=== PATIENT | male | born 1960 | race Caucasian/White ===

== ENCOUNTER → 2016-02-22 | Outpatient (CLI) | payer MEDICARE, MEDICAID ==
[~2016-02-22] MED LIST: /HCTZ25TA PO; AMBIEN PO; AMIT25TA PO; AMLO10TA2 PO; ATOR1TAB19 PO; COUM2.5T11 PO; DEPA500T2 PO; ESZO1TAB3 PO; FLOM5CAP PO; HYDR12.55 PO; HYDR25TAB PO; INVE6TAB2 PO; LAMO100T PO; LIPI10TA PO; LISI10TA4 PO; MELO15TA3 PO; METF500T PO; MILKSUS PO; MIRA3350 PO; NICO21DI5 TD; OLAN5TAB PO; OXYC-299 PO; OXYC5TAB2 PO; PERC5TAB6 PO; PRIN10TA PO; SENO8.6T2 PO; SERO150T PO; SERO200T PO; SERT-138 PO; SPIRIVA INH; TAMS0.4C PO; TIOT18INH INH; TRAZO50TA PO; TYLE325T5 PO; XANA1TAB2 PO; ZYPR5TAB2 PO; [UNRECOGNIZED DRUG - CODE] SL; alprazolam OR
--- NOTE | 2016-02-22 15:05 | REP ---
Clinical: Spondylosis. Technique: AP, lateral, bilateral oblique, flexion/extension and coned-down views. Findings: Alignment and lordosis is maintained. The vertebral bodies including transverse process and spinous processes are intact and without acute fracture / compression injury or subluxation. No evidence for spondylolysis or spondylolisthesis. Moderate multilevel degenerative disc disease includes anterior spurring/osteophytes, endplate sclerosis and disc space narrowing as well as hypertrophic facet changes at L5-S1. Impression: Moderate multilevel degenerative changes Signed by Alonso Harvey MD 02/22/2016 02:57 P
--- NOTE | 2016-02-22 15:10 | REP ---
CT pelvis without contrast 02/22/2016 Indication: fracture of sacrum, sequela of prior fracture; comparison made with prior abdominal series 12/09/2005 Technique: 3 mm contiguous spiral axial sections performed through the pelvis without contrast. The bony pelvis is without acute fracture or pelvic diastases. The hips are fracture or dislocation. Mild anterior angulation of the distal coccyx which can be compatible with anatomic variant or old healed fracture. Visualized portions of the abdominal aorta with atherosclerotic changes and no aneurysm. There are a few scattered sigmoid diverticula. Visualized portions of small bowel , terminal ileum, and appendix within normal limits. The bladder is unremarkable. Prostate is not enlarged. There is no free air or ascites Impression: Pelvis without acute fracture dislocation. Anterior angulation of the pelvis can be normal variant or sequela of previous trauma/old healed fracture. Signed by Aydee Villar MD 02/22/2016 03:02 P
--- NOTE | 2016-02-22 16:00 | REP ---
CERVICAL SPINE, SEVEN VIEWS: HISTORY: Spondylosis. The cervical sine is visualized from C1 to C6 in the lateral radiographs. There is no acute fracture. The C3-4 and C4-5 intervertebral discs are decreased in height consistent with disc degeneration. Osteophytes are present on C2 through 4. There is narrowing of the right C6 neural foramen secondary to uncinate process hypertrophy. The left neural foramina are not well seen. There are 2 mm of anterior subluxation of C3 on 4 and C4 on 5 with flexion. This is not seen in neutral or extension radiographs. IMPRESSION: Degenerative change as described above. Signed by Neftali Stevens MD 02/22/2016 04:49 P
== END ==
LOC: M RAD 14:12
PROVIDERS: ATTEND Neurological Surgery
DX: S32.19XS Other fracture of sacrum, sequela (principal)

== ENCOUNTER → 2016-03-03 | Outpatient (CLI) | payer MEDICARE, MEDICAID ==
--- NOTE | 2016-03-03 23:52 | ECWPNPC ---
PATIENT NAME: TROY ZARAGOZA : 1960 GENDER: MALE VISIT DATE: 03/03/2016 DISCHARGE DATE: 03/03/16 1145 VISIT LOCKED DATE TIME: PHYSICIAN: BEN LOPEZ RESOURCE: BEN LOPEZ REASON FOR APPOINTMENT 1. FOLLOW UP-POST CAUDAL HISTORY OF PRESENT ILLNESS HISTORY OF PRESENT ILLNESS: HERE FOR POST PROCEDURE F/U.HAD LESI 01-26-16.REPORTING VAGUE IMPROVEMENT IN LBP BUT STATES HE IS OVERALL BETTER SINCE HAVING PROCEDURES HERE.HAVING LEFT LBP THAT RADIATES INTO LEFT ANAL AND TESTICLE AREA.RATING PAIN VAS 4/10.LEFT GROIN,AND TESTICLE PAIN HAS NEVER RESPONDED TO OUR PROCEDURES HERE.PATIENT WILL BE HAVING [place] FOOT SURGERY [place] WITH DR. BERMUDEZ. PAIN THE PATIENT DESCRIBES THE PAIN... FALL RISK SCREENING: SCREENING :NO FALLS IN THE PAST YEAR CURRENT MEDICATIONS TAKING METFORMIN HCL 500 MG TABLET 1 TABLET WITH MEALS ORALLY TWICE A DAY, NOTES: UNSURE TAKING ATORVASTATIN CALCIUM 10 MG TABLET 1 TABLET ORALLY ONCE A DAY, NOTES: UNSURE TAKING FLOMAX 0.4 MG CAPSULE 2 CAPSULE 30 MINUTES AFTER THE SAME MEAL EACH DAY ORALLY ONCE A DAY, NOTES: UNSURE TAKING LAMOTRIGINE 100 MG TABLET 1 TAB ORALLY TWICE A DAY, NOTES: UNSURE TAKING LISINOPRIL 20 MG TABLET 1 TABLET ORALLY ONCE A DAY, NOTES: UNSURE TAKING TIZANIDINE HCL 4 MG TABLET 1 TABLET NEEDED ORALLY EVERY 8 HRS, NOTES: UNSURE TAKING CYMBALTA 30 MG CAPSULE DELAYED RELEASE PARTICLES 1 CAPSULE ORALLY ONCE A DAY, NOTES: UNSURE TAKING GLUCOSAMINE CHONDROITIN COMPLX - TABLET 1 TAB ORALLY BID, NOTES: UNSURE NOT-TAKING SEROQUEL 25 MG TABLET 1 TABLET ORALLY DAILY, NOTES: UNSURE NOT-TAKING VALIUM 10 MG TABLET 1 ORALLY 1 TAB 1HR PRE PROC. MDD1, NOTES: UNSURE NOT-TAKING OXYCODONE HCL 5 MG TABLET 2 ORALLY 2 TAB 1HR PRE PROC MDD2, NOTES: UNSURE NOT-TAKING GABAPENTIN 300 MG CAPSULE 1 CAPSULE ORALLY THREE TIMES A DAY, NOTES: UNSURE NOT-TAKING METHYLPREDNISOLONE 4 MG KIT ORALLY , NOTES: 11/25 7AM NOT-TAKING OXYCODONE-ACETAMINOPHEN 5-325 MG TABLET 1-2 TABLETS NEEDED ORALLY DIRECTED MDD 8TABLETS NOT-TAKING CLONIDINE HCL 0.1 MG TABLET DIRECTED ORALLY Q8H IF NEEDED FOR WITHDRAWAL SYMPTOMS MAX 3 PER DAY, NOTES: MADE HIM SICK/ DID NOT WORK NOT-TAKING AMLODIPINE 10 MG TABLET ORAL NOT-TAKING LISINOPRIL 10 10 MG TABLET DIRECTED ORAL NOT-TAKING AMLODIPINE 10 MG TABLET ORAL NOT-TAKING HYDROCHLOROTHIAZIDE 25 25 MG TABLET ORAL NOT-TAKING ALPRAZOLAM 1 MG TABLET 1 TABLET ORALLY TWICE A DAY NOT-TAKING ESZOPICLONE 3 MG TABLET 1 TABLET IMMEDIATELY BEFORE BEDTIME ORALLY ONCE A DAY NOT-TAKING CIPRO 500 MG TABLET 1 TABLET ORALLY TWICE A DAY NOT-TAKING FLEXERIL 10 MG 30 10 MG TABLETS ONE TABLET ORALLY EVERY 8 HOURS PRN PAIN MEDICATION LIST REVIEWED AND RECONCILED WITH THE PATIENT PAST MEDICAL HISTORY BIPOLAR HYPERTENSION DIABETES MALLITUS DEPRESSION BPH ALLERGIES PENICILLIN (FOR ALLERGIES USE ONLY): HIVES: ALLERGY HALDOL: MUSCLE SPASMS, HALLUCINATIONS: ALLERGY AMBIEN: HALLUCINATIONS: SIDE EFFECTS SOCIAL HISTORY GENERAL: TOBACCO USE ARE YOU A:CURRENT SMOKER HOW MANY CIGARETTES A DAY DO YOU SMOKE?21-30 HOW SOON AFTER YOU WAKE UP DO YOU SMOKE YOUR FIRST CIGARETTE?WITHIN 5 MIN HOW OFTEN DO YOU SMOKE CIGARETTES?EVERY DAY PATIENT COUNSELED ON THE DANGERS OF TOBACCO USE AND URGED TO QUIT: COUNCELED ON THE IMPORTANCE OF QUITTING. PT STATES HE IS NOT READY AT THIS TIME. ARE YOU INTERESTED IN QUITTING?NOT READY TO QUIT LEARNING BARRIERS / SPECIAL NEEDS ORIENTED TO PLAN OF CARE: PATIENT, PAIN MANAGEMENT PATIENT, ORIENTED TO PLAN OF CARE: PATIENT, PAIN MANAGEMENT PATIENT. NEW PATIENT PAIN DIARY TODAY'S VISITNOTES FROM 0-10, WHAT LEVEL IS YOUR PAIN TODAY?0 PAIN CLINIC PFS, CLERGY, PUBLIC HEALTH REFERRALS PFS REFERRAL NEEDED?NO CLERGY REFERRAL NEEDED?NO PUBLIC HEALTH REFERRAL NEEDED?NO WAS THE PROVIDER NOTIFIED OF ANY PERTINENT INFO?NO PFS REFERRAL NEEDED?NO CLERGY REFERRAL NEEDED?NO PUBLIC HEALTH REFERRAL NEEDED?NO WAS THE PROVIDER NOTIFIED OF ANY PERTINENT INFO?NO REVIEW OF SYSTEMS CONSTITUTIONAL: ANY CHANGE IN YOUR MEDICAL CONDITION? NO . CHILLS NO . FEVER NO . INFECTION: DO YOU HAVE NEW INFECTIONS? NO . DO YOU HAVE HISTORY OF MRSA? NO . MUSCULOSKELETAL: ANY NEW PATTERNS OF PAIN OR NUMBNESS? NO . GASTROENTEROLOGY: ANY NEW CHANGE IN BOWEL CONTROL? NO . GENITOURINARY: ANY NEW CHANGE IN BLADDER CONTROL? NO . IS THERE A CHANCE YOU COULD BE ? NO . HEMATOLOGY/LYMPH: DO YOU TAKE ANY BLOOD THINNERS? (FOR EXAMPLE- COUMADIN, PLAVIX, AGGRENOX, PLATEL, PRADAXA, OR XARELTO) NO . WHEN WAS YOUR LAST DOSE? DATE: TIME: . NEUROLOGY: HAVE YOU FALLEN IN THE PAST 6 MONTHS? NO . ANY NEW EXTREMITY NUMBNESS OR WEAKNESS? NO . CARDIOLOGY: DO YOU HAVE A PACEMAKER OR DEFIBRILLATOR? NO . RESPIRATORY: HAVE YOU BEEN SICK IN THE PAST WEEK? YES, BRONCHITIS LAST WEEK. TREATED WITH ANTIBIOTIC(NOT SURE WHAT) . FEVER NO . FLU LIKE SYMPTOMS? NO . COUGH YES, NON-PRODUCTIVE . INTEGUMENTARY: DO YOU HAVE ANY RASHES OR OPEN SORES? NO . ALLERGIC/IMMUNO: ARE YOU ALLERGIC TO SHELLFISH OR IV DYE? NO . ANY NEW ALLERGIES? NO . PSYCHIATRIC: DO YOU HAVE THOUGHTS OF HURTING YOURSELF OR SOMEONE ELSE? NO . ARE YOU ABUSED, NEGLECTED, OR IN AN UNSAFE ENVIRONMENT? NO . ENDOCRINOLOGY: ARE YOU DIABETIC? YES . OTHER: DO YOU NEED ANY PRESCRIPTIONS? NO . IF YES, PLEASE LIST: ____ . ANY NEW PROBLEMS WITH YOUR MEDICATIONS? NO . WHEN DID YOU LAST EAT? ____ . WHEN DID YOU LAST DRINK? ____ . WHAT DID YOU LAST DRINK? ____ . NAME OF PERSON DRIVING YOU HOME? ____ . DO YOU HAVE ANY OTHER QUESTIONS OR CONCERNS NO . REVIEWED BY: PROVIDER: BEN COTTON . VITAL SIGNS WT 223 LBS, HT 70 IN, BMI 31.99 INDEX, BP 151/97 MM HG, HR 85 /MIN, RR 18 /MIN, TEMP 97.9 F, OXYGEN SAT % 97%, NA INITIALS SC 11:07. EXAMINATION LUMBAR SPINE/LOWER BACK: LOWER BACK:THERE IS TENDERNESS AT LOWER BACK AND THE PARA SPINAL MUSCLE GROUP. STRAIGHT LEG RAISING TEST:POSITIVE AT 45 DEGREES ON, THE LEFT.NEGATIVE ON THE RIGHT.. MOTOR SYSTEM:5/5 BLE. SENSORY EXAM:NORMAL. REFLEXES:2/4 AND SYMMETRIC BLE. DIAGNOSTIC DATA-MRI L/S SPINE-09/23/1556-[id number] EXT-2016 REVIEWED. ASSESSMENTS PROTRUSION OF LUMBAR INTERVERTEBRAL DISC - M51.26 (PRIMARY) LUMBAR RADICULAR PAIN - M54.16 PROCEDURE CODES FA211 ESTABILISHED PATIENT [facility] CHARGE L8931 PAIN ASSESS POS TOOL F/U PLAN DOC G8427 DOC MEDS VERIFIED W/PT OR RE FOLLOW UP 2 MONTHS ELECTRONICALLY SIGNED BY YURY FALL ON 03/03/2016 AT 12:03 PM EST DISCLAIMER : THIS IS A VISIT SUMMARY EXTRACTED FROM THE [email or web address] CHART. IT IS NOT A COPY OF THE [email or web address] PROGRESS NOTE. TRAVON
== END ==
LOC: M PAIN 10:40
PROVIDERS: ATTEND Nurse Practitioner Family
DX: Z09 Encounter for follow-up examination after completed treatment for conditions other than malignant neoplasm (principal); M51.26 Other intervertebral disc displacement, lumbar region; M54.16 Radiculopathy, lumbar region; I10 Essential (primary) hypertension; E11.69 Type 2 diabetes mellitus with other specified complication; F31.9 Bipolar disorder, unspecified; F17.200 Nicotine dependence, unspecified, uncomplicated; Z88.0 Allergy status to penicillin; Z88.8 Allergy status to other drugs, medicaments and biological substances; Z79.84 Long term (current) use of oral hypoglycemic drugs; Z79.899 Other long term (current) drug therapy

== ENCOUNTER → 2016-03-04 | Day surgery (SDC) | payer MEDICARE ==
[~2016-03-04] VITALS: Ht 177.8 cm; Wt 100.7 kg
[~2016-03-04] MED LIST changes: +BACITRACIN PWD 50,000 UNITS VIAL As Ordered ONE; +BUPIVACAINE HCL 0.5% 30 ML VIAL As Ordered ONE; +KETAMINE HCL 200 MG/20 ML VIAL As Ordered ONE; +LIDOCAINE 2% INJ 100 MG/5 ML SDV (FOR ANES.) As Ordered ONE; +LIDOCAINE 2% MDV 20 ML VIAL As Ordered ONE; +LR 1,000 ML IV SCH; +MIDAZOLAM INJ 2 MG/2 ML VIAL (J2250) As Ordered ONE; +NEOSPORIN GU IRRIG 20 ML VIAL As Ordered ONE; +ONDANSETRON 4MG/2ML VIAL (J2405) As Ordered ONE; +ONDANSETRON 4MG/2ML VIAL (J2405) IV PRN; +PROPOFOL 200 MG/20 ML VIAL As Ordered ONE; +VANCOMYCIN HCL 1,000 MG, VIAL MATE ADAPTER 1 EACH in D5W 250 ML IV ONE; +dexameTHASONE 4 MG/ML 1ML VIAL (J1100) As Ordered ONE; +fentaNYL 100 MCG/2 ML INJECTION (J3010) As Ordered ONE
[2016-03-04] MEDS: PERCOCET 5MG/325MG TAB PO PRN ×2 (10:35→11:20)
[2016-03-04 11:30] VITALS: BP 154/81
--- NOTE | 2016-03-04 11:31 | REP ---
Portable bilateral foot radiographs: Six views. History: Postoperative views. Findings: Three views of each foot demonstrate that osteotomies have been performed resecting the distal end of the proximal phalanx of the fifth toe on both sides. X-rays are taken through overlying dressing. No other abnormality. Signed by Pineda Griggs MD 03/04/2016 02:39 P
--- NOTE | 2016-03-04 13:02 | RO ---
DATE OF PROCEDURE: 03/04/2016 PREOPERATIVE DIAGNOSIS: Hammertoe deformity 5th toe bilateral. POSTOPERATIVE DIAGNOSIS: Hammertoe deformity 5th toe bilateral. PROCEDURE: 1. Distal interphalangeal joint arthroplasty 5th toe right foot. 2. Distal interphalangeal joint arthroplasty 5th toe left foot. SURGEON: Alireza Maciel DPM ENVIRONMENTAL FIELD TECHNICIAN: None. ANESTHESIA: Local, monitored anesthesia care (MAC). IRRIGATION: Dilute bacitracin, neomycin and polymyxin B solution. HEMOSTASIS: Ankle pneumatic tourniquet at 200 mmHg, 9 minutes on the right foot and 9 minutes on the left foot. IMPLANTS USED: None. DESCRIPTION OF PROCEDURE: On 03/04/2016, this 55-year-old white male was taken from his hospital room to the operating room and placed on the operating room table in a supine position. Following the induction of IV sedation and local and regional anesthesia, the right and left lower extremity was prepped and draped in the usual aseptic manner. Sterile draping was completed. The ankle pneumatic tourniquet was rapidly inflated on the right extremity and the following procedure was performed. DISTAL INTERPHALANGEAL JOINT ARTHROPLASTY 5TH TOE RIGHT FOOT: Attention was directed to the patient's right foot where there was noted to be a hammertoe deformity. At this time, a 3 cm incision was placed over the proximal interphalangeal joint. The incision was deepened in subcutaneous tissues and all coursing venous tributaries were identified, underscored, clamped, cut, ligated and electrocoagulated as necessary. Transverse tenotomy and capsulotomy was performed at the level of the proximal interphalangeal joint. The medial and lateral collateral ligaments were sharply dissected free from the head of the proximal phalanx. Utilizing a power saw, an osteotomy was performed through the anatomical neck of the proximal phalanx from dorsal to plantar, medial to lateral, through and through and extirpated from the wound in toto. The wound was flushed with copious amounts of dilute bacitracin, neomycin and polymyxin B solution. Utilizing a 4.0 branded loop nylon suture, a 4-stranded core repair was performed in a M-shaped fashion coapting the extensor digitorum tendon to the 5th toe. The skin was coapted and maintained with #4-0 Prolene in a simple interrupted and horizontal mattress type fashion. Attention was directed towards closure bandaging, where 2 mg of dexamethasone sodium phosphate was instilled proximal in the surgical site. Attention was directed towards bandaging where a sterile compressive bandage was applied consisting of Adaptic, 4 x 4's, 4 x 4 splints, Juan Luis and Coban. Attention was then directed to the patient's left foot, where the ankle pneumatic tourniquet was rapidly inflated and the following procedure was performed. PROXIMAL INTERPHALANGEAL JOINT ARTHROPLASTY 5TH TOE LEFT FOOT: Attention was directed to the patient's 5th toe of the left foot where the procedure performed on the 5th toe of the right foot was then performed on the 5th toe of the left foot, though variation that of anatomical location. Patient having apparently tolerated the surgical procedure well was taken from the operating room (OR) to the recovery room with vital signs stable and the patient afebrile for further monitoring by the anesthesia department. All surgical specimens removed during the operative procedure were sent to pathology for gross and microscopic examination. Postoperative instructions will be given upon discharge.
== END | disposition home or self-care (01) ==
LOC: M SDC 07:20
PROVIDERS: ATTEND Podiatrist
DX: M20.42 Other hammer toe(s) (acquired), left foot (principal); M20.41 Other hammer toe(s) (acquired), right foot; F17.290 Nicotine dependence, other tobacco product, uncomplicated; I10 Essential (primary) hypertension; E11.40 Type 2 diabetes mellitus with diabetic neuropathy, unspecified; R29.898 Other symptoms and signs involving the musculoskeletal system; M51.36 Other intervertebral disc degeneration, lumbar region; M15.0 Primary generalized (osteo)arthritis; G89.29 Other chronic pain; F31.9 Bipolar disorder, unspecified; J44.9 Chronic obstructive pulmonary disease, unspecified; N40.0 Benign prostatic hyperplasia without lower urinary tract symptoms; Z88.0 Allergy status to penicillin; Z88.8 Allergy status to other drugs, medicaments and biological substances; Z79.899 Other long term (current) drug therapy; Z96.652 Presence of left artificial knee joint
CPT/HCPCS: 28285; 73630; 88300; J1100; J2250; J2405; J3010; J3370

== ENCOUNTER → 2016-05-02 | Outpatient (CLI) | payer MEDICARE, MEDICAID ==
[~2016-05-02] MED LIST changes: -BACITRACIN PWD 50,000 UNITS VIAL As Ordered ONE; -BUPIVACAINE HCL 0.5% 30 ML VIAL As Ordered ONE; -KETAMINE HCL 200 MG/20 ML VIAL As Ordered ONE; -LIDOCAINE 2% INJ 100 MG/5 ML SDV (FOR ANES.) As Ordered ONE; -LIDOCAINE 2% MDV 20 ML VIAL As Ordered ONE; -LR 1,000 ML IV SCH; -MIDAZOLAM INJ 2 MG/2 ML VIAL (J2250) As Ordered ONE; -NEOSPORIN GU IRRIG 20 ML VIAL As Ordered ONE; -ONDANSETRON 4MG/2ML VIAL (J2405) As Ordered ONE; -ONDANSETRON 4MG/2ML VIAL (J2405) IV PRN; -PROPOFOL 200 MG/20 ML VIAL As Ordered ONE; -VANCOMYCIN HCL 1,000 MG, VIAL MATE ADAPTER 1 EACH in D5W 250 ML IV ONE; -dexameTHASONE 4 MG/ML 1ML VIAL (J1100) As Ordered ONE; -fentaNYL 100 MCG/2 ML INJECTION (J3010) As Ordered ONE
--- NOTE | 2016-05-03 02:33 | ECWPNPC ---
PATIENT NAME: TROY ZARAGOZA : 1960 GENDER: MALE VISIT DATE: 05/02/2016 DISCHARGE DATE: 05/02/16 1151 VISIT LOCKED DATE TIME: PHYSICIAN: BEN LOPEZ RESOURCE: BEN LOPEZ REASON FOR APPOINTMENT 1. FOLLOWUP-BACK HISTORY OF PRESENT ILLNESS HISTORY OF PRESENT ILLNESS: HERE FOR CHRONIC LOW BACK PAIN .RATING PAIN VAS 4/10.REVIEWED MRI L/S SPINE SHOWING MULTILEVEL FACET ARTHROPATHY.DISCUSSED TREATMENT OPTIONS.PAIN IS LOCATED ACROSS LOW BACK L>R.PAIN IS AGGREVATED BY PROLONGED SITTING .RELIEVED BY TYLENOL OR IBUPROFEN PRN AND REPOSITIONING.LAST ATTENDED PT ONE YEAR AGO.THIS WAS SOMEWHAT HELPFUL. PAIN THE PATIENT DESCRIBES THE PAIN... FALL RISK SCREENING: SCREENING :NO FALLS IN THE PAST YEAR CURRENT MEDICATIONS TAKING METFORMIN HCL 500 MG TABLET 1 TABLET WITH MEALS ORALLY TWICE A DAY, NOTES: UNSURE TAKING ATORVASTATIN CALCIUM 10 MG TABLET 1 TABLET ORALLY ONCE A DAY, NOTES: UNSURE TAKING FLOMAX 0.4 MG CAPSULE 2 CAPSULE 30 MINUTES AFTER THE SAME MEAL EACH DAY ORALLY ONCE A DAY, NOTES: UNSURE TAKING LAMOTRIGINE 100 MG TABLET 1 TAB ORALLY TWICE A DAY, NOTES: UNSURE TAKING LISINOPRIL 20 MG TABLET 1 TABLET ORALLY ONCE A DAY, NOTES: UNSURE TAKING TIZANIDINE HCL 4 MG TABLET 1 TABLET NEEDED ORALLY EVERY 8 HRS, NOTES: UNSURE TAKING CYMBALTA 30 MG CAPSULE DELAYED RELEASE PARTICLES 1 CAPSULE ORALLY ONCE A DAY, NOTES: UNSURE TAKING GLUCOSAMINE CHONDROITIN COMPLX - TABLET 1 TAB ORALLY BID, NOTES: UNSURE NOT-TAKING SEROQUEL 25 MG TABLET 1 TABLET ORALLY DAILY, NOTES: UNSURE NOT-TAKING VALIUM 10 MG TABLET 1 ORALLY 1 TAB 1HR PRE PROC. MDD1, NOTES: UNSURE NOT-TAKING OXYCODONE HCL 5 MG TABLET 2 ORALLY 2 TAB 1HR PRE PROC MDD2, NOTES: UNSURE NOT-TAKING GABAPENTIN 300 MG CAPSULE 1 CAPSULE ORALLY THREE TIMES A DAY, NOTES: UNSURE NOT-TAKING METHYLPREDNISOLONE 4 MG KIT ORALLY , NOTES: 11/25 7AM NOT-TAKING OXYCODONE-ACETAMINOPHEN 5-325 MG TABLET 1-2 TABLETS NEEDED ORALLY DIRECTED MDD 8TABLETS NOT-TAKING CLONIDINE HCL 0.1 MG TABLET DIRECTED ORALLY Q8H IF NEEDED FOR WITHDRAWAL SYMPTOMS MAX 3 PER DAY, NOTES: MADE HIM SICK/ DID NOT WORK NOT-TAKING AMLODIPINE 10 MG TABLET ORAL NOT-TAKING LISINOPRIL 10 10 MG TABLET DIRECTED ORAL NOT-TAKING AMLODIPINE 10 MG TABLET ORAL NOT-TAKING HYDROCHLOROTHIAZIDE 25 25 MG TABLET ORAL NOT-TAKING ALPRAZOLAM 1 MG TABLET 1 TABLET ORALLY TWICE A DAY NOT-TAKING ESZOPICLONE 3 MG TABLET 1 TABLET IMMEDIATELY BEFORE BEDTIME ORALLY ONCE A DAY NOT-TAKING CIPRO 500 MG TABLET 1 TABLET ORALLY TWICE A DAY NOT-TAKING FLEXERIL 10 MG 30 10 MG TABLETS ONE TABLET ORALLY EVERY 8 HOURS PRN PAIN MEDICATION LIST REVIEWED AND RECONCILED WITH THE PATIENT PAST MEDICAL HISTORY BIPOLAR HYPERTENSION DIABETES MALLITUS DEPRESSION BPH ALLERGIES PENICILLIN (FOR ALLERGIES USE ONLY): HIVES: ALLERGY HALDOL: MUSCLE SPASMS, HALLUCINATIONS: ALLERGY AMBIEN: HALLUCINATIONS: SIDE EFFECTS SOCIAL HISTORY GENERAL: TOBACCO USE ARE YOU A:NONSMOKER LEARNING BARRIERS / SPECIAL NEEDS ORIENTED TO PLAN OF CARE: PATIENT, PAIN MANAGEMENT PATIENT, ORIENTED TO PLAN OF CARE: PATIENT, PAIN MANAGEMENT PATIENT. NEW PATIENT PAIN DIARY TODAY'S VISITNOTES FROM 0-10, WHAT LEVEL IS YOUR PAIN TODAY?0 PAIN CLINIC PFS, CLERGY, PUBLIC HEALTH REFERRALS PFS REFERRAL NEEDED?NO CLERGY REFERRAL NEEDED?NO PUBLIC HEALTH REFERRAL NEEDED?NO WAS THE PROVIDER NOTIFIED OF ANY PERTINENT INFO?NO PFS REFERRAL NEEDED?NO CLERGY REFERRAL NEEDED?NO PUBLIC HEALTH REFERRAL NEEDED?NO WAS THE PROVIDER NOTIFIED OF ANY PERTINENT INFO?NO REVIEW OF SYSTEMS CONSTITUTIONAL: ANY CHANGE IN YOUR MEDICAL CONDITION? YES PT HAD SURGERY BOTH FEET [facility] LATE FEBRUARY WITH DR. BERMUDEZ. . CHILLS NO . FEVER NO . INFECTION: DO YOU HAVE NEW INFECTIONS? NO . DO YOU HAVE HISTORY OF MRSA? NO . MUSCULOSKELETAL: ANY NEW PATTERNS OF PAIN OR NUMBNESS? YES PT REPORTS BACK PAIN FEELS MORE &QUOT;SHALLOW&QUOT; THAN IT USED TO . GASTROENTEROLOGY: ANY NEW CHANGE IN BOWEL CONTROL? NO . GENITOURINARY: ANY NEW CHANGE IN BLADDER CONTROL? NO . IS THERE A CHANCE YOU COULD BE ? NO . HEMATOLOGY/LYMPH: DO YOU TAKE ANY BLOOD THINNERS? (FOR EXAMPLE- COUMADIN, PLAVIX, AGGRENOX, PLATEL, PRADAXA, OR XARELTO) NO . WHEN WAS YOUR LAST DOSE? DATE: TIME: . NEUROLOGY: HAVE YOU FALLEN IN THE PAST 6 MONTHS? NO . ANY NEW EXTREMITY NUMBNESS OR WEAKNESS? NO . CARDIOLOGY: DO YOU HAVE A PACEMAKER OR DEFIBRILLATOR? NO . RESPIRATORY: HAVE YOU BEEN SICK IN THE PAST WEEK? NO . FEVER NO . FLU LIKE SYMPTOMS? NO . COUGH NO . INTEGUMENTARY: DO YOU HAVE ANY RASHES OR OPEN SORES? NO . ALLERGIC/IMMUNO: ARE YOU ALLERGIC TO SHELLFISH OR IV DYE? NO . ANY NEW ALLERGIES? NO . PSYCHIATRIC: DO YOU HAVE THOUGHTS OF HURTING YOURSELF OR SOMEONE ELSE? NO . ARE YOU ABUSED, NEGLECTED, OR IN AN UNSAFE ENVIRONMENT? NO . ENDOCRINOLOGY: ARE YOU DIABETIC? YES . OTHER: DO YOU NEED ANY PRESCRIPTIONS? NO . IF YES, PLEASE LIST: ____ . ANY NEW PROBLEMS WITH YOUR MEDICATIONS? NO . WHEN DID YOU LAST EAT? ____ . WHEN DID YOU LAST DRINK? ____ . WHAT DID YOU LAST DRINK? ____ . NAME OF PERSON DRIVING YOU HOME? ____ . DO YOU HAVE ANY OTHER QUESTIONS OR CONCERNS NO . REVIEWED BY: PROVIDER: BEN COTTON . VITAL SIGNS WT 232.8 LBS, HT 70 IN, BMI 33.40 INDEX, BP 149/91 MM HG, HR 76 /MIN, RR 18 /MIN, TEMP 97.6 F, OXYGEN SAT % 95%, SAFE IN ENV? (Y/N) YES, NA INITIALS SC 11:03, REVIEWED BY: ALEJANDRA. EXAMINATION LUMBAR SPINE/LOWER BACK: LOWER BACK:THERE IS TENDERNESS AT LOWER BACK AND THE PARA SPINAL MUSCLE GROUP. STRAIGHT LEG RAISING TEST:POSITIVE AT 45 DEGREES ON, THE LEFT.NEGATIVE ON THE RIGHT.. MOTOR SYSTEM:5/5 BLE. SENSORY EXAM:NORMAL. REFLEXES:2/4 AND SYMMETRIC BLE. DIAGNOSTIC DATA-MRI L/S SPINE-09/23/1552-[id number] EXT-2016 REVIEWED. ASSESSMENTS PROTRUSION OF LUMBAR INTERVERTEBRAL DISC - M51.26 (PRIMARY) LUMBAR RADICULAR PAIN - M54.16 TREATMENT PROTRUSION OF LUMBAR INTERVERTEBRAL DISC LUMBAR FACET THERAPEUTICBEN LOPEZ 05/02/2016 11:34:13 AM > BILAT. LUMBAR FACET THERAPEUTIC L3/4-L4/5 NOTES: # 226 TOBACCO USE SCREENING/INTERVENTION: PATIENT CURRENTLY USED TOBACCO. WAS OFFERED SMOKING CESSATION FOR GUIDANCE IN QUITTING THROUGH THE [facility] QUITS PROGRAM AND THE [facility] CESSATION PROGRAM. , #128 - SCREENING BMI AND F/U PLAN IN : BMI ABOVE NORMAL TODAY. DISCUSSED WITH PATIENT NUTRITIONAL FOOD CHOICES TO ASSIST WITH WEIGHT LOSS. RECCOMMENDED REDUCING SALT, SUGAR, SODA INTAKE. RECOMMEND INCREASE ACTIVITY TO INCLUDE WALKING ON A REGULAR BASIS. PROFESSIONAL NUTRITIONAL NUTRITIONAL GUIDANCE WAS OFFERED AND WAS DECLINED. , PATIENT WAS ADVISED TO START A WALKING PROGRAM TO STRENGTHEN LUMBAR PARASPINAL MUSCLES AND IMPROVE MOBILITY. THEY WERE ADVISED THAT THIS WILL IMPROVE WEIGHT LOSS AND ALSO DEPRESSION/FIBROMYALGIA SYMPTOMS. ADVISED TO WALK 10 MINUTES EVERY OTHER DAY ON A FLAT SURFACE. EMPHASIZED THE IMPORTANCE OF DOING THIS CONSISTANTLY AND NOT SPORATICALLY TO AVOID INJURY. STRONG ADVISED NOT TO DO MORE THAN 10 MINUTES EVERY OTHER DSY FOR THE FIRST 4 WEEKS.,FACET JOINT INJECTION: YOUR EXPERIENCE MATERIAL WAS PRINTED. PROCEDURE CODES FA211 ESTABILISHED PATIENT [facility]AC[facility] CHARGE G8783 BP SCR PRFRM RCMDD DEFIND SCR INTVL G8730 PAIN ASSESS POS TOOL F/U PLAN DOC 3016F PT SCRND UNHLTHY OH USE 1124F ACP DISCUSS-NO [id number] DOCD 0518F FALL PLAN OF CARE DOCD G8427 DOC MEDS VERIFIED W/PT OR RE G8417 BMI >=30 CALCUATE W/FOLLOWUP 3288F FALL RISK ASSESSMENT DOCD 4004F PT TOBACCO SCREEN RCVD TLK DISPOSITION & COMMUNICATION FOLLOW UP 2WK POST (REASON: L33/4-L4/5 LUMBAR THERAPEUTIC FACET) ELECTRONICALLY SIGNED BY YURY FALL ON 05/02/2016 AT 04:33 PM EDT DISCLAIMER : THIS IS A VISIT SUMMARY EXTRACTED FROM THE [employer] CHART. IT IS NOT A COPY OF THE [employer] PROGRESS NOTE. MTDD
== END ==
LOC: M PAIN 10:40
PROVIDERS: ATTEND Nurse Practitioner Family
DX: M51.26 Other intervertebral disc displacement, lumbar region (principal); M54.16 Radiculopathy, lumbar region; G89.29 Other chronic pain; Z79.899 Other long term (current) drug therapy; Z79.84 Long term (current) use of oral hypoglycemic drugs; I10 Essential (primary) hypertension; M79.7 Fibromyalgia; E11.9 Type 2 diabetes mellitus without complications; F32.9 Major depressive disorder, single episode, unspecified; N40.0 Benign prostatic hyperplasia without lower urinary tract symptoms; Z72.0 Tobacco use; E66.9 Obesity, unspecified; Z88.8 Allergy status to other drugs, medicaments and biological substances; Z88.0 Allergy status to penicillin

== ENCOUNTER → 2016-05-20 | Outpatient (CLI) | payer MEDICARE, MEDICAID ==
[~2016-05-20] MED LIST changes: +BUPIVACAINE HCL 0.25% 30 ML VIAL As Ordered ONE; +ISOVUE-M 300 61% 15ML VIAL (Q9967) As Ordered ONE; +LIDOCAINE 1% SDV INJ 30 ML VIAL As Ordered ONE; +TRIAMCINOLONE ACETONIDE SUSP 40 MG/ML VIAL (J3301) As Ordered ONE; +diazePAM 5 MG TAB As Ordered ONE
--- NOTE | 2016-05-20 14:30 | REP ---
C-ARM VIEWS LUMBAR SPINE: CLINICAL HISTORY: Pain. Two C-arm views lumbar spine are performed during injection by Dr. Poe. Bono are seen along the lower lumbar spine and contrast is injected. Fluoroscopy time is 18 seconds. Signed by Augusto Villareal MD 05/20/2016 05:40 P
--- NOTE | 2016-06-01 00:09 | ECWPNPC ---
PATIENT NAME: TROY ZARAGOZA : 1960 GENDER: MALE VISIT DATE: 05/20/2016 DISCHARGE DATE: 05/20/16 1423 VISIT LOCKED DATE TIME: PHYSICIAN: KATRIN BERRY RESOURCE: KATRIN BERRY REASON FOR APPOINTMENT 1. LUMBAR FACET THERAPEUTIC HISTORY OF PRESENT ILLNESS HISTORY OF PRESENT ILLNESS: PAIN THE PATIENT DESCRIBES THE PAIN... FALL RISK SCREENING: SCREENING :NO FALLS IN THE PAST YEAR CURRENT MEDICATIONS TAKING METFORMIN HCL 500 MG TABLET 1 TABLET WITH MEALS ORALLY TWICE A DAY, NOTES: [id number] TAKING ATORVASTATIN CALCIUM 10 MG TABLET 1 TABLET ORALLY ONCE A DAY, NOTES: UNSURE TAKING FLOMAX 0.4 MG CAPSULE 2 CAPSULE 30 MINUTES AFTER THE SAME MEAL EACH DAY ORALLY ONCE A DAY, NOTES: UNSURE TAKING LAMOTRIGINE 100 MG TABLET 1 TAB ORALLY TWICE A DAY, NOTES: UNSURE TAKING LISINOPRIL 20 MG TABLET 1 TABLET ORALLY ONCE A DAY, NOTES: UNSURE TAKING TIZANIDINE HCL 4 MG TABLET 1 TABLET NEEDED ORALLY EVERY 8 HRS, NOTES: UNSURE TAKING CYMBALTA 30 MG CAPSULE DELAYED RELEASE PARTICLES 1 CAPSULE ORALLY ONCE A DAY, NOTES: UNSURE TAKING GLUCOSAMINE CHONDROITIN COMPLX - TABLET 1 TAB ORALLY BID, NOTES: UNSURE NOT-TAKING SEROQUEL 25 MG TABLET 1 TABLET ORALLY DAILY, NOTES: UNSURE NOT-TAKING VALIUM 10 MG TABLET 1 ORALLY 1 TAB 1HR PRE PROC. MDD1, NOTES: UNSURE NOT-TAKING OXYCODONE HCL 5 MG TABLET 2 ORALLY 2 TAB 1HR PRE PROC MDD2, NOTES: UNSURE NOT-TAKING GABAPENTIN 300 MG CAPSULE 1 CAPSULE ORALLY THREE TIMES A DAY, NOTES: UNSURE NOT-TAKING METHYLPREDNISOLONE 4 MG KIT ORALLY , NOTES: 11/25 7AM NOT-TAKING OXYCODONE-ACETAMINOPHEN 5-325 MG TABLET 1-2 TABLETS NEEDED ORALLY DIRECTED MDD 8TABLETS NOT-TAKING CLONIDINE HCL 0.1 MG TABLET DIRECTED ORALLY Q8H IF NEEDED FOR WITHDRAWAL SYMPTOMS MAX 3 PER DAY, NOTES: MADE HIM SICK/ DID NOT WORK NOT-TAKING AMLODIPINE 10 MG TABLET ORAL NOT-TAKING LISINOPRIL 10 10 MG TABLET DIRECTED ORAL NOT-TAKING AMLODIPINE 10 MG TABLET ORAL NOT-TAKING HYDROCHLOROTHIAZIDE 25 25 MG TABLET ORAL NOT-TAKING ALPRAZOLAM 1 MG TABLET 1 TABLET ORALLY TWICE A DAY NOT-TAKING ESZOPICLONE 3 MG TABLET 1 TABLET IMMEDIATELY BEFORE BEDTIME ORALLY ONCE A DAY NOT-TAKING CIPRO 500 MG TABLET 1 TABLET ORALLY TWICE A DAY NOT-TAKING FLEXERIL 10 MG 30 10 MG TABLETS ONE TABLET ORALLY EVERY 8 HOURS PRN PAIN MEDICATION LIST REVIEWED AND RECONCILED WITH THE PATIENT PAST MEDICAL HISTORY BIPOLAR HYPERTENSION DIABETES MALLITUS DEPRESSION BPH ALLERGIES PENICILLIN (FOR ALLERGIES USE ONLY): HIVES: ALLERGY HALDOL: MUSCLE SPASMS, HALLUCINATIONS: ALLERGY AMBIEN: HALLUCINATIONS: SIDE EFFECTS SOCIAL HISTORY GENERAL: PAIN CLINIC PFS, CLERGY, PUBLIC HEALTH REFERRALS CLERGY REFERRAL NEEDED?NO WAS THE PROVIDER NOTIFIED OF ANY PERTINENT INFO?NO PFS REFERRAL NEEDED?NO PUBLIC HEALTH REFERRAL NEEDED?NO PATIENT: ____. REVIEW OF SYSTEMS CONSTITUTIONAL: ANY CHANGE IN YOUR MEDICAL CONDITION? NO . CHILLS NO . FEVER NO . INFECTION: DO YOU HAVE NEW INFECTIONS? NO . DO YOU HAVE HISTORY OF MRSA? NO . MUSCULOSKELETAL: ANY NEW PATTERNS OF PAIN OR NUMBNESS? YES, BACK AND HIPS SHALLOW PAIN IF LYING DOWN TOO LONG . GASTROENTEROLOGY: ANY NEW CHANGE IN BOWEL CONTROL? NO . GENITOURINARY: ANY NEW CHANGE IN BLADDER CONTROL? NO . IS THERE A CHANCE YOU COULD BE ? NO . HEMATOLOGY/LYMPH: DO YOU TAKE ANY BLOOD THINNERS? (FOR EXAMPLE- COUMADIN, PLAVIX, AGGRENOX, PLATEL, PRADAXA, OR XARELTO) NO . WHEN WAS YOUR LAST DOSE? DATE: TIME: . NEUROLOGY: HAVE YOU FALLEN IN THE PAST 6 MONTHS? NO . ANY NEW EXTREMITY NUMBNESS OR WEAKNESS? NO . CARDIOLOGY: DO YOU HAVE A PACEMAKER OR DEFIBRILLATOR? NO . RESPIRATORY: HAVE YOU BEEN SICK IN THE PAST WEEK? NO . FEVER NO . FLU LIKE SYMPTOMS? NO . COUGH NO . INTEGUMENTARY: DO YOU HAVE ANY RASHES OR OPEN SORES? NO . ALLERGIC/IMMUNO: ARE YOU ALLERGIC TO SHELLFISH OR IV DYE? NO . ANY NEW ALLERGIES? NO . PSYCHIATRIC: DO YOU HAVE THOUGHTS OF HURTING YOURSELF OR SOMEONE ELSE? NO . ARE YOU ABUSED, NEGLECTED, OR IN AN UNSAFE ENVIRONMENT? NO . ENDOCRINOLOGY: ARE YOU DIABETIC? YES . OTHER: DO YOU NEED ANY PRESCRIPTIONS? NO . IF YES, PLEASE LIST: ____ . ANY NEW PROBLEMS WITH YOUR MEDICATIONS? NO . WHEN DID YOU LAST EAT? 05-19-16 PM . WHEN DID YOU LAST DRINK? 05-20-16 0500 . WHAT DID YOU LAST DRINK? COFFEE . NAME OF PERSON DRIVING YOU HOME? MOM . DO YOU HAVE ANY OTHER QUESTIONS OR CONCERNS NO . REVIEWED BY: PROVIDER: . VITAL SIGNS WT 232 LBS, HT 70 IN, BMI 33.28 INDEX, BP 140/80 MM HG, HR 72 /MIN, RR 18 /MIN, TEMP 98.3 F, OXYGEN SAT % 95%, NA INITIALS [id number], REVIEWED BY: CM. ASSESSMENTS SPONDYLOSIS WITHOUT MYELOPATHY OR RADICULOPATHY, LUMBAR REGION - M47.816 (PRIMARY) SPONDYLOSIS WITHOUT MYELOPATHY OR RADICULOPATHY, LUMBOSACRAL REGION - M47.817 PROCEDURES PN LUMBAR FACET BLOCK THERAPEUTIC PRE PROCEDURE DIAGNOSIS LUMBAR SPONDYLOSIS, :, LUMBOSACRAL SPONDYLOSIS POST PROCEDURE DIAGNOSIS LUMBAR SPONDYLOSIS, LUMBOSACRAL SPONDYLOSIS PROCEDURE BILATERAL L4-L5 AND BILATERAL L5-S1 FACET THERAPEUTIC BLOCK SURGEON DR. KATRIN BERRY TRUCK CHAUFFEUR NONE ANESTHESIA LOCAL PRE PROCEDURE NOTE THE PATIENT HAS A HISTORY OF CHRONIC LOW BACK PAIN. I EVALUATE THE PATIENT AND REVIEWED THE CHART. I WENT OVER THE RISKS, ALTERNATIVES, AND BENEFITS ASSOCIATED WITH THIS PROCEDURE. THE PATIENT WOULD LIKE TO PROCEED AND GIVE CONSENT TO PERFORMED THE PROCEDURE. THE PATIENT DENIES UNEXPLAINABLE WEIGHT LOSS, FEVER, CHILLS, OR NEW CHANGES IN URINARY OR BOWEL CONTROL DESCRIPTION OF PROCEDURE THE PATIENT WAS BROUGHT TO THE PROCEDURE ROOM AND PLACED IN THE PRONE POSITION. THE LUMBOSACRAL AREA WAS CLEANED WITH CHLORAPREP SOLUTION AND DRAPED ASEPTICALLY. THE PROCEDURE WAS DONE UNDER STERILE CONDITIONS. I CHECKED LATERALITY AND THE LEVEL WHERE THE PROCEDURE WAS GOING TO BE PERFORMED WITH THE PATIENT AND THE SUPPORTING STAFF AT THE MOMENT OF THE TIME OUT IN THE PROCEDURE ROOM. UNDER FLUOROSCOPIC GUIDANCE, THE TARGET POINT WAS SELECTED AT THE RIGHT AND LEFT L4-L5 AND RIGHT AND LEFT L5-S1 FACET JOINT. TARGET POINT WAS SELECTED AFTER LATERAL ROTATION AND TILT OF THE MAGNIFIER OF THE C-ARM. LIDOCAINE 0.5% WAS USED TO NUMB THE SKIN AND THE SUBCUTANEOUS TISSUE BELOW IT. SPINAL NEEDLES, 22-GAUGE, WERE ADVANCED UNDER FLUOROSCOPIC GUIDANCE AND FOLLOWING PATIENT FEEDBACK UNTIL THE TARGETS WERE TOUCHED. THE POSITION OF THE NEEDLES WAS VERIFIED WITH AP AND LATERAL VIEWS. AFTER PROPER POSITION OF THE NEEDLES WAS ACHIEVED, ISOVUE-M DYE 30% 0.1 ML WAS INJECTED SHOWING ADEQUATE SPREAD OF THE DYE. THEN A SOLUTION OF 1.9 ML OF BUPIVACAINE 0.125% OF KENALOG 10 MG WAS INJECTED AT EACH SITE. THERE WAS NO EVIDENCE OF BLOOD, PARESTHESIA OR CEREBROSPINAL FLUID DURING THE PROCEDURE. THE PATIENT WAS SENT TO THE RECOVERY ROOM. THE PATIENT WAS MOVING THE EXTREMITIES AND DOING WELL. THERE WAS NO COMPLICATION DURING THE PROCEDURE. FLUOROSCOPY TIME WAS 18 SECONDS POST PROCEDURE NOTE THE PATIENT WILL BE SEEN IN A FOLLOW UP IN THE NEXT FEW WEEKS. INSTRUCTIONS WERE GIVEN, QUESTIONS WERE ANSWERED, AND THE PATIENT EXPRESSED UNDERSTANDING AND AGREES WITH THE PLAN. I, MICH SPENCE, DOCUMENTED THE ABOVE INFORMATION ACTING A SCRIBE FOR DR. BERRY. I HAVE REVIEWED THE ABOVE DOCUMENT, WRITTEN BY MICH SPENCE SCRIBE AND I VERIFY THAT IT IS ACCURATE. DIAGNOSTIC IMAGING [facility] FACET BLOCK (PAIN)[id number] PROCEDURE CODES 09987 INJ PARAVERT F JNT L/S 1 LEV 75954 INJ PARAVERT F JNT L/S 2 LEV 6045F RADXPS IN END [id number] PXD DISPOSITION & COMMUNICATION FOLLOW UP 3 WEEKS ELECTRONICALLY SIGNED BY KATRIN BERRY MD ON 05/31/2016 AT 08:34 PM EDT DISCLAIMER : THIS IS A VISIT SUMMARY EXTRACTED FROM THE [employer] CHART. IT IS NOT A COPY OF THE [employer] PROGRESS NOTE. MTDD
== END ==
LOC: M PAIN 11:40
PROVIDERS: ATTEND Anesthesiology
DX: G89.29 Other chronic pain (principal); M47.816 Spondylosis without myelopathy or radiculopathy, lumbar region; M47.817 Spondylosis without myelopathy or radiculopathy, lumbosacral region; M54.5 Low back pain; Z79.84 Long term (current) use of oral hypoglycemic drugs; Z79.899 Other long term (current) drug therapy; Z88.0 Allergy status to penicillin; Z88.8 Allergy status to other drugs, medicaments and biological substances; I10 Essential (primary) hypertension; E11.9 Type 2 diabetes mellitus without complications; F32.9 Major depressive disorder, single episode, unspecified
CPT/HCPCS: 64493; 64494; J3301; Q9967

== ENCOUNTER → 2016-06-10 | Outpatient (CLI) | payer MEDICARE, MEDICAID ==
[~2016-06-10] MED LIST changes: -BUPIVACAINE HCL 0.25% 30 ML VIAL As Ordered ONE; -ISOVUE-M 300 61% 15ML VIAL (Q9967) As Ordered ONE; -LIDOCAINE 1% SDV INJ 30 ML VIAL As Ordered ONE; -TRIAMCINOLONE ACETONIDE SUSP 40 MG/ML VIAL (J3301) As Ordered ONE; -diazePAM 5 MG TAB As Ordered ONE
--- NOTE | 2016-06-21 02:19 | ECWPNPC ---
PATIENT NAME: TROY ZARAGOZA : 1960 GENDER: MALE VISIT DATE: 06/10/2016 DISCHARGE DATE: 06/10/16 1206 VISIT LOCKED DATE TIME: PHYSICIAN: BEN LOPEZ RESOURCE: BEN LOPEZ REASON FOR APPOINTMENT 1. BACK HISTORY OF PRESENT ILLNESS HISTORY OF PRESENT ILLNESS: HERE FOR POST PROCEDURE F/U.HAD BILATERAL L5/S1 THERAPEUTIC FACET BLOCK ON 05-20-16.REPORTS >50% IMPROVEEMENT IN LOW BACK PAIN THAT CONTINUES TODAY.DISCUSSED GANGLION IMPAR BLOCK.DR. BERRY HAD SUGGESTED THIS FOR LOW SACRAL/TESTICULAR PAIN.WE DISCUSSED POTENTIAL RISKS ASSOCIATED WITH THIS BLOCK TO INCLUDE PERFORATION OF RECTUM.PATIENT WAS CONCERNED ABOUT POSSIBILITY OF ERECTILE DYSFUNCTION AND I ASKED DR. BERRY ABOUT THIS CONCERN.DR. BERRY DIDNT FEEL THAT THIS WAS A LIKELY SCENARIO OR COMPLICATION.RATING PELVIC AND SACRAL PAIN 4/10 VAS. FALL RISK SCREENING: SCREENING :NO FALLS IN THE PAST YEAR CURRENT MEDICATIONS TAKING METFORMIN HCL 500 MG TABLET 1 TABLET WITH MEALS ORALLY TWICE A DAY TAKING ATORVASTATIN CALCIUM 10 MG TABLET 1 TABLET ORALLY ONCE A DAY TAKING FLOMAX 0.4 MG CAPSULE 2 CAPSULE 30 MINUTES AFTER THE SAME MEAL EACH DAY ORALLY ONCE A DAY TAKING LAMOTRIGINE 100 MG TABLET 1 TAB ORALLY TWICE A DAY TAKING LISINOPRIL 20 MG TABLET 1 TABLET ORALLY ONCE A DAY TAKING TIZANIDINE HCL 4 MG TABLET 1 TABLET NEEDED ORALLY EVERY 8 HRS TAKING CYMBALTA 30 MG CAPSULE DELAYED RELEASE PARTICLES 1 CAPSULE ORALLY ONCE A DAY TAKING GLUCOSAMINE CHONDROITIN COMPLX - TABLET 1 TAB ORALLY BID NOT-TAKING SEROQUEL 25 MG TABLET 1 TABLET ORALLY DAILY, NOTES: UNSURE NOT-TAKING VALIUM 10 MG TABLET 1 ORALLY 1 TAB 1HR PRE PROC. MDD1, NOTES: UNSURE NOT-TAKING OXYCODONE HCL 5 MG TABLET 2 ORALLY 2 TAB 1HR PRE PROC MDD2, NOTES: UNSURE NOT-TAKING GABAPENTIN 300 MG CAPSULE 1 CAPSULE ORALLY THREE TIMES A DAY, NOTES: UNSURE NOT-TAKING METHYLPREDNISOLONE 4 MG KIT ORALLY , NOTES: 11/25 7AM NOT-TAKING OXYCODONE-ACETAMINOPHEN 5-325 MG TABLET 1-2 TABLETS NEEDED ORALLY DIRECTED MDD 8TABLETS NOT-TAKING CLONIDINE HCL 0.1 MG TABLET DIRECTED ORALLY Q8H IF NEEDED FOR WITHDRAWAL SYMPTOMS MAX 3 PER DAY, NOTES: MADE HIM SICK/ DID NOT WORK NOT-TAKING AMLODIPINE 10 MG TABLET ORAL NOT-TAKING LISINOPRIL 10 10 MG TABLET DIRECTED ORAL NOT-TAKING AMLODIPINE 10 MG TABLET ORAL NOT-TAKING HYDROCHLOROTHIAZIDE 25 25 MG TABLET ORAL NOT-TAKING ALPRAZOLAM 1 MG TABLET 1 TABLET ORALLY TWICE A DAY NOT-TAKING ESZOPICLONE 3 MG TABLET 1 TABLET IMMEDIATELY BEFORE BEDTIME ORALLY ONCE A DAY NOT-TAKING CIPRO 500 MG TABLET 1 TABLET ORALLY TWICE A DAY NOT-TAKING FLEXERIL 10 MG 30 10 MG TABLETS ONE TABLET ORALLY EVERY 8 HOURS PRN PAIN MEDICATION LIST REVIEWED AND RECONCILED WITH THE PATIENT PAST MEDICAL HISTORY BIPOLAR HYPERTENSION DIABETES MALLITUS DEPRESSION BPH ALLERGIES PENICILLIN (FOR ALLERGIES USE ONLY): HIVES: ALLERGY HALDOL: MUSCLE SPASMS, HALLUCINATIONS: ALLERGY AMBIEN: HALLUCINATIONS: SIDE EFFECTS SOCIAL HISTORY GENERAL: TOBACCO USE ARE YOU A:CURRENT SMOKER HOW MANY CIGARETTES A DAY DO YOU SMOKE?31 OR MORE HOW SOON AFTER YOU WAKE UP DO YOU SMOKE YOUR FIRST CIGARETTE?WITHIN 5 MIN HOW OFTEN DO YOU SMOKE CIGARETTES?EVERY DAY PATIENT COUNSELED ON THE DANGERS OF TOBACCO USE AND URGED TO QUIT:06/10/2016 ARE YOU INTERESTED IN QUITTING?NOT READY TO QUIT COUNSELED THE PATIENT ON SMOKING EFFECTS, EDUCATION [id number]/28/2017 PAIN CLINIC PFS, CLERGY, PUBLIC HEALTH REFERRALS CLERGY REFERRAL NEEDED?NO WAS THE PROVIDER NOTIFIED OF ANY PERTINENT INFO?NO PFS REFERRAL NEEDED?NO PUBLIC HEALTH REFERRAL NEEDED?NO PATIENT: ____. REVIEW OF SYSTEMS CONSTITUTIONAL: ANY CHANGE IN YOUR MEDICAL CONDITION? NO . CHILLS NO . FEVER NO . INFECTION: DO YOU HAVE NEW INFECTIONS? NO . DO YOU HAVE HISTORY OF MRSA? NO . MUSCULOSKELETAL: ANY NEW PATTERNS OF PAIN OR NUMBNESS? NO . GASTROENTEROLOGY: ANY NEW CHANGE IN BOWEL CONTROL? NO . GENITOURINARY: ANY NEW CHANGE IN BLADDER CONTROL? NO . IS THERE A CHANCE YOU COULD BE ? NO . HEMATOLOGY/LYMPH: DO YOU TAKE ANY BLOOD THINNERS? (FOR EXAMPLE- COUMADIN, PLAVIX, AGGRENOX, PLATEL, PRADAXA, OR XARELTO) NO . WHEN WAS YOUR LAST DOSE? DATE: TIME: . NEUROLOGY: HAVE YOU FALLEN IN THE PAST 6 MONTHS? NO . ANY NEW EXTREMITY NUMBNESS OR WEAKNESS? NO . CARDIOLOGY: DO YOU HAVE A PACEMAKER OR DEFIBRILLATOR? NO . RESPIRATORY: HAVE YOU BEEN SICK IN THE PAST WEEK? NO . FEVER NO . FLU LIKE SYMPTOMS? NO . COUGH NO . INTEGUMENTARY: DO YOU HAVE ANY RASHES OR OPEN SORES? NO . ALLERGIC/IMMUNO: ARE YOU ALLERGIC TO SHELLFISH OR IV DYE? NO . ANY NEW ALLERGIES? NO . PSYCHIATRIC: DO YOU HAVE THOUGHTS OF HURTING YOURSELF OR SOMEONE ELSE? NO . ARE YOU ABUSED, NEGLECTED, OR IN AN UNSAFE ENVIRONMENT? NO . ENDOCRINOLOGY: ARE YOU DIABETIC? YES . OTHER: DO YOU NEED ANY PRESCRIPTIONS? NO . IF YES, PLEASE LIST: ____ . ANY NEW PROBLEMS WITH YOUR MEDICATIONS? NO . WHEN DID YOU LAST EAT? ____ . WHEN DID YOU LAST DRINK? ____ . WHAT DID YOU LAST DRINK? ____ . NAME OF PERSON DRIVING YOU HOME? ____ . DO YOU HAVE ANY OTHER QUESTIONS OR CONCERNS NO . REVIEWED BY: PROVIDER: BEN COTTON . VITAL SIGNS WT 222.4 LBS, HT 70 IN, BMI 31.91 INDEX, BP 147/85 MM HG, HR 69 /MIN, RR 18 /MIN, TEMP 97.6 F, OXYGEN SAT % 94%, NA INITIALS TL 1117, REVIEWED BY: AD. EXAMINATION LUMBAR SPINE/LOWER BACK: LOWER BACK:THERE IS TENDERNESS AT LOWER BACK AND THE PARA SPINAL MUSCLE GROUP. STRAIGHT LEG RAISING TEST:POSITIVE AT 45 DEGREES ON, THE LEFT.NEGATIVE ON THE RIGHT.. MOTOR SYSTEM:5/5 BLE. SENSORY EXAM:NORMAL. REFLEXES:2/4 AND SYMMETRIC BLE. DIAGNOSTIC DATA-MRI L/S SPINE-09/23/[id number] EXT-2015 REVIEWED. ASSESSMENTS RECTAL PAIN - K62.89 (PRIMARY) SPONDYLOSIS WITHOUT MYELOPATHY OR RADICULOPATHY, LUMBAR REGION - M47.816 (PRIMARY) TREATMENT OTHERS NOTES: I WILL REQUEST A GANGLION IMPAIR BLOCK. PROCEDURE CODES FA211 ESTABILISHED PATIENT [facility] CHARGE G8730 PAIN ASSESS POS TOOL F/U PLAN DOC G8427 DOC MEDS VERIFIED W/PT OR RE DISPOSITION & COMMUNICATION FOLLOW UP 2WK POST PROCEDURE (REASON: I WILL REQUEST A GANGLION IMPAIR BLOCK. ) ELECTRONICALLY SIGNED BY YURY FALL ON 06/20/2016 AT 01:39 PM EDT DISCLAIMER : THIS IS A VISIT SUMMARY EXTRACTED FROM THE [employer] CHART. IT IS NOT A COPY OF THE [employer] PROGRESS NOTE. MTDD
== END ==
LOC: M PAIN 11:00
PROVIDERS: ATTEND Nurse Practitioner Family
DX: K62.89 Other specified diseases of anus and rectum (principal); M47.816 Spondylosis without myelopathy or radiculopathy, lumbar region; Z79.899 Other long term (current) drug therapy; F17.210 Nicotine dependence, cigarettes, uncomplicated; I10 Essential (primary) hypertension; E11.9 Type 2 diabetes mellitus without complications; F32.9 Major depressive disorder, single episode, unspecified; Z88.0 Allergy status to penicillin; Z88.8 Allergy status to other drugs, medicaments and biological substances

== ENCOUNTER → 2016-06-21 | Outpatient (CLI) | payer MEDICARE, MEDICAID ==
[~2016-06-21] MED LIST changes: +BUPIVACAINE HCL 0.25% 30 ML VIAL As Ordered ONE; +ISOVUE-M 300 61% 15ML VIAL (Q9967) As Ordered ONE; +LIDOCAINE 1% SDV INJ 30 ML VIAL As Ordered ONE; +TRIAMCINOLONE ACETONIDE SUSP 40 MG/ML VIAL (J3301) As Ordered ONE; +diazePAM 5 MG TAB As Ordered ONE
--- NOTE | 2016-06-21 16:09 | REP ---
Partial sacrum and coccyx series: 15 views: History: Injection procedure for pain. 25 seconds of fluoroscopy time is reported. Findings: A sequence of 15 fluoroscopically obtained intraprocedural spot radiographs of the sacrum and coccyx document needle position and contrast injection associated with para coccygeal injection procedure. Signed by Pineda Griggs MD 06/21/2016 04:41 P
--- NOTE | 2016-07-05 01:08 | ECWPNPC ---
PATIENT NAME: TROY ZARAGOZA : 1960 GENDER: MALE VISIT DATE: 06/21/2016 DISCHARGE DATE: 06/21/16 1325 VISIT LOCKED DATE TIME: PHYSICIAN: KATRIN BERRY RESOURCE: KATRIN BERRY REASON FOR APPOINTMENT 1. GANGLION IMPAIR BLOCK HISTORY OF PRESENT ILLNESS HISTORY OF PRESENT ILLNESS: PAIN THE PATIENT DESCRIBES THE PAIN... FALL RISK SCREENING: SCREENING :NO FALLS IN THE PAST YEAR CURRENT MEDICATIONS TAKING METFORMIN HCL 500 MG TABLET 1 TABLET WITH MEALS ORALLY TWICE A DAY, NOTES: 06/20/16 1600 TAKING ATORVASTATIN CALCIUM 10 MG TABLET 1 TABLET ORALLY ONCE A DAY, NOTES: UNSURE TAKING FLOMAX 0.4 MG CAPSULE 1 CAPSULE 30 MINUTES AFTER THE SAME MEAL EACH DAY ORALLY TWICE A DAY, NOTES: 06/21/16 0630 TAKING LAMOTRIGINE 100 MG TABLET 1 TAB ORALLY TWICE A DAY, NOTES: 06/21/16629 TAKING LISINOPRIL 20 MG TABLET 1 TABLET ORALLY ONCE A DAY, NOTES: UNSURE TAKING TIZANIDINE HCL 4 MG TABLET 1 TABLET NEEDED ORALLY EVERY 8 HRS, NOTES: UNSURE TAKING CYMBALTA 30 MG CAPSULE DELAYED RELEASE PARTICLES 1 CAPSULE ORALLY ONCE A DAY, NOTES: UNSURE NOT-TAKING GLUCOSAMINE CHONDROITIN COMPLX - TABLET 1 TAB ORALLY BID NOT-TAKING SEROQUEL 25 MG TABLET 1 TABLET ORALLY DAILY, NOTES: UNSURE NOT-TAKING VALIUM 10 MG TABLET 1 ORALLY 1 TAB 1HR PRE PROC. MDD1, NOTES: UNSURE NOT-TAKING OXYCODONE HCL 5 MG TABLET 2 ORALLY 2 TAB 1HR PRE PROC MDD2, NOTES: UNSURE NOT-TAKING GABAPENTIN 300 MG CAPSULE 1 CAPSULE ORALLY THREE TIMES A DAY, NOTES: UNSURE NOT-TAKING METHYLPREDNISOLONE 4 MG KIT ORALLY , NOTES: 11/25 7AM NOT-TAKING OXYCODONE-ACETAMINOPHEN 5-325 MG TABLET 1-2 TABLETS NEEDED ORALLY DIRECTED MDD 8TABLETS NOT-TAKING CLONIDINE HCL 0.1 MG TABLET DIRECTED ORALLY Q8H IF NEEDED FOR WITHDRAWAL SYMPTOMS MAX 3 PER DAY, NOTES: MADE HIM SICK/ DID NOT WORK NOT-TAKING AMLODIPINE 10 MG TABLET ORAL NOT-TAKING LISINOPRIL 10 10 MG TABLET DIRECTED ORAL NOT-TAKING AMLODIPINE 10 MG TABLET ORAL NOT-TAKING HYDROCHLOROTHIAZIDE 25 25 MG TABLET ORAL NOT-TAKING ALPRAZOLAM 1 MG TABLET 1 TABLET ORALLY TWICE A DAY NOT-TAKING ESZOPICLONE 3 MG TABLET 1 TABLET IMMEDIATELY BEFORE BEDTIME ORALLY ONCE A DAY NOT-TAKING CIPRO 500 MG TABLET 1 TABLET ORALLY TWICE A DAY NOT-TAKING FLEXERIL 10 MG 30 10 MG TABLETS ONE TABLET ORALLY EVERY 8 HOURS PRN PAIN MEDICATION LIST REVIEWED AND RECONCILED WITH THE PATIENT PAST MEDICAL HISTORY BIPOLAR HYPERTENSION DIABETES MALLITUS DEPRESSION BPH ALLERGIES PENICILLIN (FOR ALLERGIES USE ONLY): HIVES: ALLERGY HALDOL: MUSCLE SPASMS, HALLUCINATIONS: ALLERGY AMBIEN: HALLUCINATIONS: SIDE EFFECTS SURGICAL HISTORY KNEE REPLACEMENT LITHOTRIPSY 2006 CARTILEGE REMOVED FROM BOTH KNEES C5-C6 "HALF A DISC REMOVED" SOCIAL HISTORY GENERAL: TOBACCO USE ARE YOU A:CURRENT SMOKER HOW MANY CIGARETTES A DAY DO YOU SMOKE?31 OR MORE HOW SOON AFTER YOU WAKE UP DO YOU SMOKE YOUR FIRST CIGARETTE?WITHIN 5 MIN HOW OFTEN DO YOU SMOKE CIGARETTES?EVERY DAY PATIENT COUNSELED ON THE DANGERS OF TOBACCO USE AND URGED TO QUIT:06/10/2016 ARE YOU INTERESTED IN QUITTING?NOT READY TO QUIT COUNSELED THE PATIENT ON SMOKING EFFECTS, EDUCATION [id number]/28/2017 PAIN CLINIC PFS, CLERGY, PUBLIC HEALTH REFERRALS PFS REFERRAL NEEDED? NO , CLERGY REFERRAL NEEDED? NO , PUBLIC HEALTH REFERRAL NEEDED? NO , WAS THE PROVIDER NOTIFIED OF ANY PERTINENT INFO? NO . PATIENT: ____. HOSPITALIZATION/MAJOR DIAGNOSTIC PROCEDURE SURGERY RELATED PSYCH ADMISSION - BIPOLAR REVIEW OF SYSTEMS CONSTITUTIONAL: ANY CHANGE IN YOUR MEDICAL CONDITION? NO . CHILLS NO . FEVER NO . INFECTION: DO YOU HAVE NEW INFECTIONS? NO . DO YOU HAVE HISTORY OF MRSA? NO . MUSCULOSKELETAL: ANY NEW PATTERNS OF PAIN OR NUMBNESS? NO . GASTROENTEROLOGY: ANY NEW CHANGE IN BOWEL CONTROL? NO . GENITOURINARY: ANY NEW CHANGE IN BLADDER CONTROL? NO . IS THERE A CHANCE YOU COULD BE ? NO . HEMATOLOGY/LYMPH: DO YOU TAKE ANY BLOOD THINNERS? (FOR EXAMPLE- COUMADIN, PLAVIX, AGGRENOX, PLATEL, PRADAXA, OR XARELTO) NO . WHEN WAS YOUR LAST DOSE? DATE: TIME: . NEUROLOGY: HAVE YOU FALLEN IN THE PAST 6 MONTHS? NO . ANY NEW EXTREMITY NUMBNESS OR WEAKNESS? NO . CARDIOLOGY: DO YOU HAVE A PACEMAKER OR DEFIBRILLATOR? NO . RESPIRATORY: HAVE YOU BEEN SICK IN THE PAST WEEK? NO . FEVER NO . FLU LIKE SYMPTOMS? NO . COUGH NO . INTEGUMENTARY: DO YOU HAVE ANY RASHES OR OPEN SORES? NO . ALLERGIC/IMMUNO: ARE YOU ALLERGIC TO SHELLFISH OR IV DYE? NO . ANY NEW ALLERGIES? NO . PSYCHIATRIC: DO YOU HAVE THOUGHTS OF HURTING YOURSELF OR SOMEONE ELSE? NO . ARE YOU ABUSED, NEGLECTED, OR IN AN UNSAFE ENVIRONMENT? NO . ENDOCRINOLOGY: ARE YOU DIABETIC? YES . OTHER: DO YOU NEED ANY PRESCRIPTIONS? NO . IF YES, PLEASE LIST: ____ . ANY NEW PROBLEMS WITH YOUR MEDICATIONS? NO . WHEN DID YOU LAST EAT? 1700 . WHEN DID YOU LAST DRINK? 0600 . WHAT DID YOU LAST DRINK? COFFEE . NAME OF PERSON DRIVING YOU HOME? SHILPI ZARAGOZA . DO YOU HAVE ANY OTHER QUESTIONS OR CONCERNS NO . REVIEWED BY: PROVIDER: . VITAL SIGNS WT 222.4 LBS, HT 70 IN, BMI 31.91 INDEX, BP 118/81 MM HG, HR 79 /MIN, RR 18 /MIN, TEMP 97.7 F, OXYGEN SAT % 96%, NA INITIALS TL 1106, REVIEWED BY: LS. ASSESSMENTS PELVIC AND PERINEAL PAIN - R10.2 (PRIMARY) PELVIC NEUROPATHY. PROCEDURES PRE-PROCEDURE DIAGNOSIS: PELVIC PAIN, PELVIC NEUROPATHYPOST-PROCEDURE DIAGNOSIS: PELVIC PAIN, PELVIC NEUROPATHYPROCEDURE: GANGLION IMPAR BLOCK WITH FLUOROSCOPIC GUIDANCESURGEON: ESTEFANÍA SANCHEZTHESIA: LOCALCOMPLICATIONS: NONEPRE-PROCEDURE NOTE: THE PATIENT HAS BEEN SUFFERING OF PELVIC PAIN. WE HAVE USE MEDICATIONS AND OTHER MODALITIES AND THE PAIN HAS PERSISTED. AFTER DISCUSSING ALTERNATIVES WE HAVE AGREED ON DOING A GANGLION IMPAR BLOCK LOOKING FOR LONG LASTING PAIN RELIEF. PROCEDURE NOTE: AFTER CONSENT WAS REVIEWED WITH THE PATIENT WE TOOK THE PATIENT TO THE PROCEDURE ROOM AND PLACED IT IN THE PRONE POSITION. LUMBOSACRAL AREA WAS CLEANED WITH BETHADINE SOLUTION AND DRAPED ASEPTICALLY. PROCEDURE WAS DONE UNDER STERILE CONDITIONS. THE SACRAL AREA WAS IDENTIFIED UNDER FLUOROSCOPY. THEN THE SACROCOCCYGEAL LIGAMENT WAS IDENTIFIED IN AP AND LATERAL VIEWS. THEN USING A 22 G NEEDLE WE ADVANCED THROUGH THE LIGAMENT SLOWLY UNTIL THE ANTERIOR BORDER OF THE LIGAMENT WAS REACHED. THE NEEDLE WAS ADVANCED SLOWLY WITH A LOSS OF RESISTANCE TECHNIQUE AND MULTIPLE LATERAL VIEWS. ISOVIEW DYE 30% 0.25 CC WAS INJECTED SHOWING ADEQUATE SPREAD OF THE DYE. THEN A SOLUTION OF 5 CC OF BUPIVACAINE .125% WITH KENALOG 30 MG WAS INJECTED. THERE WAS NO EVIDENCE OF VISCERAL OR BLADDER PUNCTURE. THERE WAS NO EVIDENCE OF PARESTHESIA OR VASCULAR UPTAKE. THE PATIENT WAS SEND TO THE RECOVERY ROOM. THERE WERE NO COMPLICATIONS. FLUOROSCOPY TIME WAS 25 SECONDS. POST-PROCEDURE NOTE: THE PATIENT WILL BE SEEN IN A FOLLOW UP IN THE NEXT FEW WEEKS. THERE WERE NO COMPLICATIONS. DIAGNOSTIC IMAGING [facility] FLUORO GUIDANCE (PAIN)[id number] PROCEDURE CODES 6045F RADXPS IN END [id number] PXD DISPOSITION & COMMUNICATION FOLLOW UP 3 WEEKS ELECTRONICALLY SIGNED BY KATRIN BERRY MD ON 07/04/2016 AT 06:26 PM EDT DISCLAIMER : THIS IS A VISIT SUMMARY EXTRACTED FROM THE [employer] CHART. IT IS NOT A COPY OF THE [employer] PROGRESS NOTE. TRAVON
== END ==
LOC: M PAIN 11:00
PROVIDERS: ATTEND Anesthesiology
DX: R10.2 Pelvic and perineal pain (principal); F31.9 Bipolar disorder, unspecified; I10 Essential (primary) hypertension; E11.9 Type 2 diabetes mellitus without complications; F17.210 Nicotine dependence, cigarettes, uncomplicated; Z88.0 Allergy status to penicillin; Z88.8 Allergy status to other drugs, medicaments and biological substances; Z79.84 Long term (current) use of oral hypoglycemic drugs; Z79.899 Other long term (current) drug therapy
CPT/HCPCS: 64520; 77003; J3301; Q9967

== ENCOUNTER → 2016-07-07 | Outpatient (CLI) | payer MEDICARE, MEDICAID ==
[~2016-07-07] MED LIST changes: -BUPIVACAINE HCL 0.25% 30 ML VIAL As Ordered ONE; -ISOVUE-M 300 61% 15ML VIAL (Q9967) As Ordered ONE; -LIDOCAINE 1% SDV INJ 30 ML VIAL As Ordered ONE; -TRIAMCINOLONE ACETONIDE SUSP 40 MG/ML VIAL (J3301) As Ordered ONE; -diazePAM 5 MG TAB As Ordered ONE
--- NOTE | 2016-07-30 01:03 | ECWPNPC ---
PATIENT NAME: TROY ZARAGOZA : 1960 GENDER: MALE VISIT DATE: 07/07/2016 DISCHARGE DATE: 07/07/16 1211 VISIT LOCKED DATE TIME: PHYSICIAN: BEN LOPEZ RESOURCE: BEN LOPEZ REASON FOR APPOINTMENT 1. POST PROCEDURE HISTORY OF PRESENT ILLNESS HISTORY OF PRESENT ILLNESS: HERE FOR POST PROCEDURE F/U.HAD GANGLION IMPAR BLOCK ON 06-21-16 AND REPORTING LESS INTENSITY OF GROIN PAIN THAT CONTINUES TODAY.RATING PAIN VAS 3/10.DESCRIBES PAIN INTERMITTENT BURNING AND SHARP.DISCUSSED TREATMENT OPTIONS. FALL RISK SCREENING: SCREENING :NO FALLS IN THE PAST YEAR CURRENT MEDICATIONS TAKING METFORMIN HCL 500 MG TABLET 1 TABLET WITH MEALS ORALLY TWICE A DAY, NOTES: 06/20/16 1600 TAKING ATORVASTATIN CALCIUM 10 MG TABLET 1 TABLET ORALLY ONCE A DAY, NOTES: UNSURE TAKING FLOMAX 0.4 MG CAPSULE 1 CAPSULE 30 MINUTES AFTER THE SAME MEAL EACH DAY ORALLY TWICE A DAY, NOTES: 06/21/16 0630 TAKING LAMOTRIGINE 100 MG TABLET 1 TAB ORALLY TWICE A DAY, NOTES: 06/21/16 0630 TAKING LISINOPRIL 20 MG TABLET 1 TABLET ORALLY ONCE A DAY, NOTES: UNSURE TAKING TIZANIDINE HCL 4 MG TABLET 1 TABLET NEEDED ORALLY EVERY 8 HRS, NOTES: UNSURE TAKING CYMBALTA 30 MG CAPSULE DELAYED RELEASE PARTICLES 1 CAPSULE ORALLY ONCE A DAY, NOTES: UNSURE NOT-TAKING GLUCOSAMINE CHONDROITIN COMPLX - TABLET 1 TAB ORALLY BID NOT-TAKING SEROQUEL 25 MG TABLET 1 TABLET ORALLY DAILY, NOTES: UNSURE NOT-TAKING VALIUM 10 MG TABLET 1 ORALLY 1 TAB 1HR PRE PROC. MDD1, NOTES: UNSURE NOT-TAKING OXYCODONE HCL 5 MG TABLET 2 ORALLY 2 TAB 1HR PRE PROC MDD2, NOTES: UNSURE NOT-TAKING GABAPENTIN 300 MG CAPSULE 1 CAPSULE ORALLY THREE TIMES A DAY, NOTES: UNSURE NOT-TAKING METHYLPREDNISOLONE 4 MG KIT ORALLY , NOTES: 11/25 7AM NOT-TAKING OXYCODONE-ACETAMINOPHEN 5-325 MG TABLET 1-2 TABLETS NEEDED ORALLY DIRECTED MDD 8TABLETS NOT-TAKING CLONIDINE HCL 0.1 MG TABLET DIRECTED ORALLY Q8H IF NEEDED FOR WITHDRAWAL SYMPTOMS MAX 3 PER DAY, NOTES: MADE HIM SICK/ DID NOT WORK NOT-TAKING AMLODIPINE 10 MG TABLET ORAL NOT-TAKING LISINOPRIL 10 10 MG TABLET DIRECTED ORAL NOT-TAKING AMLODIPINE 10 MG TABLET ORAL NOT-TAKING HYDROCHLOROTHIAZIDE 25 25 MG TABLET ORAL NOT-TAKING ALPRAZOLAM 1 MG TABLET 1 TABLET ORALLY TWICE A DAY NOT-TAKING ESZOPICLONE 3 MG TABLET 1 TABLET IMMEDIATELY BEFORE BEDTIME ORALLY ONCE A DAY NOT-TAKING CIPRO 500 MG TABLET 1 TABLET ORALLY TWICE A DAY NOT-TAKING FLEXERIL 10 MG 30 10 MG TABLETS ONE TABLET ORALLY EVERY 8 HOURS PRN PAIN MEDICATION LIST REVIEWED AND RECONCILED WITH THE PATIENT PAST MEDICAL HISTORY BIPOLAR HYPERTENSION DIABETES MALLITUS DEPRESSION BPH ALLERGIES PENICILLIN (FOR ALLERGIES USE ONLY): HIVES: ALLERGY HALDOL: MUSCLE SPASMS, HALLUCINATIONS: ALLERGY AMBIEN: HALLUCINATIONS: SIDE EFFECTS SURGICAL HISTORY KNEE REPLACEMENT LITHOTRIPSY 2006 CARTILEGE REMOVED FROM BOTH KNEES C5-C6 "HALF A DISC REMOVED" HOSPITALIZATION/MAJOR DIAGNOSTIC PROCEDURE SURGERY RELATED PSYCH ADMISSION - BIPOLAR REVIEW OF SYSTEMS CONSTITUTIONAL: ANY CHANGE IN YOUR MEDICAL CONDITION? NO . CHILLS NO . FEVER NO . INFECTION: DO YOU HAVE NEW INFECTIONS? NO . DO YOU HAVE HISTORY OF MRSA? NO . MUSCULOSKELETAL: ANY NEW PATTERNS OF PAIN OR NUMBNESS? NO. PT WEARS SHOES WHICH ARE CUT TO EXPOSE BILAT DIGITS 5 BILAT. PT STATES HE HAS HAMMER TOE, THIS MAKES IT MORE COMFORTABLE. PT STATES HE SEES PALM AND BACK FORGER DR BRAVO FOR THIS. PT STATES HE IS HERE FOR LBP. PT RATES PAIN 3/10 RADIATING TO GROIN. . GASTROENTEROLOGY: ANY NEW CHANGE IN BOWEL CONTROL? NO . GENITOURINARY: ANY NEW CHANGE IN BLADDER CONTROL? NO . IS THERE A CHANCE YOU COULD BE ? NO . HEMATOLOGY/LYMPH: DO YOU TAKE ANY BLOOD THINNERS? (FOR EXAMPLE- COUMADIN, PLAVIX, AGGRENOX, PLATEL, PRADAXA, OR XARELTO) NO . WHEN WAS YOUR LAST DOSE? DATE: TIME: . NEUROLOGY: HAVE YOU FALLEN IN THE PAST 6 MONTHS? NO . ANY NEW EXTREMITY NUMBNESS OR WEAKNESS? NO . CARDIOLOGY: DO YOU HAVE A PACEMAKER OR DEFIBRILLATOR? NO . RESPIRATORY: HAVE YOU BEEN SICK IN THE PAST WEEK? NO . FEVER NO . FLU LIKE SYMPTOMS? NO . COUGH NO . INTEGUMENTARY: DO YOU HAVE ANY RASHES OR OPEN SORES? NO . ALLERGIC/IMMUNO: ARE YOU ALLERGIC TO SHELLFISH OR IV DYE? NO . ANY NEW ALLERGIES? NO . PSYCHIATRIC: DO YOU HAVE THOUGHTS OF HURTING YOURSELF OR SOMEONE ELSE? NO . ARE YOU ABUSED, NEGLECTED, OR IN AN UNSAFE ENVIRONMENT? NO . ENDOCRINOLOGY: ARE YOU DIABETIC? YES. DISCUSSED GOOD FOOT CARE WITH PT, MONITORING NEW CHANGES, MIRROR TO INSPECT PLANTAR OF FEET, GOOD FITTING SHOES. . OTHER: DO YOU NEED ANY PRESCRIPTIONS? NO . IF YES, PLEASE LIST: ____ . ANY NEW PROBLEMS WITH YOUR MEDICATIONS? NO . WHEN DID YOU LAST EAT? ____ . WHEN DID YOU LAST DRINK? ____ . WHAT DID YOU LAST DRINK? ____ . NAME OF PERSON DRIVING YOU HOME? ____ . DO YOU HAVE ANY OTHER QUESTIONS OR CONCERNS NO . REVIEWED BY: PROVIDER: BEN COTTON . VITAL SIGNS WT 222.2 LBS, HT 70 IN, BMI 31.88 INDEX, BP 149/97 MM HG, HR 87 /MIN, RR 18 /MIN, TEMP 98.3 F, OXYGEN SAT % 95%, SAFE IN ENV? (Y/N) Y, NA INITIALS TL 1127, REVIEWED BY: EM. EXAMINATION LUMBAR SPINE/LOWER BACK: LOWER BACK:THERE IS TENDERNESS AT LOWER BACK AND THE PARA SPINAL MUSCLE GROUP. STRAIGHT LEG RAISING TEST:POSITIVE AT 45 DEGREES ON, THE LEFT.NEGATIVE ON THE RIGHT.. MOTOR SYSTEM:5/5 BLE. SENSORY EXAM:NORMAL. REFLEXES:2/4 AND SYMMETRIC BLE. DIAGNOSTIC DATA-MRI L/S SPINE-09/23/[id number] EXT-2016 REVIEWED. ASSESSMENTS RECTAL PAIN - K62.89 (PRIMARY) SPONDYLOSIS WITHOUT MYELOPATHY OR RADICULOPATHY, LUMBAR REGION - M47.816 (PRIMARY) PROCEDURE CODES FA211 ESTABILISHED PATIENT [facility] FACILITY CHARGE G8730 PAIN ASSESS POS TOOL F/U PLAN DOC G8427 DOC MEDS VERIFIED W/PT OR RE DISPOSITION & COMMUNICATION FOLLOW UP 2 MONTHS ELECTRONICALLY SIGNED BY YURY FALL ON 07/29/2016 AT 08:07 PM EDT DISCLAIMER : THIS IS A VISIT SUMMARY EXTRACTED FROM THE [employer] CHART. IT IS NOT A COPY OF THE [employer] PROGRESS NOTE. MTDD
== END ==
LOC: M PAIN 11:00
PROVIDERS: ATTEND Nurse Practitioner Family
DX: K62.89 Other specified diseases of anus and rectum (principal); M47.816 Spondylosis without myelopathy or radiculopathy, lumbar region; Z79.899 Other long term (current) drug therapy; Z88.0 Allergy status to penicillin; Z88.8 Allergy status to other drugs, medicaments and biological substances

== ENCOUNTER → 2018-02-19 | Outpatient (REF) | payer MEDICARE, OTHER ==
[~2018-02-19] MED LIST changes: -COUM2.5T11 PO; +COUM2.5T17 PO; -ESZO1TAB3 PO; +ESZO1TAB6 PO; +FLOM0.4C39 PO; -FLOM5CAP PO; -INVE6TAB2 PO; +INVE6TAB3 PO; +METF500T13 PO; +MILK120011 PO; -MILKSUS PO; -NICO21DI5 TD; +NICO21DI6 TD; +OXYC-141 PO; -OXYC-299 PO; +PERC5TAB12 PO; -PERC5TAB6 PO; -SENO8.6T2 PO; +SENO8.6T5 PO
== END ==
LOC: M LABSMT 14:34
PROVIDERS: ATTEND Urology Pediatric Urology
DX: R10.2 Pelvic and perineal pain (principal); R31.29 Other microscopic hematuria
CPT/HCPCS: 51798; 88108; G0463

== ENCOUNTER → 2018-04-16 | Outpatient (REF) | payer MEDICARE ==
[2018-04-16 18:49] LABS: APPEARANCE, URINE CLEAR (CLEAR); BACTERIA, URINE AUTO NEGATIVE (NEGATIVE); BILIRUBIN, URINE AUTO NEGATIVE (NEGATIVE); BLOOD, URINE BLOOD NEGATIVE (NEGATIVE); COLOR, URINE YELLOW (YELLOW); GLUCOSE, URINE (UA) AUTO 3+ mg/dL (NEGATIVE); KETONE, URINE AUTO NEGATIVE (NEGATIVE); LEUKOCYTE ESTERASE, URINE AUTO NEGATIVE (NEGATIVE); NITRITE, URINE AUTO NEGATIVE (NEGATIVE); PROTEIN, URINE AUTO NEGATIVE (NEGATIVE); RBC, URINE AUTO 0 /HPF (0-3); SPECIFIC GRAVITY URINE AUTO 1.021 (1.002-1.035); SQUAMOUS EPITHELIAL CELL UR AU 0 /HPF (0-6); UROBILINOGEN, URINE AUTO 0.2 mg/dL (0.0-2.0); WBC, URINE AUTO 0 /HPF (0-3)
== END ==
LOC: M SMT 17:36
PROVIDERS: ATTEND Specialist
DX: R31.29 Other microscopic hematuria (principal)
CPT/HCPCS: 52000; 81001; 87086; G0463

== ENCOUNTER → 2018-05-29 | Outpatient (CLI) | payer MEDICARE ==
[~2018-05-29] MED LIST changes: -/HCTZ25TA PO; +HYDR-2541 PO; +HYDR-3644 PO; +TRAZ1TAB6 PO; -TRAZO50TA PO
--- NOTE | 2018-06-13 01:12 | ECWPNPC ---
PATIENT NAME: TROY ZARAGOZA : 1960 GENDER: MALE VISIT DATE: 05/29/2018 DISCHARGE DATE: 05/29/18 1046 VISIT LOCKED DATE TIME: PHYSICIAN: BEN LOPEZ RESOURCE: BEN LOPEZ REASON FOR APPOINTMENT 1. PREV. PT, LUMBAR DDD HISTORY OF PRESENT ILLNESS HISTORY OF PRESENT ILLNESS: 57 Y/O MALE RETURNS TO CLINIC FOR EVALUATION OF CHRONIC GROIN/TESTICLE PAIN.RESPONDED WELL TO GANGLION PARS INJECTION FOR ALMOST 2 YEARS THEN PAIN BEGAN TO SLOWLY RETURN.RATING PAIN VAS 5/10.PAIN IS AGGREVATED BY PROLONGED SITTING.PAIN IS DESCRIBED CONTINUOUS BURNING,SHARP AND STABBING. PAIN THE PATIENT DESCRIBES THE PAIN... FALL RISK SCREENING: SCREENING :NO FALLS REPORTED IN THE LAST YEAR CURRENT MEDICATIONS TAKING METFORMIN HCL 500 MG TABLET 1 TABLET WITH MEALS ORALLY TWICE A DAY, NOTES: 06/20/16 1600 TAKING ATORVASTATIN CALCIUM 10 MG TABLET 1 TABLET ORALLY ONCE A DAY, NOTES: UNSURE TAKING FLOMAX 0.4 MG CAPSULE 1 CAPSULE 30 MINUTES AFTER THE SAME MEAL EACH DAY ORALLY TWICE A DAY, NOTES: 06/21/16 0630 TAKING LAMOTRIGINE 100 MG TABLET 1 TAB ORALLY TWICE A DAY, NOTES: 06/21/16 0630 TAKING LISINOPRIL 20 MG TABLET 1 TABLET ORALLY ONCE A DAY, NOTES: UNSURE TAKING MAGNESIUM OXIDE -MG SUPPLEMENT 400 MG CAPSULE 1 CAPSULE NEEDED ORALLY ONCE A DAY TAKING POTASSIUM CITRATE ER 10 MEQ (1080 MG) TABLET EXTENDED RELEASE 1 TABLET WITH MEALS ORALLY THREE TIMES A DAY TAKING LYRICA 50 MG CAPSULE 1 CAPSULE ORALLY TWICE A DAY TAKING SPIRIVA HANDIHALER 18 MCG CAPSULE 1 CAPSULE INHALATION ONCE A DAY NOT-TAKING TIZANIDINE HCL 4 MG TABLET 1 TABLET NEEDED ORALLY EVERY 8 HRS, NOTES: UNSURE NOT-TAKING CYMBALTA 30 MG CAPSULE DELAYED RELEASE PARTICLES 1 CAPSULE ORALLY ONCE A DAY, NOTES: UNSURE NOT-TAKING ACIDOPHILUS LACTOBACILLUS 1 CAPSULE DIRECTED ORALLY DAILY NOT-TAKING FLOMAX 0.4 MG CAPSULE 2 CAPSULE ORALLY ONCE A DAY NOT-TAKING ACIDOPHILUS LACTOBACILLUS 1 CAPSULE DIRECTED ORALLY DAILY NOT-TAKING MAGNESIUM OXIDE -MG SUPPLEMENT 400 MG CAPSULE 1 CAPSULE NEEDED ORALLY ONCE A DAY NOT-TAKING BACTRIM DS 800-160 MG TABLET 1 TABLET ORALLY TWICE A DAY NOT-TAKING GLUCOSAMINE CHONDROITIN COMPLX - TABLET 1 TAB ORALLY BID NOT-TAKING SEROQUEL 25 MG TABLET 1 TABLET ORALLY DAILY, NOTES: UNSURE NOT-TAKING VALIUM 10 MG TABLET 1 ORALLY 1 TAB 1HR PRE PROC. MDD1, NOTES: UNSURE NOT-TAKING OXYCODONE HCL 5 MG TABLET 2 ORALLY 2 TAB 1HR PRE PROC MDD2, NOTES: UNSURE NOT-TAKING GABAPENTIN 300 MG CAPSULE 1 CAPSULE ORALLY THREE TIMES A DAY, NOTES: UNSURE NOT-TAKING METHYLPREDNISOLONE 4 MG KIT ORALLY , NOTES: 11/25 7AM NOT-TAKING OXYCODONE-ACETAMINOPHEN 5-325 MG TABLET 1-2 TABLETS NEEDED ORALLY DIRECTED MDD 8TABLETS NOT-TAKING CLONIDINE HCL 0.1 MG TABLET DIRECTED ORALLY Q8H IF NEEDED FOR WITHDRAWAL SYMPTOMS MAX 3 PER DAY, NOTES: MADE HIM SICK/ DID NOT WORK NOT-TAKING AMLODIPINE 10 MG TABLET ORAL NOT-TAKING LISINOPRIL 10 10 MG TABLET DIRECTED ORAL NOT-TAKING AMLODIPINE 10 MG TABLET ORAL NOT-TAKING HYDROCHLOROTHIAZIDE 25 25 MG TABLET ORAL NOT-TAKING ALPRAZOLAM 1 MG TABLET 1 TABLET ORALLY TWICE A DAY NOT-TAKING ESZOPICLONE 3 MG TABLET 1 TABLET IMMEDIATELY BEFORE BEDTIME ORALLY ONCE A DAY NOT-TAKING CIPRO 500 MG TABLET 1 TABLET ORALLY TWICE A DAY NOT-TAKING FLEXERIL 10 MG 30 10 MG TABLETS ONE TABLET ORALLY EVERY 8 HOURS PRN PAIN MEDICATION LIST REVIEWED AND RECONCILED WITH THE PATIENT PAST MEDICAL HISTORY BIPOLAR HYPERTENSION DIABETES MALLITUS DEPRESSION BPH ALLERGIES PENICILLIN (FOR ALLERGIES USE ONLY): HIVES - ALLERGY HALDOL: MUSCLE SPASMS, HALLUCINATIONS - ALLERGY AMBIEN: HALLUCINATIONS - SIDE EFFECTS SURGICAL HISTORY KNEE REPLACEMENT LITHOTRIPSY 2006 CARTILEGE REMOVED FROM BOTH KNEES C5-C6 "HALF A DISC REMOVED" CYSTSCOPY 04/2018 FAMILY HISTORY FATHER: ALIVE, DIAGNOSED WITH DIABETES, HYPERTENSION, HEART DISEASE MOTHER: ALIVE SOCIAL HISTORY GENERAL: TOBACCO USE ARE YOU A:CURRENT SMOKER ARE YOU INTERESTED IN QUITTING?NOT READY TO QUIT COUNSELED THE PATIENT ON SMOKING EFFECTS, EDUCATION [id number]/16/2019 HOW MANY CIGARETTES A DAY DO YOU SMOKE?31 OR MORE HOW SOON AFTER YOU WAKE UP DO YOU SMOKE YOUR FIRST CIGARETTE?WITHIN 5 MIN HOW OFTEN DO YOU SMOKE CIGARETTES?EVERY DAY PATIENT COUNSELED ON THE DANGERS OF TOBACCO USE AND URGED TO QUIT:05/29/2018 ALCOHOL SCREENING DID YOU HAVE A DRINK CONTAINING ALCOHOL IN THE PAST YEAR?NO POINTS0 INTERPRETATIONNEGATIVE RECREATIONAL DRUG USE DRUG USE?NO CAFFEINE CAFFEINE USE?YES HOW OFTEN AND HOW MUCH? 3-4 CUPS DAY. COFFEE/SODA SEXUAL HX HAD SEX IN THE LAST 12 MONTHS (VAGINAL, ORAL, OR ANAL)?NO HAVE YOU EVER HAD AN STD?NO CONGREGATION CONGREGATION NO MU-ISM BELIEFS THAT WOULD IMPACT HEALTH CARE. 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 DIET: REGULAR. EXERCISE: NO REGULAR EXERCISE. MARITAL STATUS: SINGLE. PAIN CLINIC PFS, CLERGY, PUBLIC HEALTH REFERRALS HAS THE PATIENT BEEN EDUCATED REGARDING HIS/HER PLAN OF CARE?YES HAS THE PATIENT BEEN EDUCATED REGARDING PAIN, THE RISK FOR PAIN, THE IMPORTANCE OF EFFECTIVE PAIN MANAGEMENT, AND THE PAIN ASSESSMENT PROCESS?YES ADVANCE DIRECTIVE ADVANCE DIRECTIVE DISCUSSED WITH PATIENT:YES PT HAS NO ADVANCED DIRECTIVES, DECLINES INFORMATION OR ASSISTANCE AT THIS TIME REVIEWED WITH PT 05/29/18 1015 LAS. HOSPITALIZATION/MAJOR DIAGNOSTIC PROCEDURE SURGERY RELATED PSYCH ADMISSION - BIPOLAR REVIEW OF SYSTEMS REVIEWED BY: PROVIDER: BEN COTTON . CONSTITUTIONAL: ANY CHANGE IN YOUR MEDICAL CONDITION? NO . CHILLS NO . FEVER NO . INFECTION: DO YOU HAVE NEW INFECTIONS? NO . DO YOU HAVE HISTORY OF MRSA? NO . MUSCULOSKELETAL: ANY NEW PATTERNS OF PAIN OR NUMBNESS? NO . GASTROENTEROLOGY: ANY NEW CHANGE IN BOWEL CONTROL? NO . GENITOURINARY: ANY NEW CHANGE IN BLADDER CONTROL? NO . IS THERE A CHANCE YOU COULD BE ? NO . HEMATOLOGY/LYMPH: DO YOU TAKE ANY BLOOD THINNERS? (FOR EXAMPLE- COUMADIN, PLAVIX, AGGRENOX, PLATEL, PRADAXA, OR XARELTO) NO . WHEN WAS YOUR LAST DOSE? DATE: TIME: . NEUROLOGY: HAVE YOU FALLEN IN THE PAST 12 MONTHS? NO . ANY NEW EXTREMITY NUMBNESS OR WEAKNESS? NO . CARDIOLOGY: DO YOU HAVE A PACEMAKER OR DEFIBRILLATOR? NO . RESPIRATORY: HAVE YOU BEEN SICK IN THE PAST WEEK? NO . FEVER NO . FLU LIKE SYMPTOMS? NO . COUGH NO . INTEGUMENTARY: DO YOU HAVE ANY RASHES OR OPEN SORES? NO . ALLERGIC/IMMUNO: ARE YOU ALLERGIC TO IV DYE? NO . ANY NEW ALLERGIES? NO . PSYCHIATRIC: DO YOU HAVE THOUGHTS OF HURTING YOURSELF OR SOMEONE ELSE? NO . ARE YOU ABUSED, NEGLECTED, OR IN AN UNSAFE ENVIRONMENT? NO . ENDOCRINOLOGY: ARE YOU DIABETIC? YES . OTHER: DO YOU NEED ANY PRESCRIPTIONS? YES . IF YES, PLEASE LIST: ____PT IS REQUESTING SOMETHING FOR PAIN, WOULD PREFER TO AVOID OPIATES. . ANY NEW PROBLEMS WITH YOUR MEDICATIONS? NO . WHEN DID YOU LAST EAT? ____ . WHEN DID YOU LAST DRINK? ____ . WHAT DID YOU LAST DRINK? ____ . NAME OF PERSON DRIVING YOU HOME? ____ . DO YOU HAVE ANY OTHER QUESTIONS OR CONCERNS NO . VITAL SIGNS WT 254 LBS, HT 70 IN, BMI 36.44 INDEX, BP 163/92 MM HG, HR 87 /MIN, RR 20 /MIN, TEMP 96.0 F, OXYGEN SAT % 96%, SAFE IN ENV? (Y/N) YES, NA INITIALS AW 1010, REVIEWED BY: ALEJANDRA. EXAMINATION LUMBAR SPINE/LOWER BACK: LOWER BACK:THERE IS TENDERNESS AT LOWER BACK AND THE PARA SPINAL MUSCLE GROUP. STRAIGHT LEG RAISING TEST:POSITIVE AT 45 DEGREES ON, THE LEFT.NEGATIVE ON THE RIGHT.. MOTOR SYSTEM:5/5 BLE. SENSORY EXAM:NORMAL. REFLEXES:2/4 AND SYMMETRIC BLE. DIAGNOSTIC DATA-MRI L/S SPINE-09/23/1500-[id number] EXT-2016 REVIEWED. GENITOURINARY - MALE: ABDOMEN: TENDERNESS OVER LOWER PELVIS/GROIN.PATIENT DENIES MASS OR SWELLING IN TESTICLES. ASSESSMENTS RECTAL PAIN - K62.89 (PRIMARY) SPONDYLOSIS WITHOUT MYELOPATHY OR RADICULOPATHY, LUMBAR REGION - M47.816 (PRIMARY) TREATMENT RECTAL PAIN NOTES: GANGLION IMPAR BLOCK. PROCEDURE CODES FA211 ESTABILISHED PATIENT [facility] CHARGE DISPOSITION & COMMUNICATION FOLLOW UP POST (REASON: GANGLION IMPAR BLOCK) ELECTRONICALLY SIGNED BY YURY BROOKE ON 06/12/2018 AT 08:40 AM EDT DISCLAIMER : THIS IS A VISIT SUMMARY EXTRACTED FROM THE [employer] CHART. IT IS NOT A COPY OF THE [employer] PROGRESS NOTE. MTDD
== END ==
LOC: M PAIN 09:45
PROVIDERS: ATTEND Nurse Practitioner Family
DX: K62.89 Other specified diseases of anus and rectum (principal); G89.29 Other chronic pain; M47.816 Spondylosis without myelopathy or radiculopathy, lumbar region; E11.9 Type 2 diabetes mellitus without complications; I10 Essential (primary) hypertension; F31.9 Bipolar disorder, unspecified; F17.210 Nicotine dependence, cigarettes, uncomplicated; Z79.84 Long term (current) use of oral hypoglycemic drugs; Z79.899 Other long term (current) drug therapy; Z88.0 Allergy status to penicillin; Z88.8 Allergy status to other drugs, medicaments and biological substances; Z96.659 Presence of unspecified artificial knee joint

== ENCOUNTER → 2018-06-20 | Outpatient (CLI) | payer MEDICARE ==
[~2018-06-20] MED LIST changes: +BUPIVACAINE HCL 0.25% 30 ML VIAL As Ordered ONE; +ISOVUE-M 300 61% 15ML VIAL (Q9967) As Ordered ONE; +LIDOCAINE 1% SDV INJ 30 ML VIAL As Ordered ONE; +TRIAMCINOLONE ACETONIDE SUSP 40 MG/ML VIAL (J3301) As Ordered ONE; +diazePAM 5 MG TAB As Ordered ONE
--- NOTE | 2018-06-20 15:02 | REP ---
Coccyx: Two views. History: Injection procedure for pain. 14 seconds of fluoroscopy time is reported. Findings: A sequence of two last image hold fluoroscopically obtained spot radiographs of the coccyx document needle position and contrast injection associated with injection procedure. Electronically Signed by Pineda Griggs MD 06/20/2018 03:44 P
--- NOTE | 2018-07-07 23:43 | ECWPNPC ---
PATIENT NAME: TROY ZARAGOZA : 1960 GENDER: MALE VISIT DATE: 06/20/2018 DISCHARGE DATE: 06/20/18 1425 VISIT LOCKED DATE TIME: PHYSICIAN: KATRIN BERRY MD RESOURCE: KATRIN BERRY MD REASON FOR APPOINTMENT 1. GANGLION IMPAR BLOCK HISTORY OF PRESENT ILLNESS HISTORY OF PRESENT ILLNESS: PAIN THE PATIENT DESCRIBES THE PAIN... FALL RISK SCREENING: SCREENING :NO FALLS REPORTED IN THE LAST YEAR CURRENT MEDICATIONS TAKING METFORMIN HCL 500 MG TABLET 1 TABLET WITH MEALS ORALLY TWICE A DAY, NOTES: 06/19/18 TAKING ATORVASTATIN CALCIUM 10 MG TABLET 1 TABLET ORALLY ONCE A DAY, NOTES: 06/19/18 TAKING FLOMAX 0.4 MG CAPSULE 1 CAPSULE 30 MINUTES AFTER THE SAME MEAL EACH DAY ORALLY TWICE A DAY, NOTES: 06/19/18 TAKING LAMOTRIGINE 100 MG TABLET 1 TAB ORALLY TWICE A DAY, NOTES: 06/19/18 TAKING LISINOPRIL 20 MG TABLET 1 TABLET ORALLY ONCE A DAY, NOTES: 06/20/18 TAKING MAGNESIUM OXIDE -MG SUPPLEMENT 400 MG CAPSULE 1 CAPSULE NEEDED ORALLY ONCE A DAY, NOTES: 06/19/18 TAKING POTASSIUM CITRATE ER 10 MEQ (1080 MG) TABLET EXTENDED RELEASE 1 TABLET WITH MEALS ORALLY THREE TIMES A DAY, NOTES: 06/19/18 TAKING LYRICA 50 MG CAPSULE 1 CAPSULE ORALLY TWICE A DAY, NOTES: 06/19/18 TAKING SPIRIVA HANDIHALER 18 MCG CAPSULE 1 CAPSULE INHALATION ONCE A DAY, NOTES: 06/19/18 NOT-TAKING TIZANIDINE HCL 4 MG TABLET 1 TABLET NEEDED ORALLY EVERY 8 HRS, NOTES: UNSURE NOT-TAKING CYMBALTA 30 MG CAPSULE DELAYED RELEASE PARTICLES 1 CAPSULE ORALLY ONCE A DAY, NOTES: UNSURE NOT-TAKING ACIDOPHILUS LACTOBACILLUS 1 CAPSULE DIRECTED ORALLY DAILY NOT-TAKING FLOMAX 0.4 MG CAPSULE 2 CAPSULE ORALLY ONCE A DAY NOT-TAKING ACIDOPHILUS LACTOBACILLUS 1 CAPSULE DIRECTED ORALLY DAILY NOT-TAKING MAGNESIUM OXIDE -MG SUPPLEMENT 400 MG CAPSULE 1 CAPSULE NEEDED ORALLY ONCE A DAY NOT-TAKING BACTRIM DS 800-160 MG TABLET 1 TABLET ORALLY TWICE A DAY NOT-TAKING GLUCOSAMINE CHONDROITIN COMPLX - TABLET 1 TAB ORALLY BID NOT-TAKING SEROQUEL 25 MG TABLET 1 TABLET ORALLY DAILY, NOTES: UNSURE NOT-TAKING VALIUM 10 MG TABLET 1 ORALLY 1 TAB 1HR PRE PROC. MDD1, NOTES: UNSURE NOT-TAKING OXYCODONE HCL 5 MG TABLET 2 ORALLY 2 TAB 1HR PRE PROC MDD2, NOTES: UNSURE NOT-TAKING GABAPENTIN 300 MG CAPSULE 1 CAPSULE ORALLY THREE TIMES A DAY, NOTES: UNSURE NOT-TAKING METHYLPREDNISOLONE 4 MG KIT ORALLY , NOTES: 11/25 7AM NOT-TAKING OXYCODONE-ACETAMINOPHEN 5-325 MG TABLET 1-2 TABLETS NEEDED ORALLY DIRECTED MDD 8TABLETS NOT-TAKING CLONIDINE HCL 0.1 MG TABLET DIRECTED ORALLY Q8H IF NEEDED FOR WITHDRAWAL SYMPTOMS MAX 3 PER DAY, NOTES: MADE HIM SICK/ DID NOT WORK NOT-TAKING AMLODIPINE 10 MG TABLET ORAL NOT-TAKING LISINOPRIL 10 10 MG TABLET DIRECTED ORAL NOT-TAKING AMLODIPINE 10 MG TABLET ORAL NOT-TAKING HYDROCHLOROTHIAZIDE 25 25 MG TABLET ORAL NOT-TAKING ALPRAZOLAM 1 MG TABLET 1 TABLET ORALLY TWICE A DAY NOT-TAKING ESZOPICLONE 3 MG TABLET 1 TABLET IMMEDIATELY BEFORE BEDTIME ORALLY ONCE A DAY NOT-TAKING CIPRO 500 MG TABLET 1 TABLET ORALLY TWICE A DAY NOT-TAKING FLEXERIL 10 MG 30 10 MG TABLETS ONE TABLET ORALLY EVERY 8 HOURS PRN PAIN MEDICATION LIST REVIEWED AND RECONCILED WITH THE PATIENT PAST MEDICAL HISTORY BIPOLAR HYPERTENSION DIABETES MALLITUS DEPRESSION BPH ALLERGIES PENICILLIN (FOR ALLERGIES USE ONLY): HIVES - ALLERGY HALDOL: MUSCLE SPASMS, HALLUCINATIONS - ALLERGY AMBIEN: HALLUCINATIONS - SIDE EFFECTS SURGICAL HISTORY KNEE REPLACEMENT LITHOTRIPSY 2006 CARTILEGE REMOVED FROM BOTH KNEES C5-C6 "HALF A DISC REMOVED" CYSTSCOPY 04/2018 FAMILY HISTORY FATHER: ALIVE, DIAGNOSED WITH HEART DISEASE, DIABETES, HYPERTENSION MOTHER: ALIVE SOCIAL HISTORY GENERAL: TOBACCO USE ARE YOU A:CURRENT SMOKER ARE YOU INTERESTED IN QUITTING?NOT READY TO QUIT COUNSELED THE PATIENT ON SMOKING EFFECTS, EDUCATION [id number]/08/2019 HOW MANY CIGARETTES A DAY DO YOU SMOKE?31 OR MORE HOW SOON AFTER YOU WAKE UP DO YOU SMOKE YOUR FIRST CIGARETTE?WITHIN 5 MIN HOW OFTEN DO YOU SMOKE CIGARETTES?EVERY DAY PATIENT COUNSELED ON THE DANGERS OF TOBACCO USE AND URGED TO QUIT:05/29/2018 DIET: REGULAR. LANGUAGE LANGUAGES SPOKEN:MALAWIAN RECREATIONAL DRUG USE DRUG USE?NO EXERCISE: NO REGULAR EXERCISE. PAIN CLINIC PFS, CLERGY, PUBLIC HEALTH REFERRALS HAS THE PATIENT BEEN EDUCATED REGARDING HIS/HER PLAN OF CARE?YES HAS THE PATIENT BEEN EDUCATED REGARDING PAIN, THE RISK FOR PAIN, THE IMPORTANCE OF EFFECTIVE PAIN MANAGEMENT, AND THE PAIN ASSESSMENT PROCESS?YES CAFFEINE CAFFEINE USE?YES HOW OFTEN AND HOW MUCH? 3-4 CUPS DAY. COFFEE/SODA ADVANCE DIRECTIVE ADVANCE DIRECTIVE DISCUSSED WITH PATIENT:YES PT HAS NO ADVANCED DIRECTIVES, DECLINES INFORMATION OR ASSISTANCE AT THIS TIME HINDUISM HINDUISM NO LUTHERAN BELIEFS THAT WOULD IMPACT HEALTH CARE. MARITAL STATUS: SINGLE. 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 SEXUAL HX HAD SEX IN THE LAST 12 MONTHS (VAGINAL, ORAL, OR ANAL)?NO HAVE YOU EVER HAD AN STD?NO REVIEWED WITH PT 05/29/18 1015 LAS. HOSPITALIZATION/MAJOR DIAGNOSTIC PROCEDURE SURGERY RELATED PSYCH ADMISSION - BIPOLAR REVIEW OF SYSTEMS REVIEWED BY: PROVIDER: . CONSTITUTIONAL: ANY CHANGE IN YOUR MEDICAL CONDITION? NO . CHILLS NO . FEVER NO . INFECTION: DO YOU HAVE NEW INFECTIONS? NO . DO YOU HAVE HISTORY OF MRSA? NO . MUSCULOSKELETAL: ANY NEW PATTERNS OF PAIN OR NUMBNESS? NO . GASTROENTEROLOGY: ANY NEW CHANGE IN BOWEL CONTROL? NO . GENITOURINARY: ANY NEW CHANGE IN BLADDER CONTROL? NO . IS THERE A CHANCE YOU COULD BE ? NO . HEMATOLOGY/LYMPH: DO YOU TAKE ANY BLOOD THINNERS? (FOR EXAMPLE- COUMADIN, PLAVIX, AGGRENOX, PLATEL, PRADAXA, OR XARELTO) NO . WHEN WAS YOUR LAST DOSE? DATE: TIME: . NEUROLOGY: HAVE YOU FALLEN IN THE PAST 12 MONTHS? NO . ANY NEW EXTREMITY NUMBNESS OR WEAKNESS? NO . CARDIOLOGY: DO YOU HAVE A PACEMAKER OR DEFIBRILLATOR? NO . RESPIRATORY: HAVE YOU BEEN SICK IN THE PAST WEEK? NO . FEVER NO . FLU LIKE SYMPTOMS? NO . COUGH NO . INTEGUMENTARY: DO YOU HAVE ANY RASHES OR OPEN SORES? NO . ALLERGIC/IMMUNO: ARE YOU ALLERGIC TO IV DYE? NO . ANY NEW ALLERGIES? NO . PSYCHIATRIC: DO YOU HAVE THOUGHTS OF HURTING YOURSELF OR SOMEONE ELSE? NO . ARE YOU ABUSED, NEGLECTED, OR IN AN UNSAFE ENVIRONMENT? NO . ENDOCRINOLOGY: ARE YOU DIABETIC? NO . OTHER: DO YOU NEED ANY PRESCRIPTIONS? NO . IF YES, PLEASE LIST: ____ . ANY NEW PROBLEMS WITH YOUR MEDICATIONS? NO . WHEN DID YOU LAST EAT? 06/19/18 . WHEN DID YOU LAST DRINK? 06/20/18 0500 . WHAT DID YOU LAST DRINK? BLACK COFFEE . NAME OF PERSON DRIVING YOU HOME? SHILPI . DO YOU HAVE ANY OTHER QUESTIONS OR CONCERNS NO . VITAL SIGNS WT 246.6 LBS, HT 70 IN, BMI 35.38 INDEX, BP 142/86 MM HG, HR 84 /MIN, RR 20 /MIN, TEMP 97.9 F, OXYGEN SAT % 96%, NA INITIALS SC 10:32, REVIEWED BY: HIEN. ASSESSMENTS PELVIC PAIN - R10.2 (PRIMARY) PROCEDURES PRE-PROCEDURE DIAGNOSIS: PELVIC PAIN, PELVIC NEURALGIAPOST-PROCEDURE DIAGNOSIS: PELVIC PAIN, PELVIC NEURALGIAPROCEDURE: GANGLION IMPAR BLOCK WITH FLUOROSCOPIC GUIDANCESURGEON: KATRIN BERRY MDANESTHESIA: LOCALCOMPLICATIONS: NONEPRE-PROCEDURE NOTE: THE PATIENT HAS BEEN SUFFERING OF PELVIC PAIN. WE HAVE USE MEDICATIONS AND OTHER MODALITIES AND THE PAIN HAS PERSISTED. AFTER DISCUSSING ALTERNATIVES WE HAVE AGREED ON DOING A GANGLION IMPAR BLOCK LOOKING FOR LONG LASTING PAIN RELIEF. PROCEDURE NOTE: AFTER CONSENT WAS REVIEWED WITH THE PATIENT WE TOOK THE PATIENT TO THE PROCEDURE ROOM AND PLACED IT IN THE PRONE POSITION. LUMBOSACRAL AREA WAS CLEANED WITH BETHADINE SOLUTION AND DRAPED ASEPTICALLY. PROCEDURE WAS DONE UNDER STERILE CONDITIONS. THE SACRAL AREA WAS IDENTIFIED UNDER FLUOROSCOPY. THEN THE SACROCOCCYGEAL LIGAMENT WAS IDENTIFIED IN AP AND LATERAL VIEWS. THEN USING A 22 G NEEDLE WE ADVANCED THROUGH THE LIGAMENT SLOWLY UNTIL THE ANTERIOR BORDER OF THE LIGAMENT WAS REACHED. THE NEEDLE WAS ADVANCED SLOWLY WITH A LOSS OF RESISTANCE TECHNIQUE AND MULTIPLE LATERAL VIEWS. ISOVIEW DYE 30% 0.25 CC WAS INJECTED SHOWING ADEQUATE SPREAD OF THE DYE. THEN A SOLUTION OF 5 CC OF BUPIVACAINE .125% WITH KENALOG 30 MG WAS INJECTED. THERE WAS NO EVIDENCE OF VISCERAL OR BLADDER PUNCTURE. THERE WAS NO EVIDENCE OF PARESTHESIA OR VASCULAR UPTAKE. THE PATIENT WAS SEND TO THE RECOVERY ROOM. THERE WERE NO COMPLICATIONS. FLUOROSCOPY TIME WAS 14 SECONDS.POST-PROCEDURE NOTE: THE PATIENT WILL BE SEEN IN A FOLLOW UP IN THE NEXT FEW WEEKS. THERE WERE NO COMPLICATIONS. I, ANSHUL HDZ, DOCUMENTED THE ABOVE INFORMATION ACTING A SCRIBE FOR DR. BERRY. I HAVE REVIEWED THE ABOVE DOCUMENT, WRITTEN BY ANSHUL MIGUELIBShana AND I VERIFY THAT IT IS ACCURATE. DIAGNOSTIC IMAGING [facility] FLUORO GUIDANCE (PAIN)[id number] PROCEDURE CODES 6045F RADXPS IN END [id number] PXD 73518 NERVOUS SYSTEM SURGERY 69750 NEEDLE LOCALIZATION BY DAYANNA, MODIFIERS: 26 DISPOSITION & COMMUNICATION FOLLOW UP 3 WEEKS ELECTRONICALLY SIGNED BY KATRIN BERRY MD, MD ON 07/07/2018 AT 04:06 PM EDT DISCLAIMER : THIS IS A VISIT SUMMARY EXTRACTED FROM THE [facility] CHART. IT IS NOT A COPY OF THE [facility] PROGRESS NOTE. MTDD
== END ==
LOC: M PAIN 10:15
PROVIDERS: ATTEND Anesthesiology
DX: R10.2 Pelvic and perineal pain (principal); I10 Essential (primary) hypertension; E11.9 Type 2 diabetes mellitus without complications; F17.210 Nicotine dependence, cigarettes, uncomplicated; Z79.84 Long term (current) use of oral hypoglycemic drugs; Z79.899 Other long term (current) drug therapy; Z88.0 Allergy status to penicillin; Z88.8 Allergy status to other drugs, medicaments and biological substances; Z96.659 Presence of unspecified artificial knee joint; Z86.59 Personal history of other mental and behavioral disorders
CPT/HCPCS: 64520; 77003; J3301; Q9967

== ENCOUNTER → 2018-07-12 | Outpatient (CLI) | payer MEDICARE ==
[~2018-07-12] MED LIST changes: -BUPIVACAINE HCL 0.25% 30 ML VIAL As Ordered ONE; -ISOVUE-M 300 61% 15ML VIAL (Q9967) As Ordered ONE; -LIDOCAINE 1% SDV INJ 30 ML VIAL As Ordered ONE; -TRIAMCINOLONE ACETONIDE SUSP 40 MG/ML VIAL (J3301) As Ordered ONE; -diazePAM 5 MG TAB As Ordered ONE
--- NOTE | 2018-07-24 02:44 | ECWPNPC ---
PATIENT NAME: TROY ZARAGOZA : 1960 GENDER: MALE VISIT DATE: 07/12/2018 DISCHARGE DATE: 07/12/18 1204 VISIT LOCKED DATE TIME: PHYSICIAN: BEN LOPEZ RESOURCE: BEN LOPEZ REASON FOR APPOINTMENT 1. POST PROC HISTORY OF PRESENT ILLNESS HISTORY OF PRESENT ILLNESS: HERE FOR POST PROCEDURE F/U.HAD GANGLION IMPAR BLOCK ON06/20/18.TODAY PATIENT IS REPORTING LESS INTENSE GROIN,TESTICULAR AND PENILE PAIN.COMPLAINING OF BILAT.TOE ELECTRICAL PAIN.RATING PAIN VAS 5/10.DISCUSSED MEDICATION AND TREATMENT OPTIONS. PAIN THE PATIENT DESCRIBES THE PAIN... FALL RISK SCREENING: SCREENING :NO FALLS REPORTED IN THE LAST YEAR CURRENT MEDICATIONS TAKING METFORMIN HCL 500 MG TABLET 1 TABLET WITH A MEAL ORALLY BID TAKING ATORVASTATIN CALCIUM 10 MG TABLET 1 TABLET ORALLY ONCE A DAY TAKING FLOMAX 0.4 MG CAPSULE 1 CAPSULE ORALLY ONCE A DAY TAKING LAMOTRIGINE 100 MG TABLET 1 TABLET ORALLY BID TAKING LISINOPRIL 20 MG TABLET 1 TABLET ORALLY ONCE A DAY TAKING MAGNESIUM OXIDE -MG SUPPLEMENT 400 MG CAPSULE 1 CAPSULE NEEDED ORALLY ONCE A DAY TAKING POTASSIUM CITRATE ER 10 MEQ (1080 MG) TABLET EXTENDED RELEASE 1 TABLET WITH MEALS ORALLY THREE TIMES A DAY TAKING LYRICA 50 MG CAPSULE DIRECTED ORALLY BID TAKING SPIRIVA HANDIHALER 18 MCG CAPSULE 1 CAPSULE INHALATION ONCE A DAY MEDICATION LIST REVIEWED AND RECONCILED WITH THE PATIENT PAST MEDICAL HISTORY BIPOLAR HYPERTENSION DIABETES MALLITUS DEPRESSION BPH ALLERGIES PENICILLIN (FOR ALLERGIES USE ONLY): HIVES - ALLERGY HALDOL: MUSCLE SPASMS, HALLUCINATIONS - ALLERGY AMBIEN: HALLUCINATIONS - SIDE EFFECTS SURGICAL HISTORY KNEE REPLACEMENT LITHOTRIPSY 2006 CARTILEGE REMOVED FROM BOTH KNEES C5-C6 "HALF A DISC REMOVED" CYSTSCOPY 04/2018 FAMILY HISTORY FATHER: ALIVE, DIAGNOSED WITH DIABETES, HYPERTENSION, HEART DISEASE MOTHER: ALIVE SOCIAL HISTORY GENERAL: TOBACCO USE ARE YOU A:CURRENT SMOKER ARE YOU INTERESTED IN QUITTING?NOT READY TO QUIT COUNSELED THE PATIENT ON SMOKING EFFECTS, EDUCATION [id number]/30/2019 HOW MANY CIGARETTES A DAY DO YOU SMOKE?31 OR MORE HOW SOON AFTER YOU WAKE UP DO YOU SMOKE YOUR FIRST CIGARETTE?WITHIN 5 MIN HOW OFTEN DO YOU SMOKE CIGARETTES?EVERY DAY PATIENT COUNSELED ON THE DANGERS OF TOBACCO USE AND URGED TO QUIT:05/29/2018 DIET: REGULAR. LANGUAGE LANGUAGES SPOKEN:TOGOLESE RECREATIONAL DRUG USE DRUG USE?NO EXERCISE: NO REGULAR EXERCISE. PAIN CLINIC PFS, CLERGY, PUBLIC HEALTH REFERRALS HAS THE PATIENT BEEN EDUCATED REGARDING HIS/HER PLAN OF CARE?YES HAS THE PATIENT BEEN EDUCATED REGARDING PAIN, THE RISK FOR PAIN, THE IMPORTANCE OF EFFECTIVE PAIN MANAGEMENT, AND THE PAIN ASSESSMENT PROCESS?YES CAFFEINE CAFFEINE USE?YES HOW OFTEN AND HOW MUCH? 3-4 CUPS DAY. COFFEE/SODA ADVANCE DIRECTIVE ADVANCE DIRECTIVE DISCUSSED WITH PATIENT:YES PT HAS NO ADVANCED DIRECTIVES, DECLINES INFORMATION OR ASSISTANCE AT THIS TIME DENOMINATIONAL DENOMINATIONAL NO ORTHODOX BELIEFS THAT WOULD IMPACT HEALTH CARE. MARITAL STATUS: SINGLE. 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 SEXUAL HX HAD SEX IN THE LAST 12 MONTHS (VAGINAL, ORAL, OR ANAL)?NO HAVE YOU EVER HAD AN STD?NO REVIEWED WITH PT 05/29/18 1015 LAS. HOSPITALIZATION/MAJOR DIAGNOSTIC PROCEDURE SURGERY RELATED PSYCH ADMISSION - BIPOLAR REVIEW OF SYSTEMS REVIEWED BY: PROVIDER: BEN COTTON . CONSTITUTIONAL: ANY CHANGE IN YOUR MEDICAL CONDITION? NO . CHILLS NO . FEVER NO . INFECTION: DO YOU HAVE NEW INFECTIONS? NO . DO YOU HAVE HISTORY OF MRSA? NO . MUSCULOSKELETAL: ANY NEW PATTERNS OF PAIN OR NUMBNESS? NO . GASTROENTEROLOGY: ANY NEW CHANGE IN BOWEL CONTROL? NO . GENITOURINARY: ANY NEW CHANGE IN BLADDER CONTROL? NO . IS THERE A CHANCE YOU COULD BE ? NO . HEMATOLOGY/LYMPH: DO YOU TAKE ANY BLOOD THINNERS? (FOR EXAMPLE- COUMADIN, PLAVIX, AGGRENOX, PLATEL, PRADAXA, OR XARELTO) NO . WHEN WAS YOUR LAST DOSE? DATE: TIME: . NEUROLOGY: HAVE YOU FALLEN IN THE PAST 12 MONTHS? NO . ANY NEW EXTREMITY NUMBNESS OR WEAKNESS? NO . CARDIOLOGY: DO YOU HAVE A PACEMAKER OR DEFIBRILLATOR? NO . RESPIRATORY: HAVE YOU BEEN SICK IN THE PAST WEEK? NO . FEVER NO . FLU LIKE SYMPTOMS? NO . COUGH NO . INTEGUMENTARY: DO YOU HAVE ANY RASHES OR OPEN SORES? NO . ALLERGIC/IMMUNO: ARE YOU ALLERGIC TO IV DYE? NO . ANY NEW ALLERGIES? NO . PSYCHIATRIC: DO YOU HAVE THOUGHTS OF HURTING YOURSELF OR SOMEONE ELSE? NO . ARE YOU ABUSED, NEGLECTED, OR IN AN UNSAFE ENVIRONMENT? NO . ENDOCRINOLOGY: ARE YOU DIABETIC? YES . OTHER: DO YOU NEED ANY PRESCRIPTIONS? NO . IF YES, PLEASE LIST: ____ . ANY NEW PROBLEMS WITH YOUR MEDICATIONS? NO . WHEN DID YOU LAST EAT? ____ . WHEN DID YOU LAST DRINK? ____ . WHAT DID YOU LAST DRINK? ____ . NAME OF PERSON DRIVING YOU HOME? ____ . DO YOU HAVE ANY OTHER QUESTIONS OR CONCERNS YES, DISCUSS SURGICAL SOLUTION . VITAL SIGNS WT 245.8 LBS, HT 70 IN, BMI 35.26 INDEX, BP 117/62 MM HG, HR 70 /MIN, RR 18 /MIN, TEMP 97.5 F, OXYGEN SAT % 95%, NA INITIALS AW 1109, REVIEWED BY: EM. EXAMINATION GENERAL EXAMINATION: GENERAL APPEARANCE:AWAKE,ALERT ,PLEAASANT . PSYCHAFFECT NORMAL . LUNGS:LUNG RODRIGUEZ ARE CLEAR TO AUSCULTATION BILATERALLY. GOOD MOVEMENT OF AIR . HEART:S1, S2 IN A REGULAR RATE AND RHYTHM. NO SIGNIFICANT MURMURS, RUBS OR GALLOPS NOTED . ASSESSMENTS RECTAL PAIN - K62.89 (PRIMARY) NEUROPATHY - G62.9 TREATMENT RECTAL PAIN INCREASE LYRICA CAPSULE, 100 MG, DIRECTED, ORALLY, Q8H MDD3, 30 DAY(S), 90, REFILLS 2 NOTES: GANGLION IMPARS BLOCK. PROCEDURE CODES FA211 ESTABILISHED PATIENT [facility] CHARGE DISPOSITION & COMMUNICATION FOLLOW UP POST (REASON: GANGLION IMPARS BLOCK) ELECTRONICALLY SIGNED BY YURY BROOKE ON 07/23/2018 AT 07:59 AM EDT DISCLAIMER : THIS IS A VISIT SUMMARY EXTRACTED FROM THE [employer] CHART. IT IS NOT A COPY OF THE [employer] PROGRESS NOTE. TRAVON
== END ==
LOC: M PAIN 10:30
PROVIDERS: ATTEND Nurse Practitioner Family
DX: K62.89 Other specified diseases of anus and rectum (principal); G62.9 Polyneuropathy, unspecified; Z86.59 Personal history of other mental and behavioral disorders; I10 Essential (primary) hypertension; E11.9 Type 2 diabetes mellitus without complications; F17.210 Nicotine dependence, cigarettes, uncomplicated; Z88.0 Allergy status to penicillin; Z88.8 Allergy status to other drugs, medicaments and biological substances; Z79.84 Long term (current) use of oral hypoglycemic drugs

== ENCOUNTER → 2018-08-29 | Outpatient (CLI) | payer MEDICARE ==
[~2018-08-29] MED LIST changes: +BUPIVACAINE HCL 0.25% 30 ML VIAL As Ordered ONE; +ISOVUE-M 200 41% 20ML VIAL (Q9966) As Ordered ONE; +LIDOCAINE 1% SDV INJ 30 ML VIAL As Ordered ONE; +TRIAMCINOLONE ACETONIDE SUSP 40 MG/ML VIAL (J3301) As Ordered ONE; +diazePAM 5 MG TAB As Ordered ONE
--- NOTE | 2018-08-29 15:03 | REP ---
PARTIAL SACRUM SERIES: Four views. HISTORY: Ganglion block. 15 seconds of fluoroscopy time is reported. FINDINGS: A sequence of four last image hold fluoroscopically obtained spot radiographs of the sacrum and coccyx document needle position and contrast injection associated with injection procedure. Electronically Signed by Pineda Griggs MD 08/29/2018 04:26 P
--- NOTE | 2018-09-01 00:44 | ECWPNPC ---
PATIENT NAME: TROY ZARAGOZA : 1960 GENDER: MALE VISIT DATE: 08/29/2018 DISCHARGE DATE: 08/29/18 1228 VISIT LOCKED DATE TIME: PHYSICIAN: KATRIN BERRY MD RESOURCE: KATRIN BERRY MD REASON FOR APPOINTMENT 1. GANGLION IMPARS BLOCK HISTORY OF PRESENT ILLNESS HISTORY OF PRESENT ILLNESS: PAIN THE PATIENT DESCRIBES THE PAIN... FALL RISK SCREENING: SCREENING :NO FALLS REPORTED IN THE LAST YEAR CURRENT MEDICATIONS TAKING METFORMIN HCL 500 MG TABLET 1 TABLET WITH A MEAL ORALLY BID, NOTES: 08/28/18 AM TAKING ATORVASTATIN CALCIUM 10 MG TABLET 1 TABLET ORALLY ONCE A DAY, NOTES: 08/28/18 AM TAKING FLOMAX 0.4 MG CAPSULE 1 CAPSULE ORALLY ONCE A DAY, NOTES: 08/28/18 AM TAKING LAMOTRIGINE 100 MG TABLET 1 TABLET ORALLY BID, NOTES: 08/28/18 PM TAKING LISINOPRIL 20 MG TABLET 1 TABLET ORALLY ONCE A DAY, NOTES: 08/29/18 0530 TAKING MAGNESIUM OXIDE -MG SUPPLEMENT 400 MG CAPSULE 1 CAPSULE NEEDED ORALLY ONCE A DAY, NOTES: 08/28/18 AM TAKING POTASSIUM CITRATE ER 10 MEQ (1080 MG) TABLET EXTENDED RELEASE 1 TABLET WITH MEALS ORALLY THREE TIMES A DAY, NOTES: 08/28/18 PM TAKING SPIRIVA HANDIHALER 18 MCG CAPSULE 1 CAPSULE INHALATION ONCE A DAY, NOTES: 08/28/18 AM TAKING LYRICA 100 MG CAPSULE DIRECTED ORALLY Q8H MDD3, NOTES: 08/29/18 0530 MEDICATION LIST REVIEWED AND RECONCILED WITH THE PATIENT PAST MEDICAL HISTORY BIPOLAR HYPERTENSION DIABETES MALLITUS DEPRESSION BPH CHRONIC PAIN ALLERGIES PENICILLIN (FOR ALLERGIES USE ONLY): HIVES - ALLERGY HALDOL: MUSCLE SPASMS, HALLUCINATIONS - ALLERGY AMBIEN: HALLUCINATIONS - SIDE EFFECTS SURGICAL HISTORY KNEE REPLACEMENT LITHOTRIPSY 2006 CARTILEGE REMOVED FROM BOTH KNEES C5-C6 "HALF A DISC REMOVED" CYSTSCOPY 04/2018 FAMILY HISTORY FATHER: ALIVE, DIAGNOSED WITH DIABETES, HYPERTENSION, HEART DISEASE MOTHER: ALIVE SOCIAL HISTORY GENERAL: TOBACCO USE ARE YOU A:CURRENT SMOKER ARE YOU INTERESTED IN QUITTING?NOT READY TO QUIT COUNSELED THE PATIENT ON SMOKING EFFECTS, EDUCATION [id number]/17/2019 HOW MANY CIGARETTES A DAY DO YOU SMOKE?31 OR MORE HOW SOON AFTER YOU WAKE UP DO YOU SMOKE YOUR FIRST CIGARETTE?WITHIN 5 MIN HOW OFTEN DO YOU SMOKE CIGARETTES?EVERY DAY PATIENT COUNSELED ON THE DANGERS OF TOBACCO USE AND URGED TO QUIT:08/29/2018 DIET: REGULAR. LANGUAGE LANGUAGES SPOKEN:GIBRALTARIAN RECREATIONAL DRUG USE DRUG USE?NO EXERCISE: NO REGULAR EXERCISE. PAIN CLINIC PFS, CLERGY, PUBLIC HEALTH REFERRALS HAS THE PATIENT BEEN EDUCATED REGARDING HIS/HER PLAN OF CARE?YES HAS THE PATIENT BEEN EDUCATED REGARDING PAIN, THE RISK FOR PAIN, THE IMPORTANCE OF EFFECTIVE PAIN MANAGEMENT, AND THE PAIN ASSESSMENT PROCESS?YES LATEX QUESTIONNAIRE LATEX ALLERGY : HAVE YOU EVER DEVELOPED ANY TYPE OF REACTION AFTER HANDLING LATEX PRODUCTS SUCH RUBBER GLOVES, CONDOMS, DIAPHRAGMS, BALLOONS, SOCKS, OR UNDERWEAR?NO LATEX ALLERGY : HAVE YOU EVER DEVELOPED ANY TYPE OF REACTION DURING OR AFTER DENTAL APPOINTMENT, VAGINAL/RECTAL EXAMINATION, SURGICAL PROCEDURE, OR ANY OTHER EXPOSURE?NO LATEX RISK : HAVE YOU EVER HAD ANY DIFFICULTY BREATHING OR HIVES AFTER EATING OR HANDLING ANY FRUITS, OR VEGETABLES; SUCH KIWI, BANANAS, STONE FRUITS, OR CHESTNUTSNO LATEX RISK : DO YOU HAVE A PREVIOUS PERSONAL HISTORY OF MORE THAN NINE SURGERIES, SPINA BIFIDA, OR REPEATED CATHERIZATIONS? NO LATEX RISK : ARE YOU FREQUENTLY EXPOSED TO LATEX PRODUCTS IN YOUR OCCUPATION?NO DATE ASKED : 08/29/2018 CAFFEINE CAFFEINE USE?YES HOW OFTEN AND HOW MUCH? 3-4 CUPS DAY. COFFEE/SODA ADVANCE DIRECTIVE ADVANCE DIRECTIVE DISCUSSED WITH PATIENT:YES PT HAS NO ADVANCED DIRECTIVES, DECLINES INFORMATION OR ASSISTANCE AT THIS TIME. MORAVIAN MORAVIAN NO ALEVISM BELIEFS THAT WOULD IMPACT HEALTH CARE. MARITAL STATUS: SINGLE. 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 SEXUAL HX HAD SEX IN THE LAST 12 MONTHS (VAGINAL, ORAL, OR ANAL)?NO HAVE YOU EVER HAD AN STD?NO REVIEWED WITH PT 05/29/18 1015 LASREVIEWED WITH PATIENT 08/29/18 1019 JS. HOSPITALIZATION/MAJOR DIAGNOSTIC PROCEDURE SURGERY RELATED PSYCH ADMISSION - BIPOLAR REVIEW OF SYSTEMS REVIEWED BY: PROVIDER: . CONSTITUTIONAL: ANY CHANGE IN YOUR MEDICAL CONDITION? NO . CHILLS NO . FEVER NO . INFECTION: DO YOU HAVE NEW INFECTIONS? NO . DO YOU HAVE HISTORY OF MRSA? NO . MUSCULOSKELETAL: ANY NEW PATTERNS OF PAIN OR NUMBNESS? NO . GASTROENTEROLOGY: ANY NEW CHANGE IN BOWEL CONTROL? NO . GENITOURINARY: ANY NEW CHANGE IN BLADDER CONTROL? NO . IS THERE A CHANCE YOU COULD BE ? NO . HEMATOLOGY/LYMPH: DO YOU TAKE ANY BLOOD THINNERS? (FOR EXAMPLE- COUMADIN, PLAVIX, AGGRENOX, PLATEL, PRADAXA, OR XARELTO) NO . WHEN WAS YOUR LAST DOSE? DATE: TIME: . NEUROLOGY: HAVE YOU FALLEN IN THE PAST 12 MONTHS? NO . ANY NEW EXTREMITY NUMBNESS OR WEAKNESS? NO . CARDIOLOGY: DO YOU HAVE A PACEMAKER OR DEFIBRILLATOR? NO . RESPIRATORY: HAVE YOU BEEN SICK IN THE PAST WEEK? NO . FEVER NO . FLU LIKE SYMPTOMS? NO . COUGH NO . INTEGUMENTARY: DO YOU HAVE ANY RASHES OR OPEN SORES? NO . ALLERGIC/IMMUNO: ARE YOU ALLERGIC TO IV DYE? NO . ANY NEW ALLERGIES? NO . PSYCHIATRIC: DO YOU HAVE THOUGHTS OF HURTING YOURSELF OR SOMEONE ELSE? NO . ARE YOU ABUSED, NEGLECTED, OR IN AN UNSAFE ENVIRONMENT? NO . ENDOCRINOLOGY: ARE YOU DIABETIC? YES, DOESN'T DO FSBS . OTHER: DO YOU NEED ANY PRESCRIPTIONS? NO . IF YES, PLEASE LIST: ____ . ANY NEW PROBLEMS WITH YOUR MEDICATIONS? NO . WHEN DID YOU LAST EAT? ____08/28/18 1900 . WHEN DID YOU LAST DRINK? ____08/29/18 0900 . WHAT DID YOU LAST DRINK? ____WATER . NAME OF PERSON DRIVING YOU HOME? ____SHILPI ZARAGOZA . DO YOU HAVE ANY OTHER QUESTIONS OR CONCERNS NO . VITAL SIGNS WT 245 LBS, HT 70 IN, BMI 35.15 INDEX, BP 136/85 MM HG, HR 82 /MIN, RR 18 /MIN, TEMP 97.1 F, OXYGEN SAT % 95%, SAFE IN ENV? (Y/N) YES, NA INITIALS AW 1004, REVIEWED BY: MYRIAM. ASSESSMENTS NEURALGIA - M79.2 (PRIMARY) PELVIC PAIN - R10.2 PROCEDURES PRE-PROCEDURE DIAGNOSIS: PELVIC PAIN, PELVIC NEURALGIAPOST-PROCEDURE DIAGNOSIS: PELVIC PAIN, PELVIC NEURALGIAPROCEDURE: GANGLION IMPAR BLOCK WITH FLUOROSCOPIC GUIDANCESURGEON: KATRIN BERRY MDANESTHESIA: LOCALCOMPLICATIONS: NONEPRE-PROCEDURE NOTE: THE PATIENT HAS BEEN SUFFERING OF PELVIC PAIN. WE HAVE USE MEDICATIONS AND OTHER MODALITIES AND THE PAIN HAS PERSISTED. AFTER DISCUSSING ALTERNATIVES WE HAVE AGREED ON DOING A GANGLION IMPAR BLOCK LOOKING FOR LONG LASTING PAIN RELIEF. PROCEDURE NOTE: AFTER CONSENT WAS REVIEWED WITH THE PATIENT WE TOOK THE PATIENT TO THE PROCEDURE ROOM AND PLACED IT IN THE PRONE POSITION. LUMBOSACRAL AREA WAS CLEANED WITH BETHADINE SOLUTION AND DRAPED ASEPTICALLY. PROCEDURE WAS DONE UNDER STERILE CONDITIONS. THE SACRAL AREA WAS IDENTIFIED UNDER FLUOROSCOPY. THEN THE SACROCOCCYGEAL LIGAMENT WAS IDENTIFIED IN AP AND LATERAL VIEWS. THEN USING A 22 G NEEDLE WE ADVANCED THROUGH THE LIGAMENT SLOWLY UNTIL THE ANTERIOR BORDER OF THE LIGAMENT WAS REACHED. THE NEEDLE WAS ADVANCED SLOWLY WITH A LOSS OF RESISTANCE TECHNIQUE AND MULTIPLE LATERAL VIEWS. ISOVIEW DYE WAS INJECTED SHOWING ADEQUATE SPREAD OF THE DYE. THEN A SOLUTION OF 5 CC OF BUPIVACAINE .125% WITH KENALOG 30 MG WAS INJECTED. THERE WAS NO EVIDENCE OF VISCERAL OR BLADDER PUNCTURE. THERE WAS NO EVIDENCE OF PARESTHESIA OR VASCULAR UPTAKE. THE PATIENT WAS SEND TO THE RECOVERY ROOM. THERE WERE NO COMPLICATIONS. FLUOROSCOPIC TIME WAS 15 SECONDS.POST-PROCEDURE NOTE: THE PATIENT WILL BE SEEN IN A FOLLOW UP IN THE NEXT FEW WEEKS. THERE WERE NO COMPLICATIONS. I, ANSHUL HDZ, DOCUMENTED THE ABOVE INFORMATION ACTING A SCRIBE FOR DR. BERRY. I HAVE REVIEWED THE ABOVE DOCUMENT, WRITTEN BY ANSHUL MIGUELIBShana AND I VERIFY THAT IT IS ACCURATE. DIAGNOSTIC IMAGING [facility] FLUORO GUIDANCE (PAIN)[id number] PROCEDURE CODES 6045F RADXPS IN END [id number] PXD [id number] NEEDLE LOCALIZATION BY DAYANNA, MODIFIERS: [id number] NERVOUS SYSTEM SURGERY DISPOSITION & COMMUNICATION FOLLOW UP 3 WEEKS ELECTRONICALLY SIGNED BY KATRIN BERRY MD, MD ON 08/31/2018 AT 11:26 AM EDT DISCLAIMER : THIS IS A VISIT SUMMARY EXTRACTED FROM THE [employer] CHART. IT IS NOT A COPY OF THE [employer] PROGRESS NOTE. MTDD
== END ==
LOC: M PAIN 10:00
PROVIDERS: ATTEND Anesthesiology
DX: M79.2 Neuralgia and neuritis, unspecified (principal); R10.2 Pelvic and perineal pain; F31.9 Bipolar disorder, unspecified; I10 Essential (primary) hypertension; E11.9 Type 2 diabetes mellitus without complications; N40.0 Benign prostatic hyperplasia without lower urinary tract symptoms; G89.29 Other chronic pain; F17.210 Nicotine dependence, cigarettes, uncomplicated; Z79.84 Long term (current) use of oral hypoglycemic drugs; Z79.899 Other long term (current) drug therapy; Z88.0 Allergy status to penicillin; Z88.8 Allergy status to other drugs, medicaments and biological substances
CPT/HCPCS: 64520; 77003; J3301; Q9966

== ENCOUNTER → 2018-10-03 | Outpatient (CLI) | payer MEDICARE ==
[~2018-10-03] MED LIST changes: -BUPIVACAINE HCL 0.25% 30 ML VIAL As Ordered ONE; -ISOVUE-M 200 41% 20ML VIAL (Q9966) As Ordered ONE; -LIDOCAINE 1% SDV INJ 30 ML VIAL As Ordered ONE; -TRIAMCINOLONE ACETONIDE SUSP 40 MG/ML VIAL (J3301) As Ordered ONE; -diazePAM 5 MG TAB As Ordered ONE
--- NOTE | 2018-10-09 02:00 | ECWPNPC ---
PATIENT NAME: TROY ZARAGOZA : 1960 GENDER: MALE VISIT DATE: 10/03/2018 DISCHARGE DATE: 10/03/18 1521 VISIT LOCKED DATE TIME: PHYSICIAN: KATRIN BERRY MD RESOURCE: KATRIN BERRY MD REASON FOR APPOINTMENT 1. POST PROC PER DR Spann HISTORY OF PRESENT ILLNESS HISTORY OF PRESENT ILLNESS: PAIN THE PATIENT DESCRIBES THE PAIN... 58 YEAR OLD MALE WITH A HISTORY OF CHRONIC PELVIC AND PERIANAL PAIN. THE PATIENT DESCRIBES THE PAIN ACHING AND TENDER DURING THE DAY WITH A PAIN SCORE OF 2-6/10 DEPENDING ON PHYSICAL ACTIVITY. THE PATIENT HAD A GANGLION IMPARS BLOCK ON 08/29/2018, WHICH HE STATES THERE WAS A FAIR AMOUNT OF IMPROVEMENT, APPROXIMATELY 50% PAIN RELIEF FROM THE PROCEDURE. PATIENT STATED HE IS SCHEDULED TO SEE A NEUROSURGEON IN [place] NEXT MONTH TO GO OVER LUMBAR MRI RESULTS AND POSSIBLE SURGICAL OPTIONS FOR RADIATING BACK PAIN. PATIENT DENIES UNEXPLAINABLE WEIGHT LOSS, FEVER, CHILLS, NEW CHANGES ON HIS URINARY OR BOWEL CONTROL. FALL RISK SCREENING: SCREENING :NO FALLS REPORTED IN THE LAST YEAR CURRENT MEDICATIONS TAKING METFORMIN HCL 500 MG TABLET 1 TABLET WITH A MEAL ORALLY BID TAKING ATORVASTATIN CALCIUM 10 MG TABLET 1 TABLET ORALLY ONCE A DAY TAKING FLOMAX 0.4 MG CAPSULE 1 CAPSULE ORALLY ONCE A DAY TAKING LAMOTRIGINE 100 MG TABLET 1 TABLET ORALLY BID TAKING LISINOPRIL 20 MG TABLET 1 TABLET ORALLY ONCE A DAY TAKING MAGNESIUM OXIDE -MG SUPPLEMENT 400 MG CAPSULE 1 CAPSULE NEEDED ORALLY ONCE A DAY TAKING POTASSIUM CITRATE ER 10 MEQ (1080 MG) TABLET EXTENDED RELEASE 1 TABLET WITH MEALS ORALLY THREE TIMES A DAY TAKING SPIRIVA HANDIHALER 18 MCG CAPSULE 1 CAPSULE INHALATION ONCE A DAY TAKING LYRICA 100 MG CAPSULE DIRECTED ORALLY Q8H MDD3 MEDICATION LIST REVIEWED AND RECONCILED WITH THE PATIENT PAST MEDICAL HISTORY BIPOLAR HYPERTENSION DIABETES MALLITUS DEPRESSION BPH CHRONIC PAIN ALLERGIES PENICILLIN (FOR ALLERGIES USE ONLY): HIVES - ALLERGY HALDOL: MUSCLE SPASMS, HALLUCINATIONS - ALLERGY AMBIEN: HALLUCINATIONS - SIDE EFFECTS SURGICAL HISTORY KNEE REPLACEMENT LITHOTRIPSY 2006 CARTILEGE REMOVED FROM BOTH KNEES C5-C6 "HALF A DISC REMOVED" CYSTSCOPY 04/2018 FAMILY HISTORY FATHER: ALIVE, DIAGNOSED WITH DIABETES, HYPERTENSION, HEART DISEASE MOTHER: ALIVE SOCIAL HISTORY GENERAL: TOBACCO USE ARE YOU A:CURRENT SMOKER ARE YOU INTERESTED IN QUITTING?NOT READY TO QUIT COUNSELED THE PATIENT ON SMOKING EFFECTS, EDUCATION [id number]/17/2019 HOW MANY CIGARETTES A DAY DO YOU SMOKE?31 OR MORE HOW SOON AFTER YOU WAKE UP DO YOU SMOKE YOUR FIRST CIGARETTE?WITHIN 5 MIN HOW OFTEN DO YOU SMOKE CIGARETTES?EVERY DAY PATIENT COUNSELED ON THE DANGERS OF TOBACCO USE AND URGED TO QUIT:10/03/2018 DIET: REGULAR. LANGUAGE LANGUAGES SPOKEN:GREENLANDIC RECREATIONAL DRUG USE DRUG USE?NO EXERCISE: NO REGULAR EXERCISE. PAIN CLINIC PFS, CLERGY, PUBLIC HEALTH REFERRALS WAS THE PROVIDER NOTIFIED OF ANY PERTINENT INFO?YES HAS THE PATIENT BEEN EDUCATED REGARDING HIS/HER PLAN OF CARE?YES HAS THE PATIENT BEEN EDUCATED REGARDING PAIN, THE RISK FOR PAIN, THE IMPORTANCE OF EFFECTIVE PAIN MANAGEMENT, AND THE PAIN ASSESSMENT PROCESS?YES LATEX QUESTIONNAIRE LATEX ALLERGY : HAVE YOU EVER DEVELOPED ANY TYPE OF REACTION AFTER HANDLING LATEX PRODUCTS SUCH RUBBER GLOVES, CONDOMS, DIAPHRAGMS, BALLOONS, SOCKS, OR UNDERWEAR?NO LATEX ALLERGY : HAVE YOU EVER DEVELOPED ANY TYPE OF REACTION DURING OR AFTER DENTAL APPOINTMENT, VAGINAL/RECTAL EXAMINATION, SURGICAL PROCEDURE, OR ANY OTHER EXPOSURE?NO LATEX RISK : HAVE YOU EVER HAD ANY DIFFICULTY BREATHING OR HIVES AFTER EATING OR HANDLING ANY FRUITS, OR VEGETABLES; SUCH KIWI, BANANAS, STONE FRUITS, OR CHESTNUTSNO LATEX RISK : DO YOU HAVE A PREVIOUS PERSONAL HISTORY OF MORE THAN NINE SURGERIES, SPINA BIFIDA, OR REPEATED CATHERIZATIONS? NO LATEX RISK : ARE YOU FREQUENTLY EXPOSED TO LATEX PRODUCTS IN YOUR OCCUPATION?NO DATE ASKED : 10/03/2018 CAFFEINE CAFFEINE USE?YES HOW OFTEN AND HOW MUCH? 3-4 CUPS DAY. COFFEE/SODA ADVANCE DIRECTIVE ADVANCE DIRECTIVE DISCUSSED WITH PATIENT:YES PT HAS NO ADVANCED DIRECTIVES, DECLINES INFORMATION OR ASSISTANCE AT THIS TIME. MU-ISM MU-ISM NO LUTHERAN BELIEFS THAT WOULD IMPACT HEALTH CARE. MARITAL STATUS: SINGLE. 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 SEXUAL HX HAD SEX IN THE LAST 12 MONTHS (VAGINAL, ORAL, OR ANAL)?NO HAVE YOU EVER HAD AN STD?NO REVIEWED WITH PT 05/29/18 1015 LASREVIEWED WITH PATIENT 08/29/18 1019 JS. HOSPITALIZATION/MAJOR DIAGNOSTIC PROCEDURE SURGERY RELATED PSYCH ADMISSION - BIPOLAR REVIEW OF SYSTEMS REVIEWED BY: PROVIDER: KATRIN BERRY MD . CONSTITUTIONAL: ANY CHANGE IN YOUR MEDICAL CONDITION? NO . CHILLS NO . FEVER NO . INFECTION: DO YOU HAVE NEW INFECTIONS? NO . DO YOU HAVE HISTORY OF MRSA? NO . MUSCULOSKELETAL: ANY NEW PATTERNS OF PAIN OR NUMBNESS? NO . GASTROENTEROLOGY: ANY NEW CHANGE IN BOWEL CONTROL? NO, PT STATES THAT HE HAS NO CHANGE . GENITOURINARY: ANY NEW CHANGE IN BLADDER CONTROL? NO . IS THERE A CHANCE YOU COULD BE ? NO . HEMATOLOGY/LYMPH: DO YOU TAKE ANY BLOOD THINNERS? (FOR EXAMPLE- COUMADIN, PLAVIX, AGGRENOX, PLATEL, PRADAXA, OR XARELTO) NO . WHEN WAS YOUR LAST DOSE? DATE: TIME: . NEUROLOGY: HAVE YOU FALLEN IN THE PAST 12 MONTHS? NO . ANY NEW EXTREMITY NUMBNESS OR WEAKNESS? NO . CARDIOLOGY: DO YOU HAVE A PACEMAKER OR DEFIBRILLATOR? NO . RESPIRATORY: HAVE YOU BEEN SICK IN THE PAST WEEK? NO . FEVER NO . FLU LIKE SYMPTOMS? NO . COUGH NO . INTEGUMENTARY: DO YOU HAVE ANY RASHES OR OPEN SORES? NO . ALLERGIC/IMMUNO: ARE YOU ALLERGIC TO IV DYE? NO . ANY NEW ALLERGIES? NO . PSYCHIATRIC: DO YOU HAVE THOUGHTS OF HURTING YOURSELF OR SOMEONE ELSE? NO . ARE YOU ABUSED, NEGLECTED, OR IN AN UNSAFE ENVIRONMENT? NO . ENDOCRINOLOGY: ARE YOU DIABETIC? YES, TAKING ORAL MEDICATIONS . OTHER: DO YOU NEED ANY PRESCRIPTIONS? NO . IF YES, PLEASE LIST: ____ . ANY NEW PROBLEMS WITH YOUR MEDICATIONS? NO . WHEN DID YOU LAST EAT? ____ . WHEN DID YOU LAST DRINK? ____ . WHAT DID YOU LAST DRINK? ____ . NAME OF PERSON DRIVING YOU HOME? ____ . DO YOU HAVE ANY OTHER QUESTIONS OR CONCERNS NO . VITAL SIGNS WT 242.6 LBS, HT 70 IN, BMI 34.81 INDEX, BP 131/84 MM HG, HR 82 /MIN, RR 18 /MIN, TEMP 97.3 F, OXYGEN SAT % 95%, SAFE IN ENV? (Y/N) Y, NA INITIALS AW 1344, REVIEWED BY: RHIANNON. EXAMINATION GENERAL EXAMINATION: PATIENT IS ALERT O X 3 AND COOPERATIVE. ASSESSMENTS PELVIC PAIN - R10.2 (PRIMARY) RECTAL PAIN - K62.89 TREATMENT PELVIC PAIN CLINICAL NOTES: WE DISCUSSED SEVERAL ISSUES WITH MR. ZARAGOZA'S PAIN MANAGEMENT CASE. WE DISCUSSED THE OPTIONS OF DOING ANOTHER GANGLION IMPARS BLOCK OR REPEAT A FACET BLOCK DUE TO GOOD RESULTS IN 2017 FROM A LUMBAR THERAPEUTIC FACET BLOCK. WE WILL REQUEST A COPY OF THE LUMBAR SPINE MRI FROM THE NEUROSURGEON IN [place] ONCE THE IMAGING IS COMPLETED. THE PATIENT WILL FOLLOW UP WITH THE NURSE PRACTITIONER IN 3 WEEKS TO REVIEW MRI RESULTS AND GO OVER FUTURE OPTIONS, WITH CONSIDERATION OF A REPEATED LUMBAR FACET BLOCK. INSTRUCTIONS WERE GIVEN, QUESTIONS WERE ANSWERED, PATIENT REPORTS UNDERSTANDING AND AGREES WITH THE PLAN. I, FRANCISCO SOLANO, DOCUMENTED THE ABOVE INFORMATION ACTING A SCRIBE FOR DR. BERRY. I HAVE REVIEWED THE ABOVE DOCUMENT, WRITTEN BY FRANCISCO ESCOTO AND I VERIFY THAT IT IS ACCURATE.. PROCEDURE CODES FA211 ESTABILISHED PATIENT [facility] CHARGE G8427 CURRENT MEDS W/DOSAGES DOCUMENTED G8730 PAIN ASSESS POS TOOL F/U PLAN DOC DISPOSITION & COMMUNICATION FOLLOW UP 3 WEEKS (REASON: F/U W/ BEN LOPEZ TO GO OVER MRI RESULTS/CONSIDER REPEAT FB) ELECTRONICALLY SIGNED BY KATRIN BERRY MD, MD ON 10/08/2018 AT 12:02 PM EDT DISCLAIMER : THIS IS A VISIT SUMMARY EXTRACTED FROM THE [facility] CHART. IT IS NOT A COPY OF THE [facility] PROGRESS NOTE. TRAVON
== END ==
LOC: M PAIN 13:45
PROVIDERS: ATTEND Anesthesiology
DX: R10.2 Pelvic and perineal pain (principal); K62.89 Other specified diseases of anus and rectum; G89.29 Other chronic pain; Z86.59 Personal history of other mental and behavioral disorders; I10 Essential (primary) hypertension; E11.9 Type 2 diabetes mellitus without complications; F17.210 Nicotine dependence, cigarettes, uncomplicated; Z88.0 Allergy status to penicillin; Z88.8 Allergy status to other drugs, medicaments and biological substances; Z79.84 Long term (current) use of oral hypoglycemic drugs; Z79.899 Other long term (current) drug therapy

== ENCOUNTER 2018-10-18 10:28 | Inpatient (IN) | payer MEDICARE ==
[~2018-10-18] VITALS: Ht 177.8 cm; Wt 104.5 kg
[2018-10-18 10:54] LABS: HEMATOCRIT 46.5 % (42.0-52.0); HEMOGLOBIN 16.3 g/dl (13.5-17.5); MEAN CORPUSCULAR HGB CONC 35.1 g/dl (32.0-36.5); MEAN CORPUSCULAR VOLUME 85.5 fl (80.0-96.0); PLATELET COUNT, AUTOMATED 271 10^3/uL (150-450); RED BLOOD COUNT 5.44 10^6/uL (4.30-6.10); WHITE BLOOD COUNT 12.2 10^3/uL (4.0-10.0)
[2018-10-18] MEDS ORDERED: LISI-538 PO (10:55)
[2018-10-18] MEDS ORDERED: PREG100CA PO (10:55)
[2018-10-18] MEDS ORDERED: METF500T13 PO (10:59)
[2018-10-18] MEDS ORDERED: JANU100T PO (10:59)
[2018-10-18 11:31] LABS: ACETAMINOPHEN LEVEL < 2.0 UG/ML (10.0-30.0); ALBUMIN 3.8 GM/DL (3.2-5.2); ALT/SGPT 46 U/L (12-78); BILIRUBIN,DIRECT 0.1 MG/DL (0.0-0.2); BILIRUBIN,TOTAL 0.3 MG/DL (0.2-1.0); BLOOD UREA NITROGEN 11 MG/DL (7-18); CALCIUM LEVEL 8.7 MG/DL (8.8-10.2); CARBON DIOXIDE LEVEL 23 MEQ/L (21-32); CHLORIDE LEVEL 109 MEQ/L (98-107); CREATININE FOR GFR 0.86 MG/DL (0.70-1.30); ETHYL ALCOHOL (ETHANOL) < 0.003 % (0.000-0.010); GLOMERULAR FILTRATION RATE > 60.0 (>49); GLUCOSE, FASTING 159 MG/DL (70-100); POTASSIUM SERUM 3.9 MEQ/L (3.5-5.1); SALICYLATE LEVEL 4.5 MG/DL (5.0-30.0); SODIUM LEVEL 139 MEQ/L (136-145); THYROID STIMULATING HORMONE 0.904 uIU/ML (0.358-3.740)
[2018-10-18 13:54] LABS: AMPHETAMINES LEVEL URINE NEGATIVE (NEGATIVE); BARBITURATES URINE NEGATIVE (NEGATIVE); BENZODIAZEPINES URINE NEGATIVE (NEGATIVE); CANNABINOIDS URINE POSITIVE (NEGATIVE); COCAINE METABOLITE URINE NEGATIVE (NEGATIVE); METHADONE URINE NEGATIVE (NEGATIVE); OPIATES URINE NEGATIVE (NEGATIVE); PHENCYCLIDINE URINE NEGATIVE (NEGATIVE)
[2018-10-18] MEDS ORDERED: MAALOX 30 ML SUSP *UDC PO PRN (14:30)
[2018-10-18] MEDS ORDERED: MOM 30ML SUSPENSION UDC PO PRN (14:30)
[2018-10-18] MEDS ORDERED: SPIR1CAP INH (15:01)
[2018-10-18 15:20] VITALS: BP 163/94
[2018-10-18] MEDS: ACETAMINOPHEN TAB 650MG DOSE (2X325MG) PO PRN ×2 (17:00→23:50)
[2018-10-19] MEDS: HALOPERIDOL 5 MG TAB PO PRN (01:45)
[2018-10-19] MEDS: LORazepam 1 MG TAB PO PRN (01:45)
[2018-10-19] MEDS: traZODone 50 MG TAB PO PRN (01:56)
[2018-10-19 06:52] VITALS: BP 139/79
[2018-10-19] MEDS: ACETAMINOPHEN TAB 650MG DOSE (2X325MG) PO PRN (08:20)
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
[2018-10-19] MEDS: NICOTINE POLACRILEX 2 MG GUM PO PRN ×3 (12:18→21:14)
--- NOTE | 2018-10-19 13:40 | HPEPDOC ---
[facility] Medical History & Physical Date of Admission Oct 19, 2018 Date of Service: Oct 19, 2018 History and Physical CONSULT FOR: Psychiatry REASON FOR CONSULT: Medical H&P HISTORY OF PRESENT ILLNESS: This is a 58-year-old man brought in by police authorities for confusion. History of documented bipolar disorder manic episodes depression. With my conversation today he is quite scattered with pressured speech flight of ideas he is unable to give focused answers twice a day yes or no when asked specifically patient denies weight loss, hair loss, headache, visual changes, chest pain, shortness of breath, cough, nausea, vomiting, diarrhea, abdominal pain, muscle aches, worsening arthritis, change in mood] PAST MEDICAL HISTORY: 1. Chronic low back pain. 2. Chronic pelvic and perianal pain. 3. Diabetes 4 dyslipidemia 5 hypertension 6 COPD 7 bipolar disorder 8 BPH. HOME MEDICATIONS: Please see below. ALLERGIES: Please see below PAST SURGICAL HISTORY: 1. Knee replacement. 2. Lithotripsy. 3. Cartilage removal in both knees 4 partial discectomy C5-C6 5 cystoscopy. SOCIAL HISTORY: Lives with: Unable to be obtained, Employment: Unable to be obtained, Tobacco use: Active smoker. ETOH: Denies, Illicit drug use: Denies, CODE STATUS: Full code FAMILY HISTORY:Reviewed and noncontributory REVIEW OF SYSTEMS: 10 systems reviewed and negative other than HPI PHYSICAL EXAMINATION: VITAL SIGNS: Please see below GENERAL: Disheveled morbidly obese man up ambulating appears anxious with pressured scattered speech HEENT: Moist mucous membranes no elevation in CVP CARDIOVASCULAR: S1 S2 regular no additional heart sounds appreciated. Not tachycardic RESPIRATORY: Clear to auscultation bilaterally. Good air movement no wheeze ABDOMINAL: Bowel sounds present abdomen soft and nontender, obese EXTREMITIES: No clubbing cyanosis or edema NEUROLOGICAL: Spontaneously moves all 4 extremities cranial 2 through 12 grossly intact no gross focal deficits appreciated PSYCHOLOGICAL: As outlined above LABORATORY DATA: See below. MICROBIOLOGY: Please see below. IMAGING: None ASSESSMENT & PLAN: This is a 58-year-old man presenting with acute psychiatric episode PROBLEMS: 1. Bipolar disorder: Patient appears to be somewhat manic difficult to obtain any history at this time defer management psychiatry. 2. Dyslipidemia: Resume home statin 3. Hypertension: Restart home lisinopril 4. Chronic pain: Restart home Lyrica 5. BPH: Restart home Flomax 6. COPD: Restart Spiriva he appears to be at his baseline respiratory status: On room air ambulating 7. Diabetes: We'll place him on a consistent carb diet will check hemoglobin A1c tomorrow as well as a BMP assess his need for insulin while hospitalized versus resuming metformin and Januvia when able DVT PROPHYLAXIS: Ambulating Thank you for this interesting consult, we will continue to follow along with you. Please Vocera secure text or call with any specific questions. Vital Signs Vital Signs Date Time Temp Pulse Resp B/P (MAP) Pulse Ox O2 Delivery O2 Flow Rate FiO2 10/19/18 06:52 99.2 70 18 139/79 (99) 10/18/18 15:04 99 Home Medications Scheduled Atorvastatin Calcium (Atorvastatin Calcium) 10 Mg Tab, 10 MG PO DAILY for CHOLESTEROL Lisinopril (Lisinopril) 20 Mg Tablet, 20 MG PO DAILY Metformin HCl (Metformin HCl) 500 Mg Tablet, 500 MG PO BID Pregabalin (Lyrica) 100 Mg Capsule, 100 MG PO TID Sitagliptin Phosphate (Januvia) 100 Mg Tablet, 100 MG PO DAILY Tamsulosin HCl (Flomax) 0.4 Mg Cap, 0.8 MG PO DAILY Tiotropium [place] (Spiriva) 18 Mcg Cap.w.dev, 18 MCG INH DAILY Allergies Coded Allergies: Penicillins (Verified Allergy, Intermediate, rash, 10/18/18) divalproex sodium (Verified Allergy, Unknown, 10/18/18) haloperidol (Verified Adverse Reaction, Intermediate, "crazy", 10/18/18) zolpidem (Verified Adverse Reaction, Intermediate, "crazy", 10/18/18) A-FIB/CHADSVASC A-FIB History Current/History of A-Fib/PAF?: No CALIN BENNETT MD Oct 19, 2018 13:40
[2018-10-19] MEDS: ATORVASTATIN 10 MG TAB PO SCH (14:42)
[2018-10-19] MEDS: TAMSULOSIN 0.4 MG CAP PO SCH (14:42)
[2018-10-19] MEDS: LISINOPRIL 20 MG TAB PO SCH (14:43)
[2018-10-19] MEDS: PREGABALIN 100 MG CAP (LYRICA) PO SCH ×2 (15:26→21:13)
[2018-10-19 18:14] VITALS: BP 148/84
[2018-10-20] MEDS: NICOTINE POLACRILEX 2 MG GUM PO PRN ×4 (00:27→21:44)
[2018-10-20] MEDS: HALOPERIDOL 5 MG TAB PO PRN (02:05)
[2018-10-20] MEDS: LORazepam 1 MG TAB PO PRN (02:05)
[2018-10-20 06:06] VITALS: BP 120/82
[2018-10-20 07:52] LABS: HEMATOCRIT 45.1 % (42.0-52.0); HEMOGLOBIN 15.5 g/dl (13.5-17.5); MEAN CORPUSCULAR HEMOGLOBIN 29.4 pg (27.0-33.0); MEAN CORPUSCULAR HGB CONC 34.4 g/dl (32.0-36.5); MEAN CORPUSCULAR VOLUME 85.4 fl (80.0-96.0); PLATELET COUNT, AUTOMATED 236 10^3/uL (150-450); RED BLOOD COUNT 5.28 10^6/uL (4.30-6.10); WHITE BLOOD COUNT 10.1 10^3/uL (4.0-10.0)
[2018-10-20 08:11] LABS: HEMOGLOBIN A1c 9.2 %
[2018-10-20 08:17] LABS: BLOOD UREA NITROGEN 9 MG/DL (7-18); CALCIUM LEVEL 8.6 MG/DL (8.8-10.2); CARBON DIOXIDE LEVEL 26 MEQ/L (21-32); CHLORIDE LEVEL 107 MEQ/L (98-107); CREATININE FOR GFR 0.75 MG/DL (0.70-1.30); GLOMERULAR FILTRATION RATE > 60.0 (>49); GLUCOSE, FASTING 176 MG/DL (70-100); POTASSIUM SERUM 4.1 MEQ/L (3.5-5.1); SODIUM LEVEL 139 MEQ/L (136-145)
[2018-10-20] MEDS: LISINOPRIL 20 MG TAB PO SCH (09:34)
[2018-10-20] MEDS: ATORVASTATIN 10 MG TAB PO SCH (09:34)
[2018-10-20] MEDS: TIOTROPIUM INHALER/CAPSULE (SPIRIVA) INH SCH (09:34)
[2018-10-20] MEDS: TAMSULOSIN 0.4 MG CAP PO SCH (09:35)
[2018-10-20] MEDS: PREGABALIN 100 MG CAP (LYRICA) PO SCH ×3 (09:35→21:43)
--- NOTE | 2018-10-20 12:07 | IPNPDOC ---
Date Seen The patient was seen on 10/20/18. Progress Note SUBJECTIVE: Patient tells me that he needs a pedicure and that he wants to wear different pair of shoes he does not answer questions which is directly asked, he continues to exhibit tangential thought process and pressured speech but certainly not as bad as previous days exam OBJECTIVE PHYSICAL EXAMINATION: VITAL SIGNS: Please see below. 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 Not tachycardic RESPIRATORY: Clear to auscultation bilaterally. Good air movement no wheeze ABDOMINAL: Bowel sounds present abdomen soft and nontender, obese EXTREMITIES: No clubbing cyanosis or edema, he does display his nails with no gross deformities NEUROLOGICAL: Spontaneously moves all 4 extremities cranial 2 through 12 grossly intact no gross focal deficits appreciated PSYCHOLOGICAL: As outlined above LABORATORY DATA: See below. MICROBIOLOGY: Please see below. IMAGING: None ASSESSMENT & PLAN: This is a 58-year-old man presenting with bipolar disorder PROBLEMS: 1. Bipolar disorder: Patient appears to be somewhat manic although improved from previous days exam difficult to obtain any history at this time defer management psychiatry. 2. Dyslipidemia: Continue with home statin 3. Hypertension: Controlled continue with lisinopril 4. Chronic pain: Controlled continue with Lyrica 5. BPH: No symptomatic complaints at this time continue with Flomax 6. COPD: Continue with Spiriva he appears to be at his baseline respiratory status: On room air ambulating 7. Diabetes: Continue with consistent carbohydrate diet resume metformin and Januvia will start sliding scale and fingerstick checks now that his behavior has improved DVT PROPHYLAXIS: Ambulating Thank you for this interesting consult, we will continue to follow along with you. Please Vocera secure text or call with any specific questions. VS, I&O, 24H, Fishbone Vital Signs/I&O Vital Signs Date Time Temp Pulse Resp B/P (MAP) Pulse Ox O2 Delivery O2 Flow Rate FiO2 10/20/18 09:34 150/94 10/20/18 06:06 98.7 70 18 10/18/18 15:04 99 Laboratory Data 24H LABS Laboratory Tests 2 10/20/18 07:32: Nucleated Red Blood Cells % (auto) 0.0, Anion Gap 6L, Glomerular Filtration Rate > 60.0, Estimated Mean Plasma Glucose 217H, Hemoglobin A1c 9.2, Blood Urea Nitrogen 9, Creatinine 0.75, Sodium Level 139, Potassium Level 4.1, Chloride Level 107, Carbon Dioxide Level 26, Calcium Level 8.6L CBC/BMP Laboratory Tests 10/20/18 07:32 Red Blood Count 5.28, Mean Corpuscular Volume 85.4, Mean Corpuscular Hemoglobin 29.4, Mean Corpuscular Hemoglobin Concent 34.4, Red Cell Distribution Width 12.2, Calcium Level 8.6 L CALIN BENNETT MD Oct 20, 2018 12:07
[2018-10-20] MEDS ORDERED: GLUCAGON FOR INJ 1 MG VIAL (J1610) SC PRN (12:15)
[2018-10-20] MEDS ORDERED: GLUCOSE 4 GM CHEW TABLET PO PRN (12:15)
[2018-10-20] MEDS: HumaLOG INSULIN (NovoLOG) PER UNIT SC SCH ×3 (12:40→21:00)
[2018-10-20] MEDS: SITagliptin 50 MG TAB (JANUVIA) PO SCH (13:04)
[2018-10-20 16:26] VITALS: BP 137/64
[2018-10-20] MEDS: metFORMIN (GLUCOPHAGE) 500 MG TAB PO SCH (17:16)
--- NOTE | 2018-10-20 22:05 | MHIPN ---
DATE: 10/20/2018 The patient today states "I am alright as long as...." Basically, the patient started to mumble and I could not understand the end of the sentences. The only other thing I understood is that he was wondering "when they will let me go home." MENTAL STATUS EXAMINATION: I am unable to do a full mental status examination because as I said I could not really understand what the patient was saying. He was basically mumbling. Judgment is poor. DIAGNOSIS: 1. Bipolar disorder type 1, most recent episode manic with psychosis. TREATMENT PLAN: We will continue to further evaluate and monitor the patient for what appears to be delusions, disorganized thoughts, and we will then titrate medications as indicated until the patient is stabilized. TRAVON
[2018-10-21] MEDS: NICOTINE POLACRILEX 2 MG GUM PO PRN ×3 (00:25→20:49)
[2018-10-21] MEDS: LORazepam 1 MG TAB PO PRN ×2 (04:08→20:49)
[2018-10-21 06:47] VITALS: BP 154/90
[2018-10-21] MEDS: HumaLOG INSULIN (NovoLOG) PER UNIT SC SCH ×4 (07:31→20:44)
[2018-10-21] MEDS: metFORMIN (GLUCOPHAGE) 500 MG TAB PO SCH ×2 (07:52→17:11)
[2018-10-21] MEDS: TIOTROPIUM INHALER/CAPSULE (SPIRIVA) INH SCH (08:31)
[2018-10-21] MEDS: TAMSULOSIN 0.4 MG CAP PO SCH (08:33)
[2018-10-21] MEDS: LISINOPRIL 20 MG TAB PO SCH (08:33)
[2018-10-21] MEDS: SITagliptin 50 MG TAB (JANUVIA) PO SCH (08:33)
[2018-10-21] MEDS: ATORVASTATIN 10 MG TAB PO SCH (08:34)
[2018-10-21] MEDS: PREGABALIN 100 MG CAP (LYRICA) PO SCH ×3 (08:34→20:49)
[2018-10-21 16:39] VITALS: BP 139/89
--- NOTE | 2018-10-21 17:34 | MHIPN ---
DATE: 10/21/2018 The patient today tells me that he is doing good. He tells me that he is going to take a shower, that his is coming to visit him. His speech is still mumbled but not as bad as it was before. MENTAL STATUS EXAMINATION: The patient is alert and oriented times three. Eye contact is fair. As I said, speech is more understandable today, it is not pressured and he says that he is feeling good. Affect is more appropriate. There is no formal thought disorder noted. He is not psychotic or suicidal or homicidal. Concentration is fair. Insight and judgment is poor. DIAGNOSIS: 1. Bipolar disorder type 1, most recent episode manic with psychosis. TREATMENT PLAN: We will continue to further evaluate and monitor the patient for what appears to be delusions, disorganized thoughts, and we will then titrate medications as indicated until the patient is stabilized. TREATMENT PLAN: TRAVON
[2018-10-21] MEDS: traZODone 50 MG TAB PO PRN (20:49)
[2018-10-21] MEDS: HALOPERIDOL 5 MG TAB PO PRN (20:49)
[2018-10-22 06:45] VITALS: BP 156/86
[2018-10-22] MEDS: HumaLOG INSULIN (NovoLOG) PER UNIT SC SCH ×4 (07:13→21:00)
[2018-10-22] MEDS: SITagliptin 50 MG TAB (JANUVIA) PO SCH (08:50)
[2018-10-22] MEDS: TIOTROPIUM INHALER/CAPSULE (SPIRIVA) INH SCH (08:50)
[2018-10-22] MEDS: TAMSULOSIN 0.4 MG CAP PO SCH (08:50)
[2018-10-22] MEDS: ATORVASTATIN 10 MG TAB PO SCH (08:51)
[2018-10-22] MEDS: PREGABALIN 100 MG CAP (LYRICA) PO SCH ×3 (08:51→20:37)
[2018-10-22] MEDS: LISINOPRIL 20 MG TAB PO SCH (08:51)
[2018-10-22] MEDS: metFORMIN (GLUCOPHAGE) 500 MG TAB PO SCH ×2 (08:51→17:24)
[2018-10-22] MEDS: NICOTINE POLACRILEX 2 MG GUM PO PRN ×3 (08:53→20:36)
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
[2018-10-22] MEDS ORDERED: PALIPERIDONE 3 MG ER TAB (INVEGA) PO ONE (11:00)
[2018-10-22] MEDS ORDERED: DIVALPROEX 500 MG TAB PO ONE (11:00)
[2018-10-22 15:44] VITALS: BP 155/96
[2018-10-22] MEDS: PALIPERIDONE 3 MG ER TAB (INVEGA) PO SCH (20:36)
[2018-10-22] MEDS: DIVALPROEX 500 MG TAB PO SCH (20:37)
[2018-10-23] MEDS: NICOTINE POLACRILEX 2 MG GUM PO PRN ×3 (02:26→16:13)
[2018-10-23 07:00] VITALS: BP 139/88
[2018-10-23] MEDS: HumaLOG INSULIN (NovoLOG) PER UNIT SC SCH ×4 (07:03→21:00)
[2018-10-23] MEDS: PALIPERIDONE 3 MG ER TAB (INVEGA) PO SCH ×2 (09:19→21:05)
[2018-10-23] MEDS: metFORMIN (GLUCOPHAGE) 500 MG TAB PO SCH ×2 (09:19→17:03)
[2018-10-23] MEDS: ATORVASTATIN 10 MG TAB PO SCH (09:19)
[2018-10-23] MEDS: LISINOPRIL 20 MG TAB PO SCH (09:19)
[2018-10-23] MEDS: TAMSULOSIN 0.4 MG CAP PO SCH (09:19)
[2018-10-23] MEDS: SITagliptin 50 MG TAB (JANUVIA) PO SCH (09:20)
[2018-10-23] MEDS: PREGABALIN 100 MG CAP (LYRICA) PO SCH ×3 (09:20→21:05)
[2018-10-23] MEDS: DIVALPROEX 500 MG TAB PO SCH ×2 (09:20→21:05)
[2018-10-23] MEDS: TIOTROPIUM INHALER/CAPSULE (SPIRIVA) INH SCH (09:20)
--- NOTE | 2018-10-23 10:47 | MHIPNPDOC ---
[facility] Progress Note Progress Note DATE OF SERVICE: 10/23/18 HISTORY: Patient is a 58 -year-old , male, who presented to the ED via [employer] from [facility] for a manic episode. upon arrival the bharti ice reported that he was making no logical sense during the ride to the hospital from [facility]. In the ED the patient was very disorganized, rambling about his father's dementia and its relevance to VHS and Beta tapes and other issues that were difficult to follow. He was oriented to person and place but it was difficult to discern if he was oriented to time due to his mental state at the time. He appeared manic in the ED and he has a known history of bipolar disorder. He was easily verbally agitated, he left his room multiple times, raised his voice and stated tat the [facility] staff were in disguise. He was reported to have very poor insight and judgment and appeared to be unsafe outside the hospital. On admission he was noted to be positive for delusions, denial, labile mood, ayesha, non-compliance, paranoia, psychosis, poor concentration, and erratic sleep. Attempted to speak with pt in his room with sitter present and pt states in rapid speech he was sent from [facility] after his father brought him for appt. States "he joke with licensed massage therapist... got angry in the ambulance and hurt my arm... All I need is my arm fixed which can be down out of here, my clothes, my shoes to go home today... I'm not staying." Pt started stand and I started progressively b/c he was getting more and more agitated after told he would get his shoes back today and would not leaving today. He is unpredictable aggressive and currently on 1:1 sitter with a strong man. Will restart depakote 500mg bid for mood stabilization, invega 3mg bid with plan for invega sustenna in the future with tolerance and benefit from oral use, zyprexa 10mg tid for ayesha/agitation. Pt is a very poor historian so history gathered from previous records. VITAL SIGNS: See below. NEW TEST RESULTS: See below. CURRENT MEDICATIONS: See below. MENTAL STATUS EXAMINATION: General Appearance: unkempt, appears stated age, hospital scrubs/clothing Build: overweight Demeanor: more cooperative, and pleasant Eye Contact: fair Activity: average Behavior: cooperative Speech: reg, spontaneous Mood: less manic, less irritable Thought Process: more linear and logical Thought Content (Delusions): less paranoid, grandiose Thought Content (Other): none reported Thought Content (Aggressive): less aggressive (unpredictable) Perception (Hallucinations): none reported Perception (Other): derealization Cognition (Impairment of): unable to assess Cognition(Intelligence Est.): improving Oriented: Awake, Alert, Ox3 Insight: poor Judgment: Poor Psychosis: Abstract Thinking DIAGNOSES: Bipolar type 1 MRE acute ayesha and psychosis ASSESSMENT:Pt seen today after he had been in [place] [facility] [place] with his peers. He states he's doing well today and has taken his medications this morning (refused last night) that he feels are beneficial and he's tolerating well. He appears much less paranoid, reactive, irritable today with use of his medications. He's not isolating in his room today due to not feeling paranoid. States he spoke to his on the phone who is supportive of him. He is much more pleasant and cooperative today. Greatly improved psychomotor agitation, irritability, grandiose thoughts, paranoia with med use. Denies SI/HI. He did not require ativan or haldol for agitation yesterday. MANAGEMENT PLAN: continue plan depakote 500mg bid invega 3mg bid haldol 10mg q4hr prn anxiety/agitation ativan 2mg q4hr prn anxiety/agitation TIME SPENT: 30 minutes. Vital Signs Vital Signs Date Time Temp Pulse Resp B/P (MAP) Pulse Ox O2 Delivery O2 Flow Rate FiO2 10/23/18 09:19 139/88 10/23/18 07:00 97.1 94 18 10/18/18 15:04 99 Laboratory Data 24H Labs Laboratory Tests 2 10/22/18 12:06: Bedside Glucose (Misc Panel) 133H 10/22/18 16:38: Bedside Glucose (Misc Panel) 159H 10/22/18 20:33: Bedside Glucose (Misc Panel) 138H 10/23/18 06:27: Bedside Glucose (Misc Panel) 171H Current Medications Current Medications Medications (Trade) Dose Ordered Sig/Terrance Route PRN Reason Start Time Stop Time Status Last Admin Dose Admin Acetaminophen (Tylenol Tab) 650 mg Q6HP PRN PO PAIN / FEVER 9/5/19 17:00 10/19/18 08:20 Al Hydrox/Mg Hydrox/Simethicone (Mylanta) 30 ml Q4HP PRN PO HEARTBURN/INDIGESTION 10/18/18 14:30 Atorvastatin Calcium (Lipitor) 10 mg DAILY PO 10/19/18 09:00 10/23/18 09:19 Divalproex Sodium (Depakote) 500 mg BID PO 10/22/18 21:00 10/23/18 09:20 Glucagon (Glucagon) 1 mg ASDIRECTED PRN SC SEE LABEL COMMENTS 10/20/18 12:15 Glucose (Glucose) 16 GM ASDIRECTED PRN PO SEE LABEL COMMENTS 10/20/18 12:15 Haloperidol (Haldol) 10 mg Q4HP PRN PO ANXIETY/AGITATION 10/18/18 14:30 10/21/18 20:49 Home Med (Med Rec Complete!) ASDIRECTED XX 10/18/18 15:15 10/18/18 15:15 DC Insulin Human Lispro (HumaLOG INSULIN) See Protocol Table AC SC 10/20/18 12:00 10/23/18 07:03 Insulin Human Lispro (HumaLOG INSULIN) See Protocol Table QHS SC 10/20/18 21:00 Lisinopril (Prinivil) 20 mg DAILY PO 10/19/18 09:00 10/23/18 09:19 Lorazepam (Ativan) 2 mg Q4HP PRN PO ANXIETY/AGITATION 10/18/18 14:30 10/21/18 20:49 Magnesium Hydroxide (Milk Of Magnesia) 30 ml DAILYPRN PRN PO CONSTIPATION 10/18/18 14:30 Metformin HCl (Glucophage) 500 mg BID@0800,1800 PO 10/20/18 18:00 10/23/18 09:19 Nicotine (Nicorette) 2 mg Q2HP PRN PO SMOKING CESSATION 10/19/18 11:45 10/23/18 06:31 Paliperidone (Invega) 3 mg QAM PO 10/23/18 09:00 10/23/18 09:19 Paliperidone (Invega) 3 mg QHS PO 10/22/18 21:00 10/22/18 20:36 Pregabalin (Lyrica) 100 mg TID PO 10/19/18 16:00 10/23/18 09:20 Sitagliptin Phosphate (Januvia) 100 mg DAILY PO 10/20/18 09:00 10/23/18 09:20 Tamsulosin HCl (Flomax) 0.8 mg DAILY PO 10/19/18 09:00 10/23/18 09:19 Tiotropium [place] (Spiriva Handihaler) 1 inhalation DAILY INH 10/20/18 09:00 10/23/18 09:20 Trazodone HCl (Desyrel) 50 mg QHSP PRN PO INSOMNIA 10/18/18 14:30 10/21/18 20:49 Allergies Coded Allergies: Penicillins (Verified Allergy, Intermediate, rash, 10/18/18) haloperidol (Verified Adverse Reaction, Intermediate, "crazy", 10/18/18) zolpidem (Verified Adverse Reaction, Intermediate, "crazy", 10/18/18) divalproex sodium (Verified Adverse Reaction, Mild, weight gain, 10/22/18) STEPHANIE BAZAN DO Oct 23, 2018 10:46 am
[2018-10-23 18:00] VITALS: BP 137/96
[2018-10-24] MEDS: ACETAMINOPHEN TAB 650MG DOSE (2X325MG) PO PRN (02:42)
[2018-10-24 06:57] VITALS: BP 118/68
[2018-10-24] MEDS: HumaLOG INSULIN (NovoLOG) PER UNIT SC SCH ×4 (06:58→20:12)
[2018-10-24] MEDS: TIOTROPIUM INHALER/CAPSULE (SPIRIVA) INH SCH (09:14)
[2018-10-24] MEDS: ATORVASTATIN 10 MG TAB PO SCH (09:15)
[2018-10-24] MEDS: TAMSULOSIN 0.4 MG CAP PO SCH (09:15)
[2018-10-24] MEDS: LISINOPRIL 20 MG TAB PO SCH (09:15)
[2018-10-24] MEDS: metFORMIN (GLUCOPHAGE) 500 MG TAB PO SCH ×2 (09:15→17:07)
[2018-10-24] MEDS: PALIPERIDONE 3 MG ER TAB (INVEGA) PO SCH ×2 (09:16→20:12)
[2018-10-24] MEDS: SITagliptin 50 MG TAB (JANUVIA) PO SCH (09:16)
[2018-10-24] MEDS: PREGABALIN 100 MG CAP (LYRICA) PO SCH ×3 (09:16→20:12)
[2018-10-24] MEDS: DIVALPROEX 500 MG TAB PO SCH ×2 (09:16→20:12)
--- NOTE | 2018-10-24 12:12 | MHIPNPDOC ---
[facility] Progress Note Progress Note DATE OF SERVICE: 10/24/18 HISTORY: Patient is a 58 -year-old , male, who presented to the ED via [employer] from [facility] for a manic episode. upon arrival the bharti ice reported that he was making no logical sense during the ride to the hospital from [facility]. In the ED the patient was very disorganized, rambling about his father's dementia and its relevance to VHS and Beta tapes and other issues that were difficult to follow. He was oriented to person and place but it was difficult to discern if he was oriented to time due to his mental state at the time. He appeared manic in the ED and he has a known history of bipolar disorder. He was easily verbally agitated, he left his room multiple times, raised his voice and stated tat the [facility] staff were in disguise. He was reported to have very poor insight and judgment and appeared to be unsafe outside the hospital. On admission he was noted to be positive for delusions, denial, labile mood, ayesha, non-compliance, paranoia, psychosis, poor concentration, and erratic sleep. Attempted to speak with pt in his room with sitter present and pt states in rapid speech he was sent from [facility] after his father brought him for appt. States "he joke with mineral mixer... got angry in the ambulance and hurt my arm... All I need is my arm fixed which can be down out of here, my clothes, my shoes to go home today... I'm not staying." Pt started stand and I started progressively b/c he was getting more and more agitated after told he would get his shoes back today and would not leaving today. He is unpredictable aggressive and currently on 1:1 sitter with a strong man. Will restart depakote 500mg bid for mood stabilization, invega 3mg bid with plan for invega sustenna in the future with tolerance and benefit from oral use, zyprexa 10mg tid for ayesha/agitation. Pt is a very poor historian so history gathered from previous records. VITAL SIGNS: See below. NEW TEST RESULTS: See below. CURRENT MEDICATIONS: See below. MENTAL STATUS EXAMINATION: General Appearance: unkempt, appears stated age, hospital scrubs/clothing Build: overweight Demeanor: more cooperative, and pleasant Eye Contact: fair Activity: average Behavior: uncooperative, hostile Speech: rapid Mood: agitated Thought Process: tangental Thought Content (Delusions): paranoid, grandiose Thought Content (Other): "I will slam my head thru to door to get out of here if I'm not discharged tomorrow!" jabbing his finger toward and verbally very aggressive. Pos SI and HI Thought Content (Aggressive): aggressive (unpredictable) Perception (Hallucinations): none reported Perception (Other): derealization Cognition (Impairment of): unable to assess Cognition(Intelligence Est.): improving Oriented: Awake, Alert, Ox3 Insight: poor Judgment: Poor Psychosis: Abstract Thinking DIAGNOSES: Bipolar type 1 MRE acute ayesha and psychosis ASSESSMENT:Pt seen today and demanding to leave today. States he's doing ok and talking about getting into [employer] again to make some money, comes across as grandiose and is hyperverbal. Did remain compliant on his medications and states he thinks it's benefcial and he's tolerating it well. Demanding to leave today stating something about his outpatient doc and medication that didn't make much sense. He was getting more and more agitated demanding to leave. Finally agreed to stay for today but threatened that "I will slam my head thru to door to get out of here if I'm not discharged tomorrow!" jabbing his finger toward and verbally very aggressive. He remains very labile and reactive toward aggression and agitation. His insight and judgement are very poor. He is psychomotor agitation, irritability, grandiose thoughts, paranoia with med use. Endorses SI and HI as per threats made today (see above). He did not require ativan or haldol for agitation yesterday. MANAGEMENT PLAN: continue plan depakote 500mg bid invega 3mg bid haldol 10mg q4hr prn anxiety/agitation ativan 2mg q4hr prn anxiety/agitation TIME SPENT: 30 minutes. Vital Signs Vital Signs Date Time Temp Pulse Resp B/P (MAP) Pulse Ox O2 Delivery O2 Flow Rate FiO2 10/24/18 06:57 98.5 67 14 118/68 (85) 10/18/18 15:04 99 Laboratory Data 24H Labs Laboratory Tests 2 10/23/18 17:02: Bedside Glucose (Misc Panel) 116H 10/23/18 21:03: Bedside Glucose (Misc Panel) 148H 10/24/18 06:04: Bedside Glucose (Misc Panel) 135H Current Medications Current Medications Medications (Trade) Dose Ordered Sig/Terrance Route PRN Reason Start Time Stop Time Status Last Admin Dose Admin Acetaminophen (Tylenol Tab) 650 mg Q6HP PRN PO PAIN / FEVER 10/18/18 17:00 10/24/18 02:42 Al Hydrox/Mg Hydrox/Simethicone (Mylanta) 30 ml Q4HP PRN PO HEARTBURN/INDIGESTION 10/18/18 14:30 10/24/18 11:02 Atorvastatin Calcium (Lipitor) 10 mg DAILY PO 10/19/18 09:00 10/24/18 09:15 Divalproex Sodium (Depakote) 500 mg BID PO 10/22/18 21:00 10/24/18 09:16 Glucagon (Glucagon) 1 mg ASDIRECTED PRN SC SEE LABEL COMMENTS 10/20/18 12:15 Glucose (Glucose) 16 GM ASDIRECTED PRN PO SEE LABEL COMMENTS 10/20/18 12:15 Haloperidol (Haldol) 10 mg Q4HP PRN PO ANXIETY/AGITATION 10/18/18 14:30 10/21/18 20:49 Home Med (Med Rec Complete!) ASDIRECTED XX 10/18/18 15:15 10/18/18 15:15 DC Insulin Human Lispro (HumaLOG INSULIN) See Protocol Table AC SC 10/20/18 12:00 10/24/18 06:58 Insulin Human Lispro (HumaLOG INSULIN) See Protocol Table QHS SC 10/20/18 21:00 Lisinopril (Prinivil) 20 mg DAILY PO 10/19/18 09:00 10/24/18 09:15 Lorazepam (Ativan) 2 mg Q4HP PRN PO ANXIETY/AGITATION 10/18/18 14:30 10/21/18 20:49 Magnesium Hydroxide (Milk Of Magnesia) 30 ml DAILYPRN PRN PO CONSTIPATION 10/18/18 14:30 Metformin HCl (Glucophage) 500 mg BID@0800,1800 PO 10/20/18 18:00 10/24/18 09:15 Nicotine (Nicorette) 2 mg Q2HP PRN PO SMOKING CESSATION 10/19/18 11:45 10/23/18 16:13 Paliperidone (Invega) 3 mg QAM PO 10/23/18 09:00 10/24/18 09:16 Paliperidone (Invega) 3 mg QHS PO 10/22/18 21:00 10/23/18 21:05 Pregabalin (Lyrica) 100 mg TID PO 10/19/18 16:00 10/24/18 09:16 Sitagliptin Phosphate (Januvia) 100 mg DAILY PO 10/20/18 09:00 10/24/18 09:16 Tamsulosin HCl (Flomax) 0.8 mg DAILY PO 10/19/18 09:00 10/24/18 09:15 Tiotropium [place] (Spiriva Handihaler) 1 inhalation DAILY INH 10/20/18 09:00 10/24/18 09:14 Trazodone HCl (Desyrel) 50 mg QHSP PRN PO INSOMNIA 10/18/18 14:30 10/21/18 20:49 Allergies Coded Allergies: Penicillins (Verified Allergy, Intermediate, rash, 10/18/18) haloperidol (Verified Adverse Reaction, Intermediate, "crazy", 10/18/18) zolpidem (Verified Adverse Reaction, Intermediate, "crazy", 10/18/18) divalproex sodium (Verified Adverse Reaction, Mild, weight gain, 10/22/18) STEPHANIE BAZAN DO Oct 24, 2018 12:12
[2018-10-24] MEDS: NICOTINE POLACRILEX 2 MG GUM PO PRN ×3 (12:26→18:03)
[2018-10-24 14:44] VITALS: BP 140/88
[2018-10-24] MEDS: traZODone 50 MG TAB PO PRN (21:42)
[2018-10-25 06:43] VITALS: BP 124/68
[2018-10-25] MEDS: HumaLOG INSULIN (NovoLOG) PER UNIT SC SCH ×4 (06:55→20:18)
[2018-10-25] MEDS: SITagliptin 50 MG TAB (JANUVIA) PO SCH (08:32)
[2018-10-25] MEDS: LISINOPRIL 20 MG TAB PO SCH (08:33)
[2018-10-25] MEDS: TIOTROPIUM INHALER/CAPSULE (SPIRIVA) INH SCH (08:33)
[2018-10-25] MEDS: TAMSULOSIN 0.4 MG CAP PO SCH (08:33)
[2018-10-25] MEDS: PREGABALIN 100 MG CAP (LYRICA) PO SCH ×3 (08:33→20:18)
[2018-10-25] MEDS: DIVALPROEX 500 MG TAB PO SCH ×2 (08:33→20:17)
[2018-10-25] MEDS: PALIPERIDONE 3 MG ER TAB (INVEGA) PO SCH ×2 (08:33→20:17)
[2018-10-25] MEDS: metFORMIN (GLUCOPHAGE) 500 MG TAB PO SCH ×2 (08:33→16:57)
[2018-10-25] MEDS: ATORVASTATIN 10 MG TAB PO SCH (08:34)
[2018-10-25] MEDS: NICOTINE POLACRILEX 2 MG GUM PO PRN ×4 (08:34→18:15)
--- NOTE | 2018-10-25 10:06 | MHIPNPDOC ---
[facility] Progress Note Progress Note DATE OF SERVICE: 10/25/18 HISTORY: Patient is a 58 -year-old , male, who presented to the ED via [employer] from [facility] for a manic episode. upon arrival the bharti ice reported that he was making no logical sense during the ride to the hospital from [facility]. In the ED the patient was very disorganized, rambling about his father's dementia and its relevance to VHS and Beta tapes and other issues that were difficult to follow. He was oriented to person and place but it was difficult to discern if he was oriented to time due to his mental state at the time. He appeared manic in the ED and he has a known history of bipolar disorder. He was easily verbally agitated, he left his room multiple times, raised his voice and stated tat the [facility] staff were in disguise. He was reported to have very poor insight and judgment and appeared to be unsafe outside the hospital. On admission he was noted to be positive for delusions, denial, labile mood, ayesha, non-compliance, paranoia, psychosis, poor concentration, and erratic sleep. Attempted to speak with pt in his room with sitter present and pt states in rapid speech he was sent from [facility] after his father brought him for appt. States "he joke with lpn per diem... got angry in the ambulance and hurt my arm... All I need is my arm fixed which can be down out of here, my clothes, my shoes to go home today... I'm not staying." Pt started stand and I started progressively b/c he was getting more and more agitated after told he would get his shoes back today and would not leaving today. He is unpredictable aggressive and currently on 1:1 sitter with a strong man. Will restart depakote 500mg bid for mood stabilization, invega 3mg bid with plan for invega sustenna in the future with tolerance and benefit from oral use, zyprexa 10mg tid for ayesha/agitation. Pt is a very poor historian so history gathered from previous records. VITAL SIGNS: See below. NEW TEST RESULTS: See below. CURRENT MEDICATIONS: See below. MENTAL STATUS EXAMINATION: General Appearance: unkempt, appears stated age, hospital scrubs/clothing Build: overweight Demeanor: more cooperative, and pleasant Eye Contact: fair Activity: average Behavior: cooperative Speech: rapid Mood: anxious, elevated Thought Process: less tangental Thought Content (Delusions): less paranoid, grandiose Thought Content (Other): did not endorse threats made yesterday "I will slam my head thru to door to get out of here if I'm not discharged tomorrow!" jabbing his finger toward and verbally very aggressive. Pos SI and HI Thought Content (Aggressive): less aggressive (unpredictable) Perception (Hallucinations): none reported Perception (Other): derealization Cognition (Impairment of): unable to assess Cognition(Intelligence Est.): improving Oriented: Awake, Alert, Ox3 Insight: poor Judgment: Poor Psychosis: Abstract Thinking DIAGNOSES: Bipolar type 1 MRE acute ayesha and psychosis ASSESSMENT:Pt seen today and states he's doing "ok" today. Asked me to speak with who ever I need to for him to be discharged soon. He is very focused on discharge. He is compliant on his medications which appears beneficial as he is less paranoid, agitated, and threatening today. States he's tolerating it well. Yesterday pt "demanding to leave today stating something about his outpatient doc and medication that didn't make much sense. He was getting more and more agitated demanding to leave. Finally agreed to stay for today but threatened that "I will slam my head thru to door to get out of here if I'm not discharged tomorrow!" jabbing his finger toward and verbally very aggressive.: He less labile and reactive toward aggression and agitation. His insight and judgement are very poor. He has less psychomotor agitation, irritability, grandiose thoughts, paranoia with med use. Did not endorses SI and HI as per threats made yesterday (see above). MANAGEMENT PLAN: continue plan depakote 500mg bid invega 3mg bid haldol 10mg q4hr prn anxiety/agitation ativan 2mg q4hr prn anxiety/agitation TIME SPENT: 30 minutes. Vital Signs Vital Signs Date Time Temp Pulse Resp B/P (MAP) Pulse Ox O2 Delivery O2 Flow Rate FiO2 10/25/18 06:43 97.2 87 14 124/68 (86) 10/24/18 14:44 92 Laboratory Data 24H Labs Laboratory Tests 2 10/24/18 12:21: Bedside Glucose (Misc Panel) 131H 10/24/18 16:36: Bedside Glucose (Misc Panel) 109 10/24/18 20:12: Bedside Glucose (Misc Panel) 200H 10/25/18 06:16: Bedside Glucose (Misc Panel) 134H Current Medications Current Medications Medications (Trade) Dose Ordered Sig/Terrance Route PRN Reason Start Time Stop Time Status Last Admin Dose Admin Acetaminophen (Tylenol Tab) 650 mg Q6HP PRN PO PAIN / FEVER 10/18/18 17:00 10/24/18 02:42 Al Hydrox/Mg Hydrox/Simethicone (Mylanta) 30 ml Q4HP PRN PO HEARTBURN/INDIGESTION 10/18/18 14:30 10/24/18 11:02 Atorvastatin Calcium (Lipitor) 10 mg DAILY PO 10/19/18 09:00 10/25/18 08:34 Divalproex Sodium (Depakote) 500 mg BID PO 10/22/18 21:00 10/25/18 08:33 Glucagon (Glucagon) 1 mg ASDIRECTED PRN SC SEE LABEL COMMENTS 10/20/18 12:15 Glucose (Glucose) 16 GM ASDIRECTED PRN PO SEE LABEL COMMENTS 10/20/18 12:15 Haloperidol (Haldol) 10 mg Q4HP PRN PO ANXIETY/AGITATION 10/18/18 14:30 10/21/18 20:49 Home Med (Med Rec Complete!) ASDIRECTED XX 10/18/18 15:15 10/18/18 15:15 DC Insulin Human Lispro (HumaLOG INSULIN) See Protocol Table AC SC 10/20/18 12:00 10/25/18 06:55 Insulin Human Lispro (HumaLOG INSULIN) See Protocol Table QHS SC 10/20/18 21:00 Lisinopril (Prinivil) 20 mg DAILY PO 10/19/18 09:00 10/25/18 08:33 Lorazepam (Ativan) 2 mg Q4HP PRN PO ANXIETY/AGITATION 10/18/18 14:30 10/21/18 20:49 Magnesium Hydroxide (Milk Of Magnesia) 30 ml DAILYPRN PRN PO CONSTIPATION 10/18/18 14:30 Metformin HCl (Glucophage) 500 mg BID@0800,1800 PO 10/20/18 18:00 10/25/18 08:33 Miscellaneous (Unresolved Clarification Entry) SEE LABEL COMMENTS DAILY XX 10/24/18 09:00 10/24/18 15:09 DC Nicotine (Nicorette) 2 mg Q2HP PRN PO SMOKING CESSATION 10/19/18 11:45 10/25/18 08:34 Paliperidone (Invega) 3 mg QAM PO 10/23/18 09:00 10/25/18 08:33 Paliperidone (Invega) 3 mg QHS PO 10/22/18 21:00 10/24/18 20:12 Pregabalin (Lyrica) 100 mg TID PO 10/19/18 16:00 10/25/18 08:33 Sitagliptin Phosphate (Januvia) 100 mg DAILY PO 10/20/18 09:00 10/25/18 08:32 Tamsulosin HCl (Flomax) 0.8 mg DAILY PO 10/19/18 09:00 10/25/18 08:33 Tiotropium [place] (Spiriva Handihaler) 1 inhalation DAILY INH 10/20/18 09:00 10/25/18 08:33 Trazodone HCl (Desyrel) 50 mg QHSP PRN PO INSOMNIA 10/18/18 14:30 10/24/18 21:42 Allergies Coded Allergies: Penicillins (Verified Allergy, Intermediate, rash, 10/18/18) haloperidol (Verified Adverse Reaction, Intermediate, "crazy", 10/18/18) zolpidem (Verified Adverse Reaction, Intermediate, "crazy", 10/18/18) divalproex sodium (Verified Adverse Reaction, Mild, weight gain, 10/22/18) STEPHANIE BAZAN DO Oct 25, 2018 9:30 am
[2018-10-25 11:11] LABS: ALBUMIN 3.9 GM/DL (3.2-5.2); ALT/SGPT 48 U/L (12-78); BILIRUBIN,TOTAL 0.4 MG/DL (0.2-1.0); BLOOD UREA NITROGEN 11 MG/DL (7-18); CALCIUM LEVEL 9.5 MG/DL (8.8-10.2); CARBON DIOXIDE LEVEL 25 MEQ/L (21-32); CHLORIDE LEVEL 104 MEQ/L (98-107); CREATININE FOR GFR 0.78 MG/DL (0.70-1.30); GLOMERULAR FILTRATION RATE > 60.0 (>49); GLUCOSE, FASTING 142 MG/DL (70-100); POTASSIUM SERUM 4.4 MEQ/L (3.5-5.1); SODIUM LEVEL 138 MEQ/L (136-145); TOTAL PROTEIN 6.9 GM/DL (6.4-8.2); VALPROIC ACID (DEPAKOTE) 50.6 UG/ML (50.0-100.0)
[2018-10-25 18:00] VITALS: BP 152/87
[2018-10-25] MEDS: traZODone 50 MG TAB PO PRN (20:17)
[2018-10-26] MEDS: NICOTINE POLACRILEX 2 MG GUM PO PRN (00:07)
[2018-10-26] MEDS: LORazepam 1 MG TAB PO PRN (00:07)
[2018-10-26 06:33] VITALS: BP 139/82
[2018-10-26] MEDS: HumaLOG INSULIN (NovoLOG) PER UNIT SC SCH (06:53)
[2018-10-26] MEDS ORDERED: DEPA1TAB3 PO (08:44)
[2018-10-26] MEDS ORDERED: PALI1TAB2 PO (08:44)
[2018-10-26] MEDS ORDERED: TRAZ-252 PO (08:44)
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
[2018-10-26] MEDS: TIOTROPIUM INHALER/CAPSULE (SPIRIVA) INH SCH (09:49)
[2018-10-26 09:50] VITALS: BP 140/83
[2018-10-26] MEDS: metFORMIN (GLUCOPHAGE) 500 MG TAB PO SCH (09:50)
[2018-10-26] MEDS: LISINOPRIL 20 MG TAB PO SCH (09:50)
[2018-10-26] MEDS: ATORVASTATIN 10 MG TAB PO SCH (09:51)
[2018-10-26] MEDS: DIVALPROEX 500 MG TAB PO SCH (09:51)
[2018-10-26] MEDS: PALIPERIDONE 3 MG ER TAB (INVEGA) PO SCH (09:51)
[2018-10-26] MEDS: TAMSULOSIN 0.4 MG CAP PO SCH (09:52)
[2018-10-26] MEDS: SITagliptin 50 MG TAB (JANUVIA) PO SCH (09:52)
[2018-10-26] MEDS: PREGABALIN 100 MG CAP (LYRICA) PO SCH (09:52)
[2018-10-26] MEDS ORDERED: INVE6TAB3 PO (10:13)
== END 2018-10-26 11:04 | disposition home or self-care (01) | DRG 885 ==
LOC: M ED 10:28 → M ED INP 14:17 → M PSY 15:15
PROVIDERS: ADMIT Psychiatry & Neurology Psychiatry; ATTEND Psychiatry & Neurology Psychiatry
DX: F31.2 Bipolar disorder, current episode manic severe with psychotic features (principal); Z88.0 Allergy status to penicillin; Z88.8 Allergy status to other drugs, medicaments and biological substances; E78.5 Hyperlipidemia, unspecified; I10 Essential (primary) hypertension; N40.0 Benign prostatic hyperplasia without lower urinary tract symptoms; J44.9 Chronic obstructive pulmonary disease, unspecified; M54.5 Low back pain; M54.2 Cervicalgia; E11.9 Type 2 diabetes mellitus without complications; K21.9 Gastro-esophageal reflux disease without esophagitis; Z79.899 Other long term (current) drug therapy; Z87.442 Personal history of urinary calculi

== ENCOUNTER → 2019-06-18 | Outpatient (CLI) | payer MEDICARE ==
[~2019-06-18] MED LIST changes: +DEPA1TAB3 PO; +JANU100T PO; -LAMO100T PO; +LAMO100T3 PO; +LISI-538 PO; +METF10004 PO; +OMEP-218 PO; +PALI1TAB2 PO; +POTA10808 PO; +PREG100CA PO; +SPIR1CAP INH; +TRAZ-252 PO; +VRAY3CAP PO
== END ==
LOC: M LABSMTC 14:27
PROVIDERS: ATTEND Anesthesiology
DX: Z01.818 Encounter for other preprocedural examination (principal); Z11.59 Encounter for screening for other viral diseases

== ENCOUNTER 2019-06-24 19:38 | Inpatient (IN) | payer MEDICARE ==
[~2019-06-24] VITALS: Ht 170.2 cm; Wt 76.0 kg
[~2019-06-24 19:38] MED LIST changes: -OMEP-218 PO; -POTA10808 PO
[2019-06-24] MEDS ORDERED: POTA10808 PO (19:57)
[2019-06-24] MEDS ORDERED: OMEP-218 PO (19:57)
[2019-06-24] MEDS ORDERED: JANU100T PO (19:57)
[2019-06-24] MEDS ORDERED: MAALOX 30 ML SUSP *UDC PO PRN (22:00)
[2019-06-24] MEDS ORDERED: MOM 30ML SUSPENSION UDC PO PRN (22:00)
[2019-06-24] MEDS ORDERED: lisinopriL 20 MG TAB PO ONE (22:45)
[2019-06-25] MEDS: traZODone 50 MG TAB PO PRN ×2 (00:20→20:13)
[2019-06-25] MEDS: ATORVASTATIN 10 MG TAB PO SCH ×2 (00:20→20:13)
[2019-06-25 00:23] VITALS: BP 142/90
[2019-06-25 06:27] VITALS: BP 148/88
[2019-06-25] MEDS: TIOTROPIUM INHALER/CAPSULE (SPIRIVA) INH SCH (07:34)
[2019-06-25] MEDS: metFORMIN (GLUCOPHAGE) 1000 MG TABLET PO SCH ×2 (07:34→17:36)
[2019-06-25] MEDS ORDERED: metFORMIN (GLUCOPHAGE) 500 MG TAB PO SCH (08:00)
[2019-06-25] MEDS: lisinopriL 20 MG TAB PO SCH (08:49)
[2019-06-25] MEDS: TAMSULOSIN 0.4 MG CAP PO SCH (08:49)
[2019-06-25] MEDS: SITagliptin 50 MG TAB (JANUVIA) PO SCH (08:50)
[2019-06-25] MEDS: OMEPRAZOLE 20 MG CAP PO SCH (08:50)
[2019-06-25] MEDS ORDERED: TAMSULOSIN 0.4 MG CAP PO SCH (09:00)
[2019-06-25 09:20] LABS: ALBUMIN 3.5 GM/DL (3.2-5.2); ALT/SGPT 21 U/L (12-78); BILIRUBIN,TOTAL 0.9 MG/DL (0.2-1.0); BLOOD UREA NITROGEN 6 MG/DL (7-18); CALCIUM LEVEL 8.6 MG/DL (8.8-10.2); CARBON DIOXIDE LEVEL 30 MEQ/L (21-32); CHLORIDE LEVEL 106 MEQ/L (98-107); CHOLESTEROL LEVEL 122 MG/DL (<200); CHOLESTEROL RISK RATIO 3.388 (<5); CREATININE FOR GFR 0.66 MG/DL (0.70-1.30); GLOMERULAR FILTRATION RATE > 60.0 (>49); GLUCOSE, FASTING 98 MG/DL (70-100); HDL CHOLESTEROL 36 MG/DL (>40); LDL CHOLESTEROL 65 MG/DL (<100); NON-HDL-C 86 MG/DL; POTASSIUM SERUM 3.8 MEQ/L (3.5-5.1); SODIUM LEVEL 142 MEQ/L (136-145); THYROID STIMULATING HORMONE 0.654 uIU/ML (0.358-3.740); TOTAL PROTEIN 6.4 GM/DL (6.4-8.2); TRIGLYCERIDES LEVEL 104 MG/DL (<150)
--- NOTE | 2019-06-25 09:24 | MHHPEPDOC ---
[facility] History & Physical History and Physical DATE OF ADMISSION: June 24, 2019 at 21:58 New Patient Kevin Olivera MRN: N/A Date of : N/A Date of Service: 06/25/2019 Chief Complaint "I need my medication changed." History of Present Illness The patient, a 58-year-old man, presents after becoming increasingly bizarre and paranoid. He has a history of bipolar disorder and had recently been changed on his medications. He was on Vraylar, but reports that he had subsequently become more worried and anxious. Unfortunately he is not able to relay a complex h istory as he is able to only answer questions that are quite simple being quite psychotic and disorganized. Review Of Systems Unable to obtain due to mental status. Past Psychiatric History Has a history of bipolar disorder, last admitted several months ago. Currently on Vraylar 4.5 mg daily, tried on multiple previous antipsychotics including Invega. Follows up with [facility] Allergies Please see below. Family Psychiatric History Unclear. Social History Patient lives with family members who generally protect him from interacting from the mental healthcare system. He has no notable history, is disabled by his condition and currently does not work. Substance Abuse History No notable history. Toxicology non-contributory on presentation. Medical History Age related cardiometabolic comorbidities. Mental Status Examination General: Fair hygiene Speech: Paucity of speech Thought processes: Somewhat circumstantial MSK: Smooth and coordinated gait, no signs of tremors or involuntary orofacial movements Thought content: Paucity of thought Abstract reasoning, and computation: Intact Description of associations: Impaired Description of abnormal or psychotic thoughts: Denies overt unusual thoughts, but appears to be responding to internal stimuli at times. Judgment: Limited Insight: Limited Orientation: Alert and orientated 3 Cognition: Grossly normal Recent and remote memory: Intact Attention span and concentration: Intact Fund of knowledge: Adequate Mood: "okay" Affect: Flat Diagnoses Schizoaffective disorder, bipolar type, most recent episode depressed. Assessment and Plan Schizoaffective disorder: Increase Vraylar to 4.5 mg daily, previously on 3 mg. Disposition Patient will need a further inpatient admission likely extended tomorrow as his improvement is not anticipated. Problem List 1. Altered thoughts. Initial Treatment Plan 1. Patient was admitted on a 9.39 legal status. 2. Complete history was obtained. 3. With patients permission, family will be contacted and database will be expanded. 4. Patients medication regimen will be reviewed and changed accordingly. 5. Patient will be provided with protected environment. 6. Patient will be treated with individual, group, and milieu therapies. 7. Patient will receive supportive psych-education. 8. Discharge planning will commence immediately. 9. Outpatient follow-up treatment will be strongly recommended. 10. The initial treatment plan will focus initially on: Estimated Length Of Stay 3 days. Time Spent 70 minutes with greater than 50% of time spent on counseling/coordination of care. Monday Vital Signs Vital Signs Date Time Temp Pulse Resp B/P (MAP) Pulse Ox O2 Delivery O2 Flow Rate FiO2 06/25/19 08:49 154/90 06/25/19 06:27 98.2 66 14 Room Air 06/24/19 22:12 95 Laboratory Data 24H Labs Laboratory Tests 2 06/25/19 08:24: Anion Gap 6L, Glomerular Filtration Rate > 60.0, Calcium Level 8.6L, Total Bilirubin 0.9, Aspartate Amino Transf (AST/SGOT) 7, Alanine Aminotransferase (ALT/SGPT) 21, Alkaline Phosphatase 73, Total Protein 6.4, Albumin 3.5, Albumin/Globulin Ratio 1.21, Triglycerides Level 104, Total Cholesterol 122, LDL Cholesterol 65, Non-HDL Cholesterol (LDL + VLDL) 86, Total HDL Cholesterol 36L, Cholesterol/HDL Ratio 3.388, Thyroid Stimulating Hormone (TSH) 0.654 CBC/BMP Laboratory Tests 06/25/19 08:24 Medications Scheduled Atorvastatin Calcium (Atorvastatin Calcium) 10 Mg Tab, 10 MG PO DAILY for CHO LESTEROL, (Reported) Cariprazine HCl (Vraylar) 3 Mg Capsule, 3 MG PO DAILY, (Reported) Lisinopril (Lisinopril) 20 Mg Tablet, 20 MG PO DAILY, (Reported) Metformin HCl (Metformin HCl) 1,000 Mg Tablet, 1,000 MG PO BID, (Reported) Omeprazole (Omeprazole) 20 Mg Capsule.dr, 20 MG PO DAILY, (Reported) Sitagliptin Phosphate (Januvia) 100 Mg Tablet, 100 MG PO DAILY, (Reported) Tamsulosin HCl (Flomax) 0.4 Mg Cap, 0.4 MG PO DAILY, (Reported) Tiotropium [place] (Spiriva) 18 Mcg Cap.w.dev, 18 MCG INH DAILY, (Reported) Allergies Coded Allergies: Penicillins (Verified Allergy, Intermediate, rash, 10/18/18) haloperidol (Verified Adverse Reaction, Intermediate, "crazy", 10/18/18) zolpidem (Verified Adverse Reaction, Intermediate, "crazy", 10/18/18) divalproex sodium (Verified Adverse Reaction, Mild, weight gain, 10/22/18) A-FIB/CHADSVASC A-FIB History Current/History of A-Fib/PAF?: NACHO Friend DO June 25, 2019 09:24
[2019-06-25 09:48] LABS: HEMOGLOBIN A1c 4.9 %
[2019-06-25] MEDS: CARIPRAZINE 1.5MG CAPSULE (VRAYLAR) PO SCH (11:28)
[2019-06-25 16:06] VITALS: BP 140/77
[2019-06-26 06:32] VITALS: BP 127/70
[2019-06-26] MEDS: TIOTROPIUM INHALER/CAPSULE (SPIRIVA) INH SCH (07:43)
[2019-06-26] MEDS: metFORMIN (GLUCOPHAGE) 1000 MG TABLET PO SCH ×2 (08:00→17:26)
[2019-06-26] MEDS: SITagliptin 50 MG TAB (JANUVIA) PO SCH (09:00)
[2019-06-26] MEDS: lisinopriL 20 MG TAB PO SCH (09:07)
[2019-06-26] MEDS: TAMSULOSIN 0.4 MG CAP PO SCH (09:07)
[2019-06-26] MEDS: OMEPRAZOLE 20 MG CAP PO SCH (09:07)
[2019-06-26] MEDS: CARIPRAZINE 1.5MG CAPSULE (VRAYLAR) PO SCH (09:07)
--- NOTE | 2019-06-26 09:38 | HPE ---
DATE OF ADMISSION: 06/24/2019 CHIEF COMPLAINT: Patient is in inpatient mental health unit due to psychosis HISTORY OF PRESENT ILLNESS: 58-year-old male with history of chronic back pain, diabetes, hypertension, dyslipidemia, chronic obstructive pulmonary disease (COPD), bipolar, Benign prostatic hypertrophy (BPH), chronic pelvic and perianal pain admitted to inpatient mental health unit due to psychosis with history of bipolar disorder with manic episodes and depression. The patient is cooperative this morning. Says, "I am going home today". He otherwise denies any fever, chills, sore throat, chest pain, pressure, tightness, shortness of breath, dizziness, lightheadedness, nausea, vomiting, diarrhea, abdominal pain, dysuria, urgency, frequency, polyuria, polydipsia, weight gain, weight loss, changes in appetite, upper or lower extremity weakness, paresthesias, He does have a history of chronic ayesha, depression and bipolar disorder. PAST MEDICAL HISTORY: Chronic obstructive pulmonary disease (COPD) Hypertension. Dyslipidemia. Chronic back pain. Chronic pelvic, perianal pain. Diabetes. Bipolar disorder. Benign prostate hypertrophy (BPH). ALLERGIES: PENICILLIN, VALPROIC ACID, HALDOL and ZOLPIDEM. CURRENT MEDICATIONS: - Abilify 5 twice a day - lisinopril 20 daily - Prilosec 20 daily - Januvia 100 daily - Flomax 0.4 daily - Spiriva inhaled daily - metformin 1 gram twice a day - Zyprexa 5 mg every 6 hours as needed for anxiety or depression. - trazodone 50 mg nightly as needed - Tylenol 650 every 6 hours as needed - Milk of Magnesia 30 mL daily as needed - Mylanta 30 mL by mouth every 4 hours as needed - Lipitor 10 mg nightly PAST SURGICAL HISTORY: Lithotripsy Partial discectomy C5, C6. Knee replacement Cartilage removal in bilateral knees. SOCIAL HISTORY: Patient denies alcohol use or illicit drug use. He is a [employer]. Still smokes cigarettes. FAMILY HISTORY: Noncontributory. REVIEW OF SYSTEMS: Per the history of present illness (HPI). 12-point system otherwise negative. PHYSICAL EXAMINATION: Temperature 98.2, pulse 66, respiratory rate 14, blood pressure 148/88, 95% on room air. Generally, patient is awake, alert, oriented to person place and time answering questions appropriately. No icterus or jaundice. No jugular venous distention (JVD) and no thyromegaly. No cervical lymphadenopathy. Lungs are clear to auscultation. No wheezing, rales or rhonchi. Heart: S1, S2, sinus rhythm. Abdomen is soft, nontender, nondistended, positive bowel sounds. Extremities: No cyanosis, clubbing or pitting edema. LABORATORY DATA: Pending. ASSESSMENT/PLAN: 58-year-old male with history of diabetes, hypertension, hyperlipidemia, body mass index (BMI) 29, bipolar disorder, BPH, chronic pelvic and perianal pain, back pain, admitted to inpatient mental health unit due to psychosis with history of bipolar disorder, ayesha and depression. Patient is currently not complaining of any medical issues. IMPRESSION: 1. Psychosis with history of bipolar disorder with history of ayesha and depression. Patient is stable currently and managed by psychiatrist. 2. Diabetes: Check A1c. Continue on diabetic diet, sliding scale via [facility] protocol. 3. Dyslipidemia: Check lipid panel. Continue on Lipitor. 4. Hypertension: Continue on home dose of lisinopril 5. BPH: Continue on Flomax. 6. GERD continue on Prilosec. 7. Insomnia continue on trazodone as needed. 8. Chronic back pain: Tylenol as needed. MTDD
--- NOTE | 2019-06-26 10:00 | MHIPNPDOC ---
[facility] Progress Note Progress Note Inpatient Progress Note Kevin Olivera MRN: N/A Date of : N/A Date of Service: 06/26/2019 History of Present Illness The patient, a 58-year-old man, presents after becoming increasingly bizarre and paranoid. He has a history of bipolar disorder and had recently been changed on his medications. He was on Vraylar, but reports that he had subsequently become more worried and anxious. Unfortunately he is not able to relay a complex h istory as he is able to only answer questions that are quite simple being quite psychotic and disorganized. Interval History The patient is met with today. He is still quite bizarre and says very little during the discussion. He denies grossly any symptom problems and generally makes a little effort to interact. He has been bizarre on the unit calling various family members to attempt to pick him up. Review Of Systems Denies grossly all review of systems. Psychotherapy None on this visit. Vital Signs Reviewed. Mental Status Examination General: Fair hygiene Speech: Paucity of speech Thought processes: Somewhat circumstantial MSK: Smooth and coordinated gait, no signs of tremors or involuntary orofacial movements Thought content: Paucity of thought Abstract reasoning, and computation: Intact Description of associations: Impaired Description of abnormal or psychotic thoughts: Denies overt unusual thoughts, but appears to be responding to internal stimuli at times. Judgment: Limited Insight: Limited Orientation: Alert and orientated 3 Cognition: Grossly normal Recent and remote memory: Intact Attention span and concentration: Intact Fund of knowledge: Adequate Mood: "okay" Affect: Flat Diagnoses Schizoaffective disorder, bipolar type, most recent episode depressed. Assessment and Plan Schizoaffective disorder: Continue Vraylar 4.5 mg daily. Disposition Patient will need further inpatient admission due to severely impairing psychosis. We will need to ascertain baseline better before discharge. Time Spent 15 minutes. Monday Vital Signs Vital Signs Date Time Temp Pulse Resp B/P (MAP) Pulse Ox O2 Delivery O2 Flow Rate FiO2 06/26/19 09:07 126/71 06/26/19 06:32 97.8 77 14 06/25/19 06:27 Room Air 06/24/19 22:12 95 Current Medications Current Medications Medications (Trade) Dose Ordered Sig/Terrance Route PRN Reason Start Time Stop Time Status Last Admin Dose Admin Acetaminophen (Tylenol Tab) 650 mg Q6HP PRN PO HEADACHE or DISCOMFORT 06/24/19 22:00 Al Hydrox/Mg Hydrox/Simethicone (Mylanta) 30 ml Q4HP PRN PO HEARTBURN/INDIGESTION 06/24/19 22:00 Aripiprazole (AbiLIFY) 5 mg BID PO 06/25/19 09:00 06/25/19 10:33 DC 06/25/19 08:49 Atorvastatin Calcium (Lipitor) 10 mg QPM PO 06/24/19 21:00 06/25/19 20:13 Cariprazine (Vraylar) 4.5 mg DAILY PO 06/25/19 10:45 06/26/19 09:07 Home Med (Med Rec Complete!) ASDIRECTED XX 06/24/19 22:45 06/24/19 22:46 DC Lisinopril (Prinivil) 20 mg DAILY PO 06/25/19 09:00 06/26/19 09:07 Magnesium Hydroxide (Milk Of Magnesia) 30 ml DAILYPRN PRN PO CONSTIPATION 06/24/19 22:00 Metformin HCl (Glucophage) 500 mg BID@08,18 PO 06/25/19 08:00 06/24/19 23:07 DC Metformin HCl (Glucophage) 1,000 mg BID@08,18 PO 06/25/19 08:00 06/25/19 17:36 Olanzapine (ZyPREXA ZYDIS) 5 mg Q6HP PRN PO ANXIETY/AGITATION 06/24/19 23:00 Omeprazole (PriLOSEC) 20 mg DAILY PO 06/25/19 09:00 06/26/19 09:07 Sitagliptin Phosphate (Januvia) 100 mg DAILY PO 06/25/19 09:00 06/25/19 08:50 Tamsulosin HCl (Flomax) 0.4 mg DAILY PO 06/25/19 09:00 06/26/19 09:07 Tamsulosin HCl (Flomax) 0.8 mg DAILY PO 06/25/19 09:00 06/24/19 23:07 DC Tiotropium [place] (Spiriva Handihaler) 1 inhalation DAILY@08 INH 06/25/19 08:00 06/26/19 07:43 Trazodone HCl (Desyrel) 50 mg QHSP PRN PO INSOMNIA 06/24/19 22:00 06/25/19 20:13 Allergies Coded Allergies: Penicillins (Verified Allergy, Intermediate, rash, 10/18/18) haloperidol (Verified Adverse Reaction, Intermediate, "crazy", 10/18/18) zolpidem (Verified Adverse Reaction, Intermediate, "crazy", 10/18/18) divalproex sodium (Verified Adverse Reaction, Mild, weight gain, 10/22/18) NACHO MOE DO June 26, 2019 10:00
[2019-06-26 16:05] VITALS: BP 108/58
[2019-06-26] MEDS: ATORVASTATIN 10 MG TAB PO SCH (20:08)
[2019-06-27] MEDS: traZODone 50 MG TAB PO PRN ×2 (01:30→20:49)
[2019-06-27 06:38] VITALS: BP 139/83
[2019-06-27] MEDS: metFORMIN (GLUCOPHAGE) 500 MG TAB PO SCH (07:47)
[2019-06-27] MEDS: TIOTROPIUM INHALER/CAPSULE (SPIRIVA) INH SCH (07:47)
[2019-06-27] MEDS: TAMSULOSIN 0.4 MG CAP PO SCH (08:44)
[2019-06-27] MEDS: OMEPRAZOLE 20 MG CAP PO SCH (08:45)
[2019-06-27] MEDS: lisinopriL 20 MG TAB PO SCH (08:45)
--- NOTE | 2019-06-27 09:55 | MHIPNPDOC ---
[facility] Progress Note Progress Note Inpatient Progress Note Kevin Olivera MRN: N/A Date of : N/A Date of Service: 06/27/2019 History of Present Illness The patient, a 58-year-old man, presents after becoming increasingly bizarre and paranoid. He has a history of bipolar disorder and had recently been changed on his medications. He was on Vraylar, but reports that he had subsequently become more worried and anxious. Unfortunately he is not able to relay a complex hi story as he is able to only answer questions that are quite simple being quite psychotic and disorganized. Interval History The patient was met with today. He generally mimics the majority of statements made today and provides no meaningful interview. However, the patient has had significant diarrhea and loose bowel movements. However, he does not allude to this and is quite bizarre. Nurses report the patient is still bizarre calling various people and obsessed with the phone. Review Of Systems Unable to obtain due to mental status. Psychotherapy None on this visit. Vital Signs Reviewed. Mental Status Examination General: Fair hygiene Speech: Paucity of speech Thought processes: Somewhat circumstantial MSK: Smooth and coordinated gait, no signs of tremors or involuntary orofacial movements Thought content: Paucity of thought Abstract reasoning, and computation: Intact Description of associations: Impaired Description of abnormal or psychotic thoughts: Denies overt unusual thoughts, but appears to be responding to internal stimuli at times. Judgment: Limited Insight: Limited Orientation: Alert and orientated 3 Cognition: Grossly normal Recent and remote memory: Intact Attention span and concentration: Intact Fund of knowledge: Adequate Mood: "okay" Affect: Flat Diagnoses Schizoaffective disorder, bipolar type, most recent episode depressed. Assessment and Plan Schizoaffective disorder: Discontinue Vraylar as likely unhelpful. Start clozapine 12.5 mg daily. ANC normal on admission. Disposition Patient will need a further involuntary admission as he is so quite, psychotic and distorted, completely unable to engage in a meaningful discussion. Time Spent 15 minutes. Vital Signs Vital Signs Date Time Temp Pulse Resp B/P (MAP) Pulse Ox O2 Delivery O2 Flow Rate FiO2 06/27/19 08:45 136/90 06/27/19 06:38 98.1 88 14 06/25/19 06:27 Room Air 06/24/19 22:12 95 Laboratory Data 24H Labs Laboratory Tests 2 06/26/19 17:06: Bedside Glucose (Misc Panel) 85 Current Medications Current Medications Medications (Trade) Dose Ordered Sig/Terrance Route PRN Reason Start Time Stop Time Status Last Admin Dose Admin Acetaminophen (Tylenol Tab) 650 mg Q6HP PRN PO HEADACHE or DISCOMFORT 06/24/19 22:00 Al Hydrox/Mg Hydrox/Simethicone (Mylanta) 30 ml Q4HP PRN PO HEARTBURN/INDIGESTION 06/24/19 22:00 Aripiprazole (AbiLIFY) 5 mg BID PO 06/25/19 09:00 06/25/19 10:33 DC 06/25/19 08:49 Atorvastatin Calcium (Lipitor) 10 mg QPM PO 06/24/19 21:00 06/26/19 20:08 Cariprazine (Vraylar) 4.5 mg DAILY PO 06/25/19 10:45 06/26/19 09:07 Home Med (Med Rec Complete!) ASDIRECTED XX 06/24/19 22:45 06/24/19 22:46 DC Lisinopril (Prinivil) 20 mg DAILY PO 06/25/19 09:00 06/27/19 08:45 Magnesium Hydroxide (Milk Of Magnesia) 30 ml DAILYPRN PRN PO CONSTIPATION 06/24/19 22:00 Metformin HCl (Glucophage) 500 mg BID@, PO 06/25/19 08:00 06/24/19 23:07 DC Metformin HCl (Glucophage) 500 mg DAILY@08 PO 06/27/19 08:00 06/27/19 07:47 Metformin HCl (Glucophage) 1,000 mg BID@,18 PO 06/25/19 08:00 06/27/19 07:10 DC 06/26/19 17:26 Olanzapine (ZyPREXA ZYDIS) 5 mg Q6HP PRN PO ANXIETY/AGITATION 06/24/19 23:00 Omeprazole (PriLOSEC) 20 mg DAILY PO 06/25/19 09:00 06/27/19 08:45 Sitagliptin Phosphate (Januvia) 100 mg DAILY PO 06/25/19 09:00 06/26/19 15:49 DC 06/25/19 08:50 Tamsulosin HCl (Flomax) 0.4 mg DAILY PO 06/25/19 09:00 06/27/19 08:44 Tamsulosin HCl (Flomax) 0.8 mg DAILY PO 06/25/19 09:00 06/24/19 23:07 DC Tiotropium [place] (Spiriva Handihaler) 1 inhalation DAILY@08 INH 06/25/19 08:00 06/27/19 07:47 Trazodone HCl (Desyrel) 50 mg QHSP PRN PO INSOMNIA 06/24/19 22:00 06/27/19 01:30 Allergies Coded Allergies: Penicillins (Verified Allergy, Intermediate, rash, 10/18/18) haloperidol (Verified Adverse Reaction, Intermediate, "crazy", 10/18/18) zolpidem (Verified Adverse Reaction, Intermediate, "crazy", 10/18/18) divalproex sodium (Verified Adverse Reaction, Mild, weight gain, 10/22/18) NACHO MOE DO June 27, 2019 09:55
[2019-06-27 16:24] VITALS: BP 120/60
[2019-06-27] MEDS: ATORVASTATIN 10 MG TAB PO SCH (20:49)
[2019-06-27] MEDS: cloZAPine 25 MG TAB (S0136) PO SCH (20:49)
[2019-06-28 06:32] VITALS: BP_SYST 114; BP_SYST 128; BP_DIAS 54; BP_DIAS 80
[2019-06-28] MEDS: TIOTROPIUM INHALER/CAPSULE (SPIRIVA) INH SCH (07:45)
[2019-06-28] MEDS: metFORMIN (GLUCOPHAGE) 500 MG TAB PO SCH (07:45)
[2019-06-28] MEDS: OMEPRAZOLE 20 MG CAP PO SCH (08:51)
[2019-06-28] MEDS: TAMSULOSIN 0.4 MG CAP PO SCH (08:51)
[2019-06-28] MEDS: lisinopriL 20 MG TAB PO SCH (08:51)
--- NOTE | 2019-06-28 09:13 | MHIPNPDOC ---
[facility] Progress Note Progress Note Inpatient Progress Note Kevin Olivera MRN: N/A Date of : N/A Date of Service: 06/28/2019 History of Present Illness The patient, a 58-year-old man, presents after becoming increasingly bizarre and paranoid. He has a history of bipolar disorder and had recently been changed on his medications. He was on Vraylar, but reports that he had subsequently become more worried and anxious. Unfortunately he is not able to relay a complex hi story as he is able to only answer questions that are quite simple being quite psychotic and disorganized. Interval History The patient is met with today. He is still quite bizarre and unusual. Stating that he is "good" but is unable to explain any other treatment on presentation. He has been wandering around without pants today, fairly confused. Review Of Systems Reports improvement in back pain, however, does not endorse any other problem. Psychotherapy None on this visit. Vital Signs Reviewed. Mental Status Examination General: Fair hygiene Speech: Paucity of speech Thought processes: Somewhat circumstantial MSK: Smooth and coordinated gait, no signs of tremors or involuntary orofacial movements Thought content: Paucity of thought Abstract reasoning, and computation: Intact Description of associations: Impaired Description of abnormal or psychotic thoughts: Denies overt unusual thoughts, but appears to be responding to internal stimuli at times. Judgment: Limited Insight: Limited Orientation: Alert and orientated 3 Cognition: Grossly normal Recent and remote memory: Intact Attention span and concentration: Intact Fund of knowledge: Adequate Mood: "okay" Affect: Flat Diagnoses Schizoaffective disorder, bipolar type, most recent episode depressed. Assessment and Plan Schizoaffective disorder: Continue clozapine 12.5 mg daily. Disposition Patient will need a further involuntary admission as he is so quite, psychotic and distorted, completely unable to engage in a meaningful discussion. Time Spent 15 minutes. Monday Vital Signs Vital Signs Date Time Temp Pulse Resp B/P (MAP) Pulse Ox O2 Delivery O2 Flow Rate FiO2 06/28/19 08:51 130/80 06/28/19 08:30 Room Air 06/28/19 06:32 97.9 60 14 97 Laboratory Data 24H Labs Laboratory Tests 2 06/27/19 16:32: Bedside Glucose (Misc Panel) 87 06/28/19 05:54: Bedside Glucose (Misc Panel) 93 Current Medications Current Medications Medications (Trade) Dose Ordered Sig/Terrance Route PRN Reason Start Time Stop Time Status Last Admin Dose Admin Acetaminophen (Tylenol Tab) 650 mg Q6HP PRN PO HEADACHE or DISCOMFORT 06/24/19 22:00 Al Hydrox/Mg Hydrox/Simethicone (Mylanta) 30 ml Q4HP PRN PO HEARTBURN/INDIGESTION 06/24/19 22:00 Aripiprazole (AbiLIFY) 5 mg BID PO 06/25/19 09:00 06/25/19 10:33 DC 06/25/19 08:49 Atorvastatin Calcium (Lipitor) 10 mg QPM PO 06/24/19 21:00 06/27/19 20:49 Cariprazine (Vraylar) 4.5 mg DAILY PO 06/25/19 10:45 06/27/19 11:39 DC 06/26/19 09:07 Clozapine (Clozaril) 12.5 mg QHS PO 06/27/19 21:00 06/27/19 20:49 Home Med (Med Rec Complete!) ASDIRECTED XX 06/24/19 22:45 06/24/19 22:46 DC Lisinopril (Prinivil) 20 mg DAILY PO 06/25/19 09:00 06/28/19 08:51 Magnesium Hydroxide (Milk Of Magnesia) 30 ml DAILYPRN PRN PO CONSTIPATION 06/24/19 22:00 Metformin HCl (Glucophage) 500 mg BID@08,18 PO 06/25/19 08:00 06/24/19 23:07 DC Metformin HCl (Glucophage) 500 mg DAILY@08 PO 06/27/19 08:00 06/28/19 07:45 Metformin HCl (Glucophage) 1,000 mg BID@08,18 PO 06/25/19 08:00 06/27/19 07:10 DC 06/26/19 17:26 Olanzapine (ZyPREXA ZYDIS) 5 mg Q6HP PRN PO ANXIETY/AGITATION 06/24/19 23:00 Omeprazole (PriLOSEC) 20 mg DAILY PO 06/25/19 09:00 06/28/19 08:51 Sitagliptin Phosphate (Januvia) 100 mg DAILY PO 06/25/19 09:00 06/26/19 15:49 DC 06/25/19 08:50 Tamsulosin HCl (Flomax) 0.4 mg DAILY PO 06/25/19 09:00 06/28/19 08:51 Tamsulosin HCl (Flomax) 0.8 mg DAILY PO 06/25/19 09:00 06/24/19 23:07 DC Tiotropium [place] (Spiriva Handihaler) 1 inhalation DAILY@08 INH 06/25/19 08:00 06/28/19 07:45 Trazodone HCl (Desyrel) 50 mg QHSP PRN PO INSOMNIA 06/24/19 22:00 06/27/19 20:49 Allergies Coded Allergies: Penicillins (Verified Allergy, Intermediate, rash, 10/18/18) haloperidol (Verified Adverse Reaction, Intermediate, "crazy", 10/18/18) zolpidem (Verified Adverse Reaction, Intermediate, "crazy", 10/18/18) divalproex sodium (Verified Adverse Reaction, Mild, weight gain, 10/22/18) NACHO MOE DO June 28, 2019 09:13
[2019-06-28 16:06] VITALS: BP 121/75
[2019-06-28] MEDS: cloZAPine 25 MG TAB (S0136) PO SCH (21:00)
[2019-06-28] MEDS: ATORVASTATIN 10 MG TAB PO SCH (21:00)
[2019-06-28] MEDS: traZODone 50 MG TAB PO PRN (21:00)
[2019-06-28] MEDS: PILL CUTTER 1 EACH XX PRN (21:00)
[2019-06-29 02:27] VITALS: BP 95/50
[2019-06-29 02:42] VITALS: BP 102/55
[2019-06-29 02:57] VITALS: BP 128/72
--- NOTE | 2019-06-29 03:24 | IPNPDOC ---
Text Note Date of Service The patient was seen on 06/29/19. NOTE 58yo M admitted to the [facility] for psychosis with history of bipolar disorder with manic episodes and depression, whom I was called to [facility] because he fell on his way from the bathroom overnight and the nurse found him out in the low with a bleeding laceration above his left eye. On my examination he reports no headache, has some left elbow light bruising without bleeding and on head exam has a 4cm linear laceration above his left eyebrow that has already stopped bleeding with dry blood along the laceration as well as a small laceration on the back of his head. On neuro examination, his speech is clear without dysarthria, he has no facial droop, he is not able to tell me the nature of his fall, has full range of motion of both UE and LE, normal gait, CN2-12 are in tact. I will order a noncon head CT to r/o bleeding. He is otherwise safe, to remain in the [facility] for psychiatric treatment. VS,Fishbone, I+O VS, Fishbone, I+O Vital Signs Date Time Temp Pulse Resp B/P (MAP) Pulse Ox O2 Delivery O2 Flow Rate FiO2 06/28/19 16:06 97.8 81 16 121/75 (90) 06/28/19 08:30 Room Air 06/28/19 06:32 97 ROSSANA WALDEN MD June 29, 2019 03:24
--- NOTE | 2019-06-29 03:53 | REPVR ---
PROCEDURE INFORMATION: Exam: CT Head Without Contrast Exam date and time: 06/29/2019 3:17 AM Age: 58 years old Clinical indication: Injury or trauma; Fall; Initial encounter; Concussion / head injury; Consciousness not specified TECHNIQUE: Imaging protocol: Computed tomography of the head without contrast. Radiation optimization: All CT scans at this facility use at least one of these dose optimization techniques: automated exposure control; mA and/or kV adjustment per patient size (includes targeted exams where dose is matched to clinical indication); or iterative reconstruction. COMPARISON: No relevant prior studies available. FINDINGS: Brain: Mild volume loss. No acute intracranial hemorrhage, midline shift or mass effect. Ventricles: No hydrocephalus. Bones/joints: Unremarkable. No acute fracture. Sinuses: Visualized sinuses are unremarkable. No fluid levels. Mastoid air cells: Visualized mastoid air cells are well aerated. Soft tissues: Unremarkable. IMPRESSION: No acute intracranial abnormality. Electronically signed by: Baldo Vega On 06/29/2019 03:52:54 AM
[2019-06-29] MEDS: TIOTROPIUM INHALER/CAPSULE (SPIRIVA) INH SCH (07:36)
[2019-06-29] MEDS: TAMSULOSIN 0.4 MG CAP PO SCH (08:58)
[2019-06-29] MEDS: ACETAMINOPHEN TAB 650MG DOSE (2X325MG) PO PRN (08:58)
[2019-06-29] MEDS: lisinopriL 20 MG TAB PO SCH (08:58)
[2019-06-29] MEDS: OMEPRAZOLE 20 MG CAP PO SCH (08:59)
[2019-06-29 16:18] VITALS: BP 107/80
[2019-06-29] MEDS: PILL CUTTER 1 EACH XX PRN (21:16)
[2019-06-29] MEDS: ATORVASTATIN 10 MG TAB PO SCH (21:17)
[2019-06-29] MEDS: traZODone 50 MG TAB PO PRN (21:17)
[2019-06-29] MEDS: cloZAPine 25 MG TAB (S0136) PO SCH (21:18)
[2019-06-30 06:35] VITALS: BP 122/65
[2019-06-30] MEDS: TIOTROPIUM INHALER/CAPSULE (SPIRIVA) INH SCH (07:25)
[2019-06-30] MEDS: TAMSULOSIN 0.4 MG CAP PO SCH (08:14)
[2019-06-30] MEDS: OLANZapine ORAL DISINTEGRATING TAB 5MG PO PRN (08:14)
[2019-06-30] MEDS: OMEPRAZOLE 20 MG CAP PO SCH (08:14)
[2019-06-30] MEDS: lisinopriL 20 MG TAB PO SCH (08:14)
--- NOTE | 2019-06-30 10:09 | MHIPN ---
DATE: 06/29/2019 The patient is doing good. He has no complaints essentially. He had imaging done of his brain and everything was normal. He says that he did not feel dizzy then, he just lost his step and that is how he fell. MENTAL STATUS EXAMINATION: The patient is cooperative. Eye contact fair. He appears to be confused. He basically did not communicate much other than to say that he was feeling good. There is no formal thought disorder noted. His affect was flat. I suspect that he continues to be quite delusional, possibly, responding to interview. Concentration is fair. Insight and judgment is poor. DIAGNOSIS: 1. Schizoaffective disorder, bipolar type. TREATMENT AND PLAN: Will continue to monitor the patient for continued stabilization of his psychotic symptoms and we will continue titrate medication as indicated.
[2019-06-30] MEDS: ATORVASTATIN 10 MG TAB PO SCH (20:46)
[2019-06-30] MEDS: cloZAPine 25 MG TAB (S0136) PO SCH (20:46)
[2019-06-30] MEDS: traZODone 50 MG TAB PO PRN (20:46)
[2019-07-01] MEDS: OLANZapine ORAL DISINTEGRATING TAB 5MG PO PRN (02:28)
[2019-07-01 06:40] VITALS: BP 160/92
[2019-07-01] MEDS: OMEPRAZOLE 20 MG CAP PO SCH (09:01)
[2019-07-01] MEDS: TAMSULOSIN 0.4 MG CAP PO SCH (09:01)
[2019-07-01] MEDS: TIOTROPIUM INHALER/CAPSULE (SPIRIVA) INH SCH (09:01)
[2019-07-01] MEDS: lisinopriL 20 MG TAB PO SCH (09:03)
--- NOTE | 2019-07-01 11:56 | MHIPNPDOC ---
[facility] Progress Note Progress Note Inpatient Progress Note Kevin Olivera MRN: N/A Date of : N/A Date of Service: 07/01/2019 History of Present Illness The patient, a 58-year-old man, presents after becoming increasingly bizarre and paranoid. He has a history of bipolar disorder and had recently been changed on his medications. He was on Vraylar, but reports that he had subsequently become more worried and anxious. Unfortunately he is not able to relay a complex hi story as he is able to only answer questions that are quite simple being quite psychotic and disorganized. Interval History The patient was met with today. He only answers questions in yes and no's with very little detail elaborated. He has not been taking care of himself, has had poor hygiene and generally is required a one-to-one sitter in order to coordinate his very disorganized behavior. He requires quite a bit of help in order to engage in any basic ADLs and generally continues to be quite psychotic and distorted. Review Of Systems Denies grossly any physical symptoms. Psychotherapy None on this visit. Vital Signs Reviewed. Mental Status Examination General: Fair hygiene Speech: Paucity of speech Thought processes: Somewhat circumstantial MSK: Smooth and coordinated gait, no signs of tremors or involuntary orofacial movements Thought content: Paucity of thought Abstract reasoning, and computation: Intact Description of associations: Impaired Description of abnormal or psychotic thoughts: Denies overt unusual thoughts, but appears to be responding to internal stimuli at times. Judgment: Limited Insight: Limited Orientation: Alert and orientated 3 Cognition: Grossly normal Recent and remote memory: Intact Attention span and concentration: Intact Fund of knowledge: Adequate Mood: "okay" Affect: Flat Diagnoses Schizoaffective disorder, bipolar type, most recent episode depressed. Assessment and Plan Schizoaffective disorder: Continue clozapine 12.5 mg daily. Disposition Patient will need a further involuntary admission as he is so quite, psychotic and distorted, completely unable to engage in a meaningful discussion. Time Spent 15 minutes. Monday Vital Signs Vital Signs Date Time Temp Pulse Resp B/P (MAP) Pulse Ox O2 Delivery O2 Flow Rate FiO2 07/01/19 09:03 143/83 07/01/19 06:40 98.2 85 14 Room Air 06/29/19 02:57 96 Laboratory Data 24H Labs Laboratory Tests 2 07/01/19 06:20: Bedside Glucose (Misc Panel) 137H Current Medications Current Medications Medications (Trade) Dose Ordered Sig/Terrance Route PRN Reason Start Time Stop Time Status Last Admin Dose Admin Acetaminophen (Tylenol Tab) 650 mg Q6HP PRN PO HEADACHE or DISCOMFORT 06/24/19 22:00 06/29/19 08:58 Al Hydrox/Mg Hydrox/Simethicone (Mylanta) 30 ml Q4HP PRN PO HEARTBURN/INDIGESTION 06/24/19 22:00 Aripiprazole (AbiLIFY) 5 mg BID PO 06/25/19 09:00 06/25/19 10:33 DC 06/25/19 08:49 Atorvastatin Calcium (Lipitor) 10 mg QPM PO 06/24/19 21:00 06/30/19 20:46 Cariprazine (Vraylar) 4.5 mg DAILY PO 06/25/19 10:45 06/27/19 11:39 DC 06/26/19 09:07 Clozapine (Clozaril) 12.5 mg QHS PO 06/27/19 21:00 06/30/19 20:46 Home Med (Med Rec Complete!) ASDIRECTED XX 06/24/19 22:45 06/24/19 22:46 DC Lisinopril (Prinivil) 20 mg DAILY PO 06/25/19 09:00 07/01/19 09:03 Magnesium Hydroxide (Milk Of Magnesia) 30 ml DAILYPRN PRN PO CONSTIPATION 06/24/19 22:00 Metformin HCl (Glucophage) 500 mg BID@08,18 PO 06/25/19 08:00 06/24/19 23:07 DC Metformin HCl (Glucophage) 500 mg DAILY@08 PO 06/27/19 08:00 06/28/19 16:19 DC 06/28/19 07:45 Metformin HCl (Glucophage) 1,000 mg BID@08,18 PO 06/25/19 08:00 06/27/19 07:10 DC 06/26/19 17:26 Olanzapine (ZyPREXA ZYDIS) 5 mg Q6HP PRN PO ANXIETY/AGITATION 06/24/19 23:00 07/01/19 02:28 Omeprazole (PriLOSEC) 20 mg DAILY PO 06/25/19 09:00 07/01/19 09:01 Sitagliptin Phosphate (Januvia) 100 mg DAILY PO 06/25/19 09:00 06/26/19 15:49 DC 06/25/19 08:50 Tamsulosin HCl (Flomax) 0.4 mg DAILY PO 06/25/19 09:00 07/01/19 09:01 Tamsulosin HCl (Flomax) 0.8 mg DAILY PO 06/25/19 09:00 06/24/19 23:07 DC Tiotropium [place] (Spiriva Handihaler) 1 inhalation DAILY@08 INH 06/25/19 08:00 07/01/19 09:01 Trazodone HCl (Desyrel) 50 mg QHSP PRN PO INSOMNIA 06/24/19 22:00 06/30/19 20:46 Allergies Coded Allergies: Penicillins (Verified Allergy, Intermediate, rash, 10/18/18) haloperidol (Verified Adverse Reaction, Intermediate, "crazy", 10/18/18) zolpidem (Verified Adverse Reaction, Intermediate, "crazy", 10/18/18) divalproex sodium (Verified Adverse Reaction, Mild, weight gain, 10/22/18) NACHO MOE DO July 01, 2019 11:56
[2019-07-01] MEDS: DOCUSATE SODIUM 100 MG CAP PO SCH (12:17)
[2019-07-01 15:41] VITALS: BP 134/94
[2019-07-01] MEDS: ATORVASTATIN 10 MG TAB PO SCH (21:56)
[2019-07-01] MEDS: traZODone 50 MG TAB PO PRN (21:56)
[2019-07-01] MEDS: cloZAPine 25 MG TAB (S0136) PO SCH (21:56)
[2019-07-02 06:42] VITALS: BP 121/86
[2019-07-02] MEDS: TAMSULOSIN 0.4 MG CAP PO SCH (08:24)
[2019-07-02] MEDS: DOCUSATE SODIUM 100 MG CAP PO SCH (08:24)
[2019-07-02] MEDS: lisinopriL 20 MG TAB PO SCH (08:24)
[2019-07-02] MEDS: TIOTROPIUM INHALER/CAPSULE (SPIRIVA) INH SCH (08:24)
[2019-07-02] MEDS: OMEPRAZOLE 20 MG CAP PO SCH (08:24)
--- NOTE | 2019-07-02 09:19 | MHIPNPDOC ---
[facility] Progress Note Progress Note Inpatient Progress Note Kevin Olivera MRN: N/A Date of : N/A Date of Service: 07/02/2019 History of Present Illness The patient, a 58-year-old man, presents after becoming increasingly bizarre and paranoid. He has a history of bipolar disorder and had recently been changed on his medications. He was on Vraylar, but reports that he had subsequently become more worried and anxious. Unfortunately he is not able to relay a complex h istory as he is able to only answer questions that are quite simple being quite psychotic and disorganized. Interval History The patient is met with today. However today he has little to contribute simply answering yes and no to a variety of questions without any other discussion notable. He has had some episodes of irritation and confusion as well as being quite disorganized. Review Of Systems Grossly denies any physical symptoms. Psychotherapy None on this visit. Vital Signs Reviewed. Mental Status Examination General: Fair hygiene Speech: Paucity of speech Thought processes: Somewhat circumstantial MSK: Smooth and coordinated gait, no signs of tremors or involuntary orofacial movements Thought content: Paucity of thought Abstract reasoning, and computation: Intact Description of associations: Impaired Description of abnormal or psychotic thoughts: Denies overt unusual thoughts, b ut appears to be responding to internal stimuli at times. Judgment: Limited Insight: Limited Orientation: Alert and orientated 3 Cognition: Grossly normal Recent and remote memory: Intact Attention span and concentration: Intact Fund of knowledge: Adequate Mood: "okay" Affect: Flat Diagnoses Schizoaffective disorder, bipolar type, most recent episode depressed. Assessment and Plan Schizoaffective disorder: Increase clozapine to 25 mg daily. Disposition Patient will need a further involuntary admission as he is so quite, psychotic and distorted, completely unable to engage in a meaningful discussion. Time Spent 15 minutes. Monday Vital Signs Vital Signs Date Time Temp Pulse Resp B/P (MAP) Pulse Ox O2 Delivery O2 Flow Rate FiO2 07/02/19 08:24 121/86 07/02/19 06:42 98.4 86 16 100 Room Air Laboratory Data 24H Labs Laboratory Tests 2 07/01/19 16:56: Bedside Glucose (Misc Panel) 144H 07/02/19 06:28: Bedside Glucose (Misc Panel) 132H Current Medications Current Medications Medications (Trade) Dose Ordered Sig/Terrance Route PRN Reason Start Time Stop Time Status Last Admin Dose Admin Acetaminophen (Tylenol Tab) 650 mg Q6HP PRN PO HEADACHE or DISCOMFORT 06/24/19 22:00 06/29/19 08:58 Al Hydrox/Mg Hydrox/Simethicone (Mylanta) 30 ml Q4HP PRN PO HEARTBURN/INDIGESTION 06/24/19 22:00 Aripiprazole (AbiLIFY) 5 mg BID PO 06/25/19 09:00 06/25/19 10:33 DC 06/25/19 08:49 Atorvastatin Calcium (Lipitor) 10 mg QPM PO 06/24/19 21:00 07/01/19 21:56 Cariprazine (Vraylar) 4.5 mg DAILY PO 06/25/19 10:45 06/27/19 11:39 DC 06/26/19 09:07 Clozapine (Clozaril) 12.5 mg QHS PO 06/27/19 21:00 07/01/19 21:56 Docusate Sodium (Colace) 100 mg DAILY PO 07/01/19 09:00 07/02/19 08:24 Home Med (Med Rec Complete!) ASDIRECTED XX 06/24/19 22:45 06/24/19 22:46 DC Lisinopril (Prinivil) 20 mg DAILY PO 06/25/19 09:00 07/02/19 08:24 Magnesium Hydroxide (Milk Of Magnesia) 30 ml DAILYPRN PRN PO CONSTIPATION 06/24/19 22:00 Metformin HCl (Glucophage) 500 mg BID@,18 PO 06/25/19 08:00 06/24/19 23:07 DC Metformin HCl (Glucophage) 500 mg DAILY@08 PO 06/27/19 08:00 06/28/19 16:19 DC 06/28/19 07:45 Metformin HCl (Glucophage) 1,000 mg BID@08,18 PO 06/25/19 08:00 06/27/19 07:10 DC 06/26/19 17:26 Olanzapine (ZyPREXA ZYDIS) 5 mg Q6HP PRN PO ANXIETY/AGITATION 06/24/19 23:00 07/01/19 02:28 Omeprazole (PriLOSEC) 20 mg DAILY PO 06/25/19 09:00 07/02/19 08:24 Sitagliptin Phosphate (Januvia) 100 mg DAILY PO 06/25/19 09:00 06/26/19 15:49 DC 06/25/19 08:50 Tamsulosin HCl (Flomax) 0.4 mg DAILY PO 06/25/19 09:00 07/02/19 08:24 Tamsulosin HCl (Flomax) 0.8 mg DAILY PO 06/25/19 09:00 06/24/19 23:07 DC Tiotropium [place] (Spiriva Handihaler) 1 inhalation DAILY@08 INH 06/25/19 08:00 07/02/19 08:24 Trazodone HCl (Desyrel) 50 mg QHSP PRN PO INSOMNIA 06/24/19 22:00 07/01/19 21:56 Allergies Coded Allergies: Penicillins (Verified Allergy, Intermediate, rash, 10/18/18) haloperidol (Verified Adverse Reaction, Intermediate, "crazy", 10/18/18) zolpidem (Verified Adverse Reaction, Intermediate, "crazy", 10/18/18) divalproex sodium (Verified Adverse Reaction, Mild, weight gain, 10/22/18) NACHO MOE DO July 02, 2019 09:19
[2019-07-02] MEDS ORDERED: PROPRANOLOL 10 MG TAB PO ONE (14:30)
[2019-07-02 16:44] VITALS: BP 138/85
[2019-07-02] MEDS: traZODone 50 MG TAB PO PRN (20:20)
[2019-07-02] MEDS: ATORVASTATIN 10 MG TAB PO SCH (20:20)
[2019-07-02] MEDS: OLANZapine ORAL DISINTEGRATING TAB 5MG PO PRN (20:23)
[2019-07-02] MEDS ORDERED: cloZAPine 25 MG TAB (S0136) PO SCH (21:00)
[2019-07-03 06:19] VITALS: BP 146/90
[2019-07-03] MEDS ORDERED: HALOPERIDOL 5MG/ML VIAL (J1630 PER 1) IM ONE (08:30)
[2019-07-03] MEDS: TIOTROPIUM INHALER/CAPSULE (SPIRIVA) INH SCH (08:32)
[2019-07-03] MEDS: ACETAMINOPHEN TAB 650MG DOSE (2X325MG) PO PRN (08:32)
[2019-07-03] MEDS: DOCUSATE SODIUM 100 MG CAP PO SCH (08:32)
[2019-07-03] MEDS: lisinopriL 20 MG TAB PO SCH (08:32)
[2019-07-03] MEDS: TAMSULOSIN 0.4 MG CAP PO SCH (08:32)
[2019-07-03] MEDS: OMEPRAZOLE 20 MG CAP PO SCH (08:32)
[2019-07-03] MEDS ORDERED: LORazepam 1 MG TAB PO STA (08:34)
--- NOTE | 2019-07-03 09:55 | MHIPNPDOC ---
[facility] Progress Note Progress Note Inpatient Progress Note Kevin Olivera MRN: N/A Date of : N/A Date of Service: 07/03/2019 History of Present Illness The patient, a 58-year-old man, presents after becoming increasingly bizarre and paranoid. He has a history of bipolar disorder and had recently been changed on his medications. He was on Vraylar, but reports that he had subsequently become more worried and anxious. Unfortunately he is not able to relay a complex hi story as he is able to only answer questions that are quite simple being quite psychotic and disorganized. Interval History Patient is met with today. He is much more alive and engaged. He talks more and is confused about why he is here, he asks about going home. He had had some episodes of agitation and disorganization. Requiring some Ativan this morning. He reportedly has become much more lucid, although much more anxious, he ends the interview quite quickly. Review Of Systems Does not lieu to any GI side effects or other physical complaints. Psychotherapy None on this visit. Vital Signs Reviewed. Mental Status Examination General: Fair hygiene Speech: Paucity of speech Thought processes: Somewhat circumstantial MSK: Smooth and coordinated gait, no signs of tremors or involuntary orofacial movements Thought content: More confused Abstract reasoning, and computation: Intact Description of associations: Impaired Description of abnormal or psychotic thoughts: Denies overt unusual thoughts, but appears to be responding to internal stimuli at times. Judgment: Limited Insight: Limited Orientation: Alert and orientated 3 Cognition: Grossly normal Recent and remote memory: Intact Attention span and concentration: Intact Fund of knowledge: Adequate Mood: "okay" Affect: More reactive Diagnoses Schizoaffective disorder, bipolar type, most recent episode depressed. Assessment and Plan Schizoaffective disorder: Continue clozapine 25 mg daily. Disposition Patient will need a further involuntary admission as he is so quite, psychotic and distorted, improving, but more reactive. Time Spent 15 minutes. Monday Vital Signs Vital Signs Date Time Temp Pulse Resp B/P (MAP) Pulse Ox O2 Delivery O2 Flow Rate FiO2 07/03/19 08:32 146/90 07/03/19 07:46 Room Air 07/03/19 06:19 97.2 95 18 99 Laboratory Data 24H Labs Laboratory Tests 2 07/03/19 05:57: Bedside Glucose (Misc Panel) 103 07/03/19 08:32: Bedside Glucose (Misc Panel) 159H Current Medications Current Medications Medications (Trade) Dose Ordered Sig/Terrance Route PRN Reason Start Time Stop Time Status Last Admin Dose Admin Acetaminophen (Tylenol Tab) 650 mg Q6HP PRN PO HEADACHE or DISCOMFORT 06/24/19 22:00 07/03/19 08:32 Al Hydrox/Mg Hydrox/Simethicone (Mylanta) 30 ml Q4HP PRN PO HEARTBURN/INDIGESTION 06/24/19 22:00 Aripiprazole (AbiLIFY) 5 mg BID PO 06/25/19 09:00 06/25/19 10:33 DC 06/25/19 08:49 Atorvastatin Calcium (Lipitor) 10 mg QPM PO 06/24/19 21:00 07/02/19 20:20 Cariprazine (Vraylar) 4.5 mg DAILY PO 06/25/19 10:45 06/27/19 11:39 DC 06/26/19 09:07 Clozapine (Clozaril) 12.5 mg QHS PO 06/27/19 21:00 07/02/19 14:04 DC 07/01/19 21:56 Clozapine (Clozaril) 25 mg QHS PO 07/02/19 21:00 07/02/19 20:20 Docusate Sodium (Colace) 100 mg DAILY PO 07/01/19 09:00 07/03/19 08:32 Home Med (Med Rec Complete!) ASDIRECTED XX 06/24/19 22:45 06/24/19 22:46 DC Lisinopril (Prinivil) 20 mg DAILY PO 06/25/19 09:00 07/03/19 08:32 Lorazepam (Ativan) 1 mg STAT STAT PO 07/03/19 08:34 07/03/19 08:36 DC 07/03/19 08:38 Magnesium Hydroxide (Milk Of Magnesia) 30 ml DAILYPRN PRN PO CONSTIPATION 06/24/19 22:00 Metformin HCl (Glucophage) 500 mg BID@08,18 PO 06/25/19 08:00 06/24/19 23:07 DC Metformin HCl (Glucophage) 500 mg DAILY@08 PO 06/27/19 08:00 06/28/19 16:19 DC 06/28/19 07:45 Metformin HCl (Glucophage) 1,000 mg BID@08,18 PO 06/25/19 08:00 06/27/19 07:10 DC 06/26/19 17:26 Olanzapine (ZyPREXA ZYDIS) 5 mg Q6HP PRN PO ANXIETY/AGITATION 06/24/19 23:00 07/02/19 20:23 Omeprazole (PriLOSEC) 20 mg DAILY PO 06/25/19 09:00 07/03/19 08:32 Sitagliptin Phosphate (Januvia) 100 mg DAILY PO 06/25/19 09:00 06/26/19 15:49 DC 06/25/19 08:50 Tamsulosin HCl (Flomax) 0.4 mg DAILY PO 06/25/19 09:00 07/03/19 08:32 Tamsulosin HCl (Flomax) 0.8 mg DAILY PO 06/25/19 09:00 06/24/19 23:07 DC Tiotropium [place] (Spiriva Handihaler) 1 inhalation DAILY@08 INH 06/25/19 08:00 07/03/19 08:32 Trazodone HCl (Desyrel) 50 mg QHSP PRN PO INSOMNIA 06/24/19 22:00 07/02/19 20:20 Allergies Coded Allergies: Penicillins (Verified Allergy, Intermediate, rash, 10/18/18) haloperidol (Verified Adverse Reaction, Intermediate, "crazy", 10/18/18) zolpidem (Verified Adverse Reaction, Intermediate, "crazy", 10/18/18) divalproex sodium (Verified Adverse Reaction, Mild, weight gain, 10/22/18) NACHO MOE DO July 03, 2019 09:55
[2019-07-03] MEDS: cloZAPine 25 MG TAB (S0136) PO SCH ×2 (11:43→21:20)
[2019-07-03] MEDS: OLANZapine ORAL DISINTEGRATING TAB 5MG PO PRN (13:43)
[2019-07-03 18:16] VITALS: BP 122/81
[2019-07-03] MEDS: ATORVASTATIN 10 MG TAB PO SCH (21:20)
[2019-07-03] MEDS: traZODone 50 MG TAB PO PRN (21:20)
[2019-07-04] MEDS: OLANZapine ORAL DISINTEGRATING TAB 5MG PO PRN (03:16)
[2019-07-04] MEDS ORDERED: LORazepam 1 MG TAB PO ONE (04:45)
[2019-07-04] MEDS: TIOTROPIUM INHALER/CAPSULE (SPIRIVA) INH SCH (08:53)
[2019-07-04] MEDS: TAMSULOSIN 0.4 MG CAP PO SCH (08:53)
[2019-07-04] MEDS: OMEPRAZOLE 20 MG CAP PO SCH (08:54)
[2019-07-04] MEDS: cloZAPine 25 MG TAB (S0136) PO SCH ×2 (08:55→20:28)
[2019-07-04] MEDS: lisinopriL 20 MG TAB PO SCH (08:55)
[2019-07-04] MEDS: DOCUSATE SODIUM 100 MG CAP PO SCH (08:56)
--- NOTE | 2019-07-04 09:59 | MHIPNPDOC ---
[facility] Progress Note Progress Note Inpatient Progress Note Kevin Olivera MRN: N/A Date of : N/A Date of Service: 07/04/2019 History of Present Illness The patient, a 58-year-old man, presents after becoming increasingly bizarre and paranoid. He has a history of bipolar disorder and had recently been changed on his medications. He was on Vraylar, but reports that he had subsequently become more worried and anxious. Unfortunately he is not able to relay a complex hi story as he is able to only answer questions that are quite simple being quite psychotic and disorganized. Interval History The patient is met with today. He did have an episode of being verbally aggressive the previous evening. He is much more active and engaged. He is upset because he wants to go home, but is open to discussion about how he might make that happen. He does appear to be more active and engaged since being discontinued on Vraylar. He reports no side effects from the medications at this time. He does appear to have more episodes of agitation in the evening. Nursing staff has concerns for sundowning and neurocognitive problems. Review Of Systems General: Denies fever or appetite changes. Cardiovascular: Denies Chest pain or palpations. GI: Denies Nausea, vomiting, or bowel changes. Respiratory: Denies shortness of breath or cough. Neuro: Denies dizziness, tremors. Derm: Denies any rashes or pruritus. : Denies any dysuria or urinary problems. MSK: Denies any muscle tightness or stiffness. Psychotherapy None on this visit. Vital Signs Reviewed. Mental Status Examination General: Fair hygiene. Speech: More fluid. Thought processes: More linear. MSK: Smooth and coordinated gait, no signs of tremors or involuntary orofacial movements. Thought content: More focused. Abstract reasoning, and computation: Intact. Description of associations: Impaired. Description of abnormal or psychotic thoughts: Denies overt unusual thoughts, but appears to be responding to internal stimuli at times. Judgment: Improved. Insight: Improved. Orientation: Alert and orientated 3. Cognition: Grossly normal. Recent and remote memory: Intact. Attention span and concentration: Intact. Fund of knowledge: Adequate. Mood: "Okay." Affect: More reactive. Diagnoses Schizoaffective disorder, bipolar type, most recent episode depressed. Unspecified neurocognitive disorder. Unclear if negative symptoms versus underlying problem. Assessment and Plan Schizoaffective disorder: Continue clozapine 25 mg daily, add clonazepam 0.5 mg q.h.s. in order to prevent nighttime agitation to determine if he is able to be discharged. Disposition After discussion with the patient, he does appear to be making some improvements. I have discussed with patient at length about needing to be under behavioral control and denying suicidal or homicidal ideation before discharge can be considered. He does likely have baseline psychiatric symptoms and his ultimate level of function is likely quite low. He is supported by his parents and with appropriate discharge plan, he could be discharged tomorrow. Time Spent 15 minutes. Vital Signs Vital Signs Date Time Temp Pulse Resp B/P (MAP) Pulse Ox O2 Delivery O2 Flow Rate FiO2 07/04/19 08:55 126/86 07/03/19 18:16 98.0 90 18 100 Room Air Laboratory Data 24H Labs Laboratory Tests 2 07/03/19 17:16: Bedside Glucose (Misc Panel) 115 Current Medications Current Medications Medications (Trade) Dose Ordered Sig/Terrance Route PRN Reason Start Time Stop Time Status Last Admin Dose Admin Acetaminophen (Tylenol Tab) 650 mg Q6HP PRN PO HEADACHE or DISCOMFORT 06/24/19 22:00 07/03/19 08:32 Al Hydrox/Mg Hydrox/Simethicone (Mylanta) 30 ml Q4HP PRN PO HEARTBURN/INDIGESTION 06/24/19 22:00 Aripiprazole (AbiLIFY) 5 mg BID PO 06/25/19 09:00 06/25/19 10:33 DC 06/25/19 08:49 Atorvastatin Calcium (Lipitor) 10 mg QPM PO 06/24/19 21:00 07/03/19 21:20 Cariprazine (Vraylar) 4.5 mg DAILY PO 06/25/19 10:45 06/27/19 11:39 DC 06/26/19 09:07 Clozapine (Clozaril) 12.5 mg QHS PO 06/27/19 21:00 07/02/19 14:04 DC 07/01/19 21:56 Clozapine (Clozaril) 25 mg BID PO 07/03/19 09:00 07/04/19 08:55 Clozapine (Clozaril) 25 mg QHS PO 07/02/19 21:00 07/03/19 10:14 DC 07/02/19 20:20 Docusate Sodium (Colace) 100 mg DAILY PO 07/01/19 09:00 07/04/19 08:56 Home Med (Med Rec Complete!) ASDIRECTED XX 06/24/19 22:45 06/24/19 22:46 DC Lisinopril (Prinivil) 20 mg DAILY PO 06/25/19 09:00 07/04/19 08:55 Lorazepam (Ativan) 1 mg STAT STAT PO 07/03/19 08:34 07/03/19 08:36 DC 07/03/19 08:38 Magnesium Hydroxide (Milk Of Magnesia) 30 ml DAILYPRN PRN PO CONSTIPATION 06/24/19 22:00 Metformin HCl (Glucophage) 500 mg BID@, PO 06/25/19 08:00 06/24/19 23:07 DC Metformin HCl (Glucophage) 500 mg DAILY@08 PO 06/27/19 08:00 06/28/19 16:19 DC 06/28/19 07:45 Metformin HCl (Glucophage) 1,000 mg BID@08,18 PO 06/25/19 08:00 06/27/19 07:10 DC 06/26/19 17:26 Olanzapine (ZyPREXA ZYDIS) 5 mg Q6HP PRN PO ANXIETY/AGITATION 06/24/19 23:00 07/04/19 03:16 Omeprazole (PriLOSEC) 20 mg DAILY PO 06/25/19 09:00 07/04/19 08:54 Sitagliptin Phosphate (Januvia) 100 mg DAILY PO 06/25/19 09:00 06/26/19 15:49 DC 06/25/19 08:50 Tamsulosin HCl (Flomax) 0.4 mg DAILY PO 06/25/19 09:00 07/04/19 08:53 Tamsulosin HCl (Flomax) 0.8 mg DAILY PO 06/25/19 09:00 06/24/19 23:07 DC Tiotropium Guys (Spiriva Handihaler) 1 inhalation DAILY@08 INH 06/25/19 08:00 07/04/19 08:53 Trazodone HCl (Desyrel) 50 mg QHSP PRN PO INSOMNIA 06/24/19 22:00 07/03/19 21:20 Allergies Coded Allergies: Penicillins (Verified Allergy, Intermediate, rash, 10/18/18) haloperidol (Verified Adverse Reaction, Intermediate, "crazy", 10/18/18) zolpidem (Verified Adverse Reaction, Intermediate, "crazy", 10/18/18) divalproex sodium (Verified Adverse Reaction, Mild, weight gain, 10/22/18) NACHO MOE DO July 04, 2019 09:59
[2019-07-04] MEDS ORDERED: clonazePAM 0.5 MG TAB PO SCH (17:00)
[2019-07-04] MEDS: ATORVASTATIN 10 MG TAB PO SCH (20:28)
[2019-07-04] MEDS: traZODone 50 MG TAB PO PRN (20:28)
[2019-07-05] MEDS: ACETAMINOPHEN TAB 650MG DOSE (2X325MG) PO PRN (05:59)
[2019-07-05 06:20] VITALS: BP 142/81
[2019-07-05 08:48] VITALS: BP 140/87
[2019-07-05] MEDS: lisinopriL 20 MG TAB PO SCH (08:48)
[2019-07-05] MEDS: DOCUSATE SODIUM 100 MG CAP PO SCH (08:48)
[2019-07-05] MEDS: cloZAPine 25 MG TAB (S0136) PO SCH (08:48)
[2019-07-05] MEDS: OMEPRAZOLE 20 MG CAP PO SCH (08:48)
[2019-07-05] MEDS: TAMSULOSIN 0.4 MG CAP PO SCH (08:49)
[2019-07-05] MEDS: TIOTROPIUM INHALER/CAPSULE (SPIRIVA) INH SCH (08:49)
--- NOTE | 2019-07-05 09:24 | MHDSPDOC ---
[facility] Discharge Summary Discharge Summary DATE OF ADMISSION: June 24, 2019 at 21:58 DATE OF DISCHARGE: 07/05/2019 Discharge Kevin Olivera MRN: N/A Date of : N/A Date of Service: 07/05/2019 Diagnoses Schizoaffective disorder, bipolar type, most recent episode depressed. Unspecified neurocognitive disorder. Unclear if negative symptoms versus underlying problem. History of Present Illness The patient, a 58-year-old man, presents after becoming increasingly bizarre and paranoid. He has a history of bipolar disorder and had recently been changed on his medications. He was on Vraylar, but reports that he had subsequently become more worried and anxious. Unfortunately he is not able to relay a complex history as he is able to only answer questions that are quite simple being quite psychotic and disorganized. Consultants Involved Hospitalist/PCP screening Treatment and Progress On The Unit The patient was admitted to the Inpatient Mental Health Unit where he initially was quite sedated and confused. He was tried on Vraylar, but he had significant GI side effects and needed to be taken off this. He was placed on clozapine initially 12.5 mg nightly, increased to a total of 25 mg b.i.d. with positive effects. The patient then was augmented with clonazepam as he notably had episodes at night of confusion and agitation possibly because or related to sundowning from a neurocognitive disorder such as negative symptoms or even a possible dementia. He had requested to go home multiple times and although he had been verbally agitated, he had only had a few episodes of physical aggression during the initial part of his admission. He did well and was stable for well over 24 hours with no behavioral problems after the start of c lonazepam. Discharge Assessment The patient, a 58-year-old man with likely history of schizoaffective disorder and potentially neurocognitive disorder, presents after becoming somewhat distorted unable to care for self. Augmentation with clozapine and use of a small dose of benzodiazepine appears to help him be more active without being overly aggressive. He does have some likely baseline problems of caring for himself; however, his mother and father do help take care of him, and we have recruited his family to help engage. We have discussed with the family about his current state and they report that they are ready for him to return home and do not have reservations as his level of function is likely quite limited at baseline and require some level of help. He has been stable for well over 24 hours with no aggression. He has had no problems with suicide during the entirety of his admission and his self-care has improved with him showering on his own volition. He does not meet involuntary criteria at this time as he has an improved mental status and has responded to the directions and medication changes sufficiently well. He wants to return home and at this time I have difficulty justifying further involuntary admission. Mental Status Examination General: Improved hygiene. Speech: More fluid. Thought processes: Linear and logical. MSK: Smooth and coordinated gait, no signs of tremors or involuntary orofacial movements. Thought content: More focused. Abstract reasoning, and computation: Improved. Description of associations: Improved. Description of abnormal or psychotic thoughts: Denies any suicidal or homicidal ideation. Denies any auditory or visual hallucinations. Does not appear to be responding to internal stimuli. Does not appear to be endorsing any bizarre or paranoid ideation. Judgment: Improved. Insight: Improved. Orientation: Alert and orientated 3. Cognition: Likely baseline slowing, but no overt problems. Recent and remote memory: Intact. Attention span and concentration: Intact. Fund of knowledge: Adequate. Mood: "okay." Affect: More euthymic. Follow Up The social work team worked during the predischarge meeting in order to evaluate for further issues of lethality address them fully before discharge. They worked on safety planning with the patient's family members in order to ensure that the patient will have a safe and effective discharge. Time Spent The amount of time spent in the coordination of care for this patient was approximately 45 minutes. Monday Vital Signs/I&Os Vital Signs Date Time Temp Pulse Resp B/P (MAP) Pulse Ox O2 Delivery O2 Flow Rate FiO2 07/05/19 08:48 140/87 07/05/19 06:20 97.0 88 18 98 Room Air Laboratory Data Labs 24H Laboratory Tests 2 07/04/19 17:22: Bedside Glucose (Misc Panel) 120H Medications Scheduled Atorvastatin Calcium (Atorvastatin Calcium) 10 Mg Tab, 10 MG PO DAILY for CHOLESTEROL, (Reported) Clonazepam (Clonazepam) 0.5 Mg Tablet, 0.5 MG PO DAILY@1700 for anxiety and agitation for 7 Days, #14 Clozapine (Clozapine) 25 Mg Tablet, 25 MG PO BID for thoughts for 7 Days, #14 Docusate Sodium (Docusate Sodium) 100 Mg Capsule, 100 MG PO DAILY for GI for 30 Days, #30 Lisinopril (Lisinopril) 20 Mg Tablet, 20 MG PO DAILY, (Reported) Metformin HCl (Metformin HCl) 1,000 Mg Tablet, 1,000 MG PO BID, (Reported) Omeprazole (Omeprazole) 20 Mg Capsule.dr, 20 MG PO DAILY, (Reported) Sitagliptin Phosphate (Januvia) 100 Mg Tablet, 100 MG PO DAILY, (Reported) Tamsulosin HCl (Flomax) 0.4 Mg Cap, 0.4 MG PO DAILY, (Reported) Tiotropium [place] (Spiriva) 18 Mcg Cap.w.dev, 18 MCG INH DAILY, (Reported) Allergies Coded Allergies: Penicillins (Verified Allergy, Intermediate, rash, 10/18/18) haloperidol (Verified Adverse Reaction, Intermediate, "crazy", 10/18/18) zolpidem (Verified Adverse Reaction, Intermediate, "crazy", 10/18/18) divalproex sodium (Verified Adverse Reaction, Mild, weight gain, 10/22/18) NACHO MOE DO July 05, 2019 09:24
[2019-07-05 12:55] LABS: BASO # 0.1 10^3/uL (0.0-0.2); BASO % 1.1 % (0.0-1.0); EOS # 0.3 10^3/uL (0.0-0.5); EOS % 5.2 % (0.0-3.0); HEMATOCRIT 43.6 % (42.0-52.0); HEMOGLOBIN 14.9 g/dl (13.5-17.5); LYMPH % 45.4 % (24.0-44.0); MEAN CORPUSCULAR HEMOGLOBIN 29.8 pg (27.0-33.0); MEAN CORPUSCULAR HGB CONC 34.2 g/dl (32.0-36.5); MEAN CORPUSCULAR VOLUME 87.2 fl (80.0-96.0); MONO # 0.4 10^3/uL (0.0-0.8); MONO % 5.8 % (0.0-5.0); NEUTROPHILS # 2.8 10^3/uL (1.5-8.5); NEUTROPHILS % 42.2 % (36.0-66.0); PLATELET COUNT, AUTOMATED 263 10^3/uL (150-450); WHITE BLOOD COUNT 6.6 10^3/uL (4.0-10.0)
[2019-07-05] MEDS ORDERED: CLOZ25TA3 PO (13:24)
[2019-07-05] MEDS ORDERED: DOCU100C16 PO (13:24)
[2019-07-05] MEDS ORDERED: CLON0.5T2 PO (13:24)
== END 2019-07-05 15:15 | disposition home or self-care (01) | DRG 885 ==
LOC: M ED 19:38 → M ED INP 21:58 → M PSY 06-25 00:05
PROVIDERS: ADMIT Psychiatry & Neurology Psychiatry; ATTEND Psychiatry & Neurology Addiction Medicine
PROC: 0DB78ZX Excision of Stomach, Pylorus, Via Natural or Artificial Opening Endoscopic, Diagnostic (ICD-10-PCS; principal; 2019-06-21)
PROC: 0DB94ZX Excision of Duodenum, Percutaneous Endoscopic Approach, Diagnostic (ICD-10-PCS; 2019-06-21)
PROC: 0DJD8ZZ Inspection of Lower Intestinal Tract, Via Natural or Artificial Opening Endoscopic (ICD-10-PCS; 2019-06-21)
DX: F25.0 Schizoaffective disorder, bipolar type (principal); K26.9 Duodenal ulcer, unspecified as acute or chronic, without hemorrhage or perforation; R63.4 Abnormal weight loss; R93.3 Abnormal findings on diagnostic imaging of other parts of digestive tract; E11.9 Type 2 diabetes mellitus without complications; E78.5 Hyperlipidemia, unspecified; I10 Essential (primary) hypertension; R10.2 Pelvic and perineal pain; G47.00 Insomnia, unspecified; K21.9 Gastro-esophageal reflux disease without esophagitis; N40.0 Benign prostatic hyperplasia without lower urinary tract symptoms; M54.9 Dorsalgia, unspecified; J44.9 Chronic obstructive pulmonary disease, unspecified; K64.8 Other hemorrhoids; R41.9 Unspecified symptoms and signs involving cognitive functions and awareness; F17.210 Nicotine dependence, cigarettes, uncomplicated; Z79.84 Long term (current) use of oral hypoglycemic drugs; Z79.899 Other long term (current) drug therapy; Z88.0 Allergy status to penicillin; Z88.8 Allergy status to other drugs, medicaments and biological substances; S01.112A Laceration without foreign body of left eyelid and periocular area, initial encounter; W01.198A Fall on same level from slipping, tripping and stumbling with subsequent striking against other object, initial encounter; Y92.232 Corridor of hospital as the place of occurrence of the external cause

== ENCOUNTER → 2022-06-08 | Outpatient (CLI) | payer MEDICARE ==
[~2022-06-08] MED LIST changes: +ACET500T15 PO; -AMIT25TA PO; +AMIT25TA17 PO; +CLON0.5T2 PO; +CLOZ25TA6 PO; +DOCU100C16 PO; +HOME MED LIST COMPLETE! XX SCH; +HYDR-3490 PO; -HYDR25TAB PO; +LIDOCAINE 1% MDV 20ML VIAL As Ordered ONE; -LISI-538 PO; +LISI10TA22 PO; -LISI10TA4 PO; +LISI20TA33 PO; +OLAN1TAB16 PO; -OLAN5TAB PO; +OMEP-173 PO; +POTA10808 PO
[2022-06-08 08:10] LABS: PLATELET COUNT, AUTOMATED 203 10^3/uL (150-450)
[2022-06-08 08:30] LABS: INR 1.08; PROTHROMBIN TIME 14.2 SECONDS (12.5-14.5)
[2022-06-08 08:31] LABS: PARTIAL THROMBOPLASTIN TIME 30.3 SECONDS (24.8-34.2)
[2022-06-08 10:40] VITALS: BP 130/76
== END ==
LOC: M IRPRO 07:27
PROVIDERS: ATTEND Internal Medicine Pulmonary Disease
DX: R91.8 Other nonspecific abnormal finding of lung field (principal); J95.811 Postprocedural pneumothorax

== ENCOUNTER → 2022-06-27 | Outpatient (CLI) | payer MEDICARE ==
[~2022-06-27] MED LIST changes: -HOME MED LIST COMPLETE! XX SCH; -LIDOCAINE 1% MDV 20ML VIAL As Ordered ONE
== END ==
LOC: M PLARAD 14:36
PROVIDERS: ATTEND Internal Medicine Pulmonary Disease
DX: C34.11 Malignant neoplasm of upper lobe, right bronchus or lung (principal); R91.1 Solitary pulmonary nodule; R59.9 Enlarged lymph nodes, unspecified
CPT/HCPCS: 78815; A9552

== ENCOUNTER → 2022-07-15 | Outpatient (CLI) | payer OTHER ==
[2022-07-15 14:33] LABS: GLOMERULAR FILTRATION RATE > 60.0 (>49)
== END ==
LOC: M LAB 12:47
PROVIDERS: ATTEND Physician Assistant
DX: C34.11 Malignant neoplasm of upper lobe, right bronchus or lung (principal)

== ENCOUNTER → 2022-07-15 | Outpatient (CLI) | payer MEDICARE, OTHER ==
[~2022-07-15] MED LIST changes: +PROHANCE 279.3MG/ML 15ML VIAL As Ordered ONE
== END ==
LOC: M RAD 12:42
PROVIDERS: ATTEND Thoracic Surgery (Cardiothoracic Vascular Surgery)
DX: C34.11 Malignant neoplasm of upper lobe, right bronchus or lung (principal); R90.82 White matter disease, unspecified
CPT/HCPCS: 36415; 70553; 82565; A9576

== ENCOUNTER 2022-07-27 06:26 | Day surgery (SDC) | payer MEDICARE, OTHER ==
[~2022-07-27] VITALS: Ht 177.8 cm; Wt 69.4 kg
[~2022-07-27 06:26] MED LIST changes: -PROHANCE 279.3MG/ML 15ML VIAL As Ordered ONE
[2022-07-27] MEDS ORDERED: LR 1,000 ML IV SCH (06:55)
[2022-07-27] MEDS ORDERED: EPINEPHrine 1MG/10ML SYRINGE 1.5IN As Ordered ONE (07:19)
[2022-07-27] MEDS ORDERED: CETACAINE SPRAY 5GM As Ordered ONE (07:19)
[2022-07-27] MEDS ORDERED: THROMBIN 5,000 UNITS VIAL As Ordered ONE (07:19)
[2022-07-27] MEDS ORDERED: LIDOCAINE 2% 100MG/5ML SDV (FOR ANES.) As Ordered ONE (07:42)
[2022-07-27] MEDS ORDERED: ONDANSETRON 4MG 2ML VIAL As Ordered ONE (07:42)
[2022-07-27] MEDS ORDERED: SUGAMMADEX SODIUM 500 MG/5 ML VIAL (BRIDION) As Ordered ONE (07:42)
[2022-07-27] MEDS ORDERED: SEVOFLURANE INHAL SOLN 250 ML BTL As Ordered ONE (07:42)
[2022-07-27] MEDS ORDERED: propofoL 200 MG/20 ML VIAL As Ordered ONE (07:42)
[2022-07-27] MEDS ORDERED: MIDAZOLAM INJ 2MG/2ML VIAL As Ordered ONE (07:42)
[2022-07-27] MEDS ORDERED: ROCURONIUM BROMIDE 50MG/5ML VIAL As Ordered ONE (07:42)
[2022-07-27] MEDS ORDERED: fentaNYL 100 MCG/2 ML INJECTION As Ordered ONE (07:42)
[2022-07-27] MEDS ORDERED: METOCLOPRAMIDE INJ 10MG/2ML VIAL As Ordered ONE (07:42)
[2022-07-27] MEDS ORDERED: ePHEDrine SULFATE 25 MG/5 ML(5MG/ML) SYRINGE As Ordered ONE (07:46)
[2022-07-27] MEDS ORDERED: fentaNYL 100 MCG/2 ML INJECTION IV PRN (08:00)
[2022-07-27] MEDS ORDERED: ONDANSETRON 4MG 2ML VIAL IV PRN (08:00)
[2022-07-27] MEDS ORDERED: HYDROMORPHONE HCL 0.5 MG/ 0.5 ML SYRINGE IV PRN (08:00)
[2022-07-27] MEDS ORDERED: oxyCODONE 5MG TAB PO PRN (08:00)
[2022-07-27 09:00] VITALS: BP 139/78; TEMP 97.7; O2SAT 97
== END 2022-07-27 09:10 | disposition home or self-care (01) ==
LOC: M SDC 06:26
PROVIDERS: ATTEND Internal Medicine Pulmonary Disease
DX: C34.11 Malignant neoplasm of upper lobe, right bronchus or lung (principal); J42 Unspecified chronic bronchitis; R91.8 Other nonspecific abnormal finding of lung field; J43.9 Emphysema, unspecified; J84.112 Idiopathic pulmonary fibrosis; I10 Essential (primary) hypertension; E11.9 Type 2 diabetes mellitus without complications; F31.9 Bipolar disorder, unspecified; Z87.442 Personal history of urinary calculi; Z87.891 Personal history of nicotine dependence; Z88.0 Allergy status to penicillin; Z88.8 Allergy status to other drugs, medicaments and biological substances; Z79.899 Other long term (current) drug therapy
CPT/HCPCS: 31622; 31654; J1100; J2250; J2405; J2765; J3010

== ENCOUNTER → 2022-08-30 | Outpatient (CLI) | payer OTHER ==
[~2022-08-30] MED LIST changes: +ACET-897 PO
== END ==
LOC: M ONCR 10:30
PROVIDERS: ATTEND General Practice
DX: C34.11 Malignant neoplasm of upper lobe, right bronchus or lung (principal); F25.9 Schizoaffective disorder, unspecified; I10 Essential (primary) hypertension; E11.9 Type 2 diabetes mellitus without complications; Z71.2 Person consulting for explanation of examination or test findings; Z79.899 Other long term (current) drug therapy; Z87.891 Personal history of nicotine dependence; Z88.0 Allergy status to penicillin; Z88.5 Allergy status to narcotic agent; Z88.8 Allergy status to other drugs, medicaments and biological substances

== ENCOUNTER 2022-09-06 13:39 | Outpatient (RCR) | payer OTHER ==
[~2022-09-06 13:39] MED LIST changes: -AMIT25TA17 PO; +AMIT25TA19 PO
== END 2022-09-12 ==
LOC: M ONCR 13:39
PROVIDERS: ATTEND General Practice
DX: C34.11 Malignant neoplasm of upper lobe, right bronchus or lung (principal)

== ENCOUNTER → 2022-09-12 | Outpatient (CLI) | payer OTHER ==
[~2022-09-12] MED LIST changes: +AMIT25TA17 PO; -AMIT25TA19 PO; +LIDOCAINE W/EPINEPHRINE 1% 20ML VIAL As Ordered ONE; +MIDAZOLAM INJ 2MG/2ML VIAL As Ordered ONE; +VANCOMYCIN 1000MG/20ML VIAL As Ordered ONE; +fentaNYL 100 MCG/2 ML INJECTION As Ordered ONE
[2022-09-12 08:10] VITALS: TEMP 98.5
[2022-09-12 13:00] VITALS: BP 127/62; O2SAT 98
== END ==
LOC: M IRPRO 07:54
PROVIDERS: ATTEND Internal Medicine Medical Oncology
DX: C34.90 Malignant neoplasm of unspecified part of unspecified bronchus or lung (principal)
CPT/HCPCS: 36561; 99152; 99153; J2250; J3010

== ENCOUNTER → 2022-10-13 | Outpatient (RCR) | payer OTHER ==
[~2022-10-13] MED LIST changes: -AMIT25TA17 PO; +AMIT25TA19 PO; -LIDOCAINE W/EPINEPHRINE 1% 20ML VIAL As Ordered ONE; -MIDAZOLAM INJ 2MG/2ML VIAL As Ordered ONE; +ONDA-84 PO; +PROC10TA5 PO; -VANCOMYCIN 1000MG/20ML VIAL As Ordered ONE; -fentaNYL 100 MCG/2 ML INJECTION As Ordered ONE
== END ==
LOC: M ONCR 09-13 10:39
PROVIDERS: ATTEND General Practice
DX: Z51.0 Encounter for antineoplastic radiation therapy (principal); C34.11 Malignant neoplasm of upper lobe, right bronchus or lung

== ENCOUNTER → 2022-12-16 | Outpatient (CLI) | payer OTHER ==
[~2022-12-16] MED LIST changes: +ISOVUE-370 76% 100ML VIAL As Ordered ONE
== END ==
LOC: M RAD 14:07
PROVIDERS: ATTEND Nurse Practitioner
DX: C34.90 Malignant neoplasm of unspecified part of unspecified bronchus or lung (principal)
CPT/HCPCS: 71260; Q9967

== ENCOUNTER → 2023-04-04 | Outpatient (CLI) | payer OTHER ==
[~2023-04-04] MED LIST changes: +GASTROGRAFIN SOLUTION 30ML As Ordered ONE
== END ==
LOC: M RAD 11:38
PROVIDERS: ATTEND Internal Medicine Medical Oncology
DX: C34.11 Malignant neoplasm of upper lobe, right bronchus or lung (principal); N20.0 Calculus of kidney; N28.1 Cyst of kidney, acquired
CPT/HCPCS: 74177; Q9963; Q9967

== ENCOUNTER → 2023-04-13 | Outpatient (CLI) | payer OTHER ==
[~2023-04-13] MED LIST changes: -GASTROGRAFIN SOLUTION 30ML As Ordered ONE; +LISI10TA22
== END ==
LOC: M RAD 15:51
PROVIDERS: ATTEND Internal Medicine Medical Oncology
DX: C34.90 Malignant neoplasm of unspecified part of unspecified bronchus or lung (principal); J84.9 Interstitial pulmonary disease, unspecified; J90 Pleural effusion, not elsewhere classified; J43.9 Emphysema, unspecified; Z95.828 Presence of other vascular implants and grafts; I25.10 Atherosclerotic heart disease of native coronary artery without angina pectoris; I70.0 Atherosclerosis of aorta; R16.1 Splenomegaly, not elsewhere classified

== ENCOUNTER → 2023-05-04 | Outpatient (CLI) | payer OTHER ==
[~2023-05-04] MED LIST changes: -ISOVUE-370 76% 100ML VIAL As Ordered ONE
== END ==
LOC: M ONCR 12:23
PROVIDERS: ATTEND General Practice
DX: C34.11 Malignant neoplasm of upper lobe, right bronchus or lung (principal); R91.1 Solitary pulmonary nodule; Z92.3 Personal history of irradiation; R91.8 Other nonspecific abnormal finding of lung field; Z71.2 Person consulting for explanation of examination or test findings; Z79.899 Other long term (current) drug therapy; Z88.0 Allergy status to penicillin; Z88.1 Allergy status to other antibiotic agents; Z88.8 Allergy status to other drugs, medicaments and biological substances; Z87.891 Personal history of nicotine dependence; Z92.21 Personal history of antineoplastic chemotherapy

== ENCOUNTER → 2023-05-08 | Outpatient (CLI) | payer OTHER | LOC: M PLARAD 09:25 | PROVIDERS: ATTEND Internal Medicine Medical Oncology | DX: C34.11 Malignant neoplasm of upper lobe, right bronchus or lung (principal); J90 Pleural effusion, not elsewhere classified | CPT/HCPCS: 78815; A9552 ==

== ENCOUNTER → 2023-05-15 | Outpatient (CLI) | payer OTHER | LOC: M ONCR 11:39 | PROVIDERS: ATTEND General Practice | DX: R91.8 Other nonspecific abnormal finding of lung field (principal); Z85.118 Personal history of other malignant neoplasm of bronchus and lung; Z71.2 Person consulting for explanation of examination or test findings; Z79.620 Long term (current) use of immunosuppressive biologic; Z79.899 Other long term (current) drug therapy; Z87.891 Personal history of nicotine dependence; Z88.0 Allergy status to penicillin; Z88.1 Allergy status to other antibiotic agents; Z88.5 Allergy status to narcotic agent; Z88.8 Allergy status to other drugs, medicaments and biological substances; Z92.21 Personal history of antineoplastic chemotherapy; Z92.3 Personal history of irradiation ==

== ENCOUNTER → 2023-08-22 | Outpatient (CLI) | payer OTHER ==
[~2023-08-22] MED LIST changes: +CYCL-707 PO; +DEXA4TA PO; +IBUP200C25 PO; -LISI10TA22
== END ==
LOC: M ONCR 12:18
PROVIDERS: ATTEND General Practice
DX: C34.11 Malignant neoplasm of upper lobe, right bronchus or lung (principal); F25.9 Schizoaffective disorder, unspecified; Z79.899 Other long term (current) drug therapy; Z87.891 Personal history of nicotine dependence; Z88.0 Allergy status to penicillin; Z88.8 Allergy status to other drugs, medicaments and biological substances; Z92.21 Personal history of antineoplastic chemotherapy; Z92.3 Personal history of irradiation

== ENCOUNTER → 2023-09-11 | Outpatient (CLI) | payer OTHER ==
[~2023-09-11] MED LIST changes: +GASTROGRAFIN SOLUTION 30ML As Ordered ONE; +ISOVUE-370 76% 100ML VIAL As Ordered ONE
== END ==
LOC: M RAD 12:08
PROVIDERS: ATTEND General Practice
DX: C34.11 Malignant neoplasm of upper lobe, right bronchus or lung (principal); J44.9 Chronic obstructive pulmonary disease, unspecified; K76.89 Other specified diseases of liver
CPT/HCPCS: 71260; 74177; Q9963; Q9967

== ENCOUNTER 2023-09-12 11:13 | Inpatient (IN) | payer OTHER ==
[~2023-09-12] VITALS: Ht 177.8 cm; Wt 51.2 kg
[2023-09-12] VITALS (30 sets, daily range): BP systolic 126–175; BP diastolic 71–97; TEMP 96.7–97.5; O2SAT 94–100
[~2023-09-12 11:13] MED LIST changes: -CYCL-707 PO; -GASTROGRAFIN SOLUTION 30ML As Ordered ONE; -IBUP200C25 PO; -ISOVUE-370 76% 100ML VIAL As Ordered ONE
[2023-09-12] MEDS ORDERED: CYCL-707 PO (11:30)
[2023-09-12 11:55] LABS: BASO % 2.1 % (0.0-1.0); EOS % 2.1 % (0.0-3.0); HEMATOCRIT 34.7 % (42.0-52.0); HEMOGLOBIN 11.7 g/dl (13.5-17.5); LYMPH # 0.7 10^3/uL (1.5-5.0); LYMPH % 35.1 % (24.0-44.0); MEAN CORPUSCULAR HEMOGLOBIN 28.2 pg (27.0-33.0); MEAN CORPUSCULAR HGB CONC 33.7 g/dl (32.0-36.5); MEAN CORPUSCULAR VOLUME 83.6 fl (80.0-96.0); MONO # 0.6 10^3/uL (0.0-0.8); MONO % 29.3 % (2.0-8.0); NEUTROPHILS % 30.3 % (36.0-66.0); PLATELET COUNT, AUTOMATED 145 10^3/uL (150-450); RED BLOOD COUNT 4.15 10^6/uL (4.30-6.10); WHITE BLOOD COUNT 1.9 10^3/uL (4.0-10.0)
[2023-09-12 12:07] LABS: INR 1.59; PARTIAL THROMBOPLASTIN TIME 27.5 SECONDS (24.8-34.2); PROTHROMBIN TIME 18.5 SECONDS (12.5-14.5)
[2023-09-12 12:12] LABS: BLOOD UREA NITROGEN 16 MG/DL (9-23); CALCIUM LEVEL 10.4 MG/DL (8.3-10.6); CARBON DIOXIDE LEVEL 30 MMOL/L (20-31); CHLORIDE LEVEL 108 MMOL/L (98-107); CREATININE FOR GFR 0.55 MG/DL (0.70-1.30); GLOMERULAR FILTRATION RATE > 60.0 (>49); GLUCOSE, FASTING 135 MG/DL (74-106); POTASSIUM SERUM 4.3 MMOL/L (3.5-5.1); SODIUM LEVEL 143 MMOL/L (136-145)
[2023-09-12 12:15] LABS: NEUTROPHILS # 0.6 10^3/uL (1.5-8.5)
[2023-09-12] MEDS ORDERED: KETOROLAC 30 MG/ML 1ML VIAL As Ordered ONE (15:40)
[2023-09-12] MEDS: KETOROLAC 30 MG/ML 1ML VIAL IV STA (15:46)
[2023-09-12] MEDS: MIDAZOLAM INJ 2MG/2ML VIAL IV STA (15:47)
[2023-09-12] MEDS ORDERED: BISACODYL 10MG SUPP PR PRN (15:50)
[2023-09-12] MEDS ORDERED: ONDANSETRON 4MG 2ML VIAL IV PRN (15:50)
[2023-09-12] MEDS: flumazeniL 0.5MG/5ML VIAL IV STA (15:51)
[2023-09-12] MEDS: LIDOCAINE 1% MDV 20ML VIAL SC STA (15:51)
[2023-09-12] MEDS: D5W/0.9% SODIUM CHLORIDE 1,000 ML IV SCH (15:59)
[2023-09-12] MEDS: PERCOCET 5MG/325MG TAB PO PRN (16:00)
[2023-09-12 16:47] LABS: PH BODY FLUID 7.319 UNITS (NOT ESTABLISHED); SOURCE, BODY FLUID pH PLEURAL
[2023-09-12 16:50] LABS: SOURCE, BODY FLUID ALBUMIN PLEURAL
[2023-09-12 16:57] LABS: SOURCE, BODY FLUID TOT PROTEIN PLEURAL; TOTAL PROTEIN, BODY FLUID 5.3 G/DL (NOT ESTABLISHED)
[2023-09-12 17:31] LABS: APPEARANCE, BODY FLUID TURBID (CLEAR); PLEURAL FL COLOR RED (COLORLESS); SOURCE, BODY FLUID PLEURAL
[2023-09-12] MEDS ORDERED: MORPHINE 2 MG/ML 1ML VIAL IV PRN (17:55)
[2023-09-12 18:17] LABS: SOURCE, BODY FLUID GLUCOSE PLEURAL; SOURCE, BODY FLUID TRIG PLEURAL; TRIGLYCERIDE, BODY FLUID 55 MG/DL (NOT ESTABLISHED)
[2023-09-12 18:19] LABS: AMYLASE, BODY FLUID 38 U/L (NOT ESTABLISHED); CHOLESTEROL, BODY FLUID 205 MG/DL (NOT ESTABLISHED); SOURCE, BODY FLUID AMYLASE PLEURAL; SOURCE, BODY FLUID CHOL PLEURAL
[2023-09-12 18:20] LABS: LDH LACTATE DEHYDROGENASE 493 U/L (120-246)
[2023-09-12 18:21] LABS: TOTAL PROTEIN 5.7 G/DL (5.7-8.2)
[2023-09-12 18:28] LABS: LDH, BODY FLUID > 750 U/L (NOT ESTABLISHED); SOURCE, BODY FLUID LDH PLEURAL
[2023-09-12] MEDS: LEVALBUTEROL 1.25MG 0.5ML CONCENTRATE NEB NEB SCH (19:16)
[2023-09-12] MEDS ORDERED: HOME MED LIST COMPLETE! XX SCH (19:50)
[2023-09-12] MEDS ORDERED: IBUP200C25 PO (19:50)
[2023-09-12] MEDS: DOCUSATE SODIUM 100MG CAPSULE PO SCH (22:28)
[2023-09-12] MEDS: CYCLOBENZAPRINE 10MG TABLET PO SCH (22:28)
[2023-09-12] MEDS: TAMSULOSIN 0.4 MG CAP PO SCH (22:28)
[2023-09-12] MEDS: HEPARIN SOD (PORCINE) 5000UNITS/ML 1ML VIAL/SYRINGE SC SCH (22:28)
[2023-09-12] MEDS: KETOROLAC 30 MG/ML 1ML VIAL IV SCH (22:31)
[2023-09-12] MEDS ORDERED: GLUCAGON INJ 1MG VIAL SC PRN (22:40)
[2023-09-12] MEDS ORDERED: GLUCOSE 4 GM CHEW PO PRN (22:40)
[2023-09-12] MEDS ORDERED: DEXTROSE 50% 50ML SYRINGE IV PRN (22:40)
[2023-09-12] MEDS: INSULIN LISPRO (NovoLOG) PER UNIT SC SCH (22:49)
[2023-09-13] VITALS (14 sets, daily range): BP systolic 106–224; BP diastolic 67–158; TEMP 97.1–98.8; O2SAT 92–100
[2023-09-13] MEDS: ACETAMINOPHEN TAB 650MG DOSE (2X325MG) PO PRN (01:52)
[2023-09-13] MEDS: PERCOCET 5MG/325MG TAB PO PRN (02:31)
[2023-09-13 05:08] LABS: BASO % 1.4 % (0.0-1.0); EOS # 0.1 10^3/uL (0.0-0.5); EOS % 2.8 % (0.0-3.0); HEMATOCRIT 36.2 % (42.0-52.0); LYMPH # 0.7 10^3/uL (1.5-5.0); LYMPH % 31.8 % (24.0-44.0); MEAN CORPUSCULAR HEMOGLOBIN 27.9 pg (27.0-33.0); MEAN CORPUSCULAR HGB CONC 33.1 g/dl (32.0-36.5); MEAN CORPUSCULAR VOLUME 84.2 fl (80.0-96.0); MONO # 0.5 10^3/uL (0.0-0.8); MONO % 23.7 % (2.0-8.0); NEUTROPHILS % 39.4 % (36.0-66.0); PLATELET COUNT, AUTOMATED 137 10^3/uL (150-450); WHITE BLOOD COUNT 2.1 10^3/uL (4.0-10.0)
[2023-09-13 05:11] LABS: NEUTROPHILS # 0.8 10^3/uL (1.5-8.5)
[2023-09-13 05:28] LABS: BLOOD UREA NITROGEN 17 MG/DL (9-23); CALCIUM LEVEL 9.5 MG/DL (8.3-10.6); CARBON DIOXIDE LEVEL 26 MMOL/L (20-31); CHLORIDE LEVEL 108 MMOL/L (98-107); CREATININE FOR GFR 0.62 MG/DL (0.70-1.30); GLOMERULAR FILTRATION RATE > 60.0 (>49); GLUCOSE, FASTING 108 MG/DL (74-106); MAGNESIUM LEVEL 1.5 MG/DL (1.8-2.4); POTASSIUM SERUM 4.1 MMOL/L (3.5-5.1); SODIUM LEVEL 139 MMOL/L (136-145)
[2023-09-13] MEDS: PANTOPRAZOLE 40MG TAB (PROTONIX) PO SCH (08:39)
[2023-09-13] MEDS: INSULIN LISPRO (NovoLOG) PER UNIT SC SCH (08:39)
[2023-09-13] MEDS: NS 500 ML IV STA (08:40)
[2023-09-13] MEDS: MAG SULF 1GM/100ML (MAG RUN) 1 GM in IV 1 EA IV SCH (08:40)
[2023-09-13] MEDS: ATORVASTATIN 10 MG TAB PO SCH (08:40)
[2023-09-13] MEDS: MOM 30ML SUSPENSION UDC PO SCH (08:41)
[2023-09-13 08:50] LABS: CK-MB VALUE MASS 1.3 NG/ML (<3.6)
[2023-09-13 08:51] LABS: CPK CREATINE PHOSPHOKINASE 120 U/L (46-171); MB/CK RELATIVE INDEX 1.08 (< OR =4)
[2023-09-13] MEDS ORDERED: methylPREDNISolone 40MG 1ML VIAL IV ONE (09:00)
[2023-09-13] MEDS: methylPREDNISolone 125MG 2ML VIAL IV ONE (10:02)
[2023-09-13] MEDS: IPRATROPIUM 0.02% SOLN 0.5MG 2.5ML NEB INH SCH (11:24)
[2023-09-13] MEDS: BUDESONIDE 0.5 MG/2 ML INHALATION SUSPENSION NEB SCH (15:01)
[2023-09-13] MEDS: ALBUTEROL SULFATE 2.5MG/0.5ML INH NEB SOLN NEB STA (15:01)
[2023-09-13] MEDS ORDERED: methylPREDNISolone 40MG 1ML VIAL IV SCH (16:00)
[2023-09-13] MEDS: methylPREDNISolone 40MG 1ML VIAL IV SCH (21:59)
[2023-09-14] VITALS (11 sets, daily range): BP systolic 133–166; BP diastolic 75–92; TEMP 97.1–98.1; O2SAT 57–99
[2023-09-14 04:32] LABS: BASO % 0.2 % (0.0-1.0); HEMATOCRIT 38.3 % (42.0-52.0); HEMOGLOBIN 12.6 g/dl (13.5-17.5); LYMPH # 0.5 10^3/uL (1.5-5.0); LYMPH % 7.8 % (24.0-44.0); MEAN CORPUSCULAR HEMOGLOBIN 27.8 pg (27.0-33.0); MEAN CORPUSCULAR HGB CONC 32.9 g/dl (32.0-36.5); MEAN CORPUSCULAR VOLUME 84.4 fl (80.0-96.0); MONO # 0.6 10^3/uL (0.0-0.8); MONO % 9.1 % (2.0-8.0); NEUTROPHILS # 5.1 10^3/uL (1.5-8.5); NEUTROPHILS % 82.4 % (36.0-66.0); PLATELET COUNT, AUTOMATED 186 10^3/uL (150-450); RED BLOOD COUNT 4.54 10^6/uL (4.30-6.10); WHITE BLOOD COUNT 6.2 10^3/uL (4.0-10.0)
[2023-09-14 05:00] LABS: BLOOD UREA NITROGEN 19 MG/DL (9-23); CALCIUM LEVEL 9.1 MG/DL (8.3-10.6); CARBON DIOXIDE LEVEL 25 MMOL/L (20-31); CHLORIDE LEVEL 108 MMOL/L (98-107); CREATININE FOR GFR 0.56 MG/DL (0.70-1.30); GLOMERULAR FILTRATION RATE > 60.0 (>49); GLUCOSE, FASTING 147 MG/DL (74-106); MAGNESIUM LEVEL 1.9 MG/DL (1.8-2.4); POTASSIUM SERUM 4.3 MMOL/L (3.5-5.1); SODIUM LEVEL 140 MMOL/L (136-145)
[2023-09-14] MEDS: FUROSEMIDE 40MG/4ML VIAL IV ONE (10:46)
[2023-09-14] MEDS: CYCLOBENZAPRINE 10MG TABLET PO PRN (19:22)
[2023-09-15] VITALS (20 sets, daily range): BP systolic 122–137; BP diastolic 78–86; TEMP 96.7–97.6; O2SAT 93–100
[2023-09-15 05:43] LABS: BASO % 0.2 % (0.0-1.0); HEMATOCRIT 39.6 % (42.0-52.0); HEMOGLOBIN 13.1 g/dl (13.5-17.5); LYMPH # 0.7 10^3/uL (1.5-5.0); LYMPH % 7.3 % (24.0-44.0); MEAN CORPUSCULAR HEMOGLOBIN 28.1 pg (27.0-33.0); MEAN CORPUSCULAR HGB CONC 33.1 g/dl (32.0-36.5); MONO % 10.7 % (2.0-8.0); NEUTROPHILS # 7.3 10^3/uL (1.5-8.5); NEUTROPHILS % 80.9 % (36.0-66.0); PLATELET COUNT, AUTOMATED 209 10^3/uL (150-450); RED BLOOD COUNT 4.66 10^6/uL (4.30-6.10)
[2023-09-15 06:14] LABS: BLOOD UREA NITROGEN 27 MG/DL (9-23); CALCIUM LEVEL 9.3 MG/DL (8.3-10.6); CARBON DIOXIDE LEVEL 29 MMOL/L (20-31); CHLORIDE LEVEL 106 MMOL/L (98-107); CREATININE FOR GFR 0.67 MG/DL (0.70-1.30); GLOMERULAR FILTRATION RATE > 60.0 (>49); GLUCOSE, FASTING 105 MG/DL (74-106); MAGNESIUM LEVEL 1.9 MG/DL (1.8-2.4); POTASSIUM SERUM 4.8 MMOL/L (3.5-5.1); SODIUM LEVEL 141 MMOL/L (136-145)
[2023-09-15] MEDS ORDERED: ISOVUE-370 76% 100ML VIAL As Ordered ONE (10:17)
[2023-09-15] MEDS: MIDAZOLAM INJ 2MG/2ML VIAL IV STA (11:48)
[2023-09-15] MEDS: LIDOCAINE 1% MDV 20ML VIAL SC STA ×2 (11:49)
[2023-09-15] MEDS: flumazeniL 0.5MG/5ML VIAL IV STA ×2 (11:49)
[2023-09-15] MEDS: KETOROLAC 30 MG/ML 1ML VIAL IV ONE (11:50)
[2023-09-15] MEDS: TAMSULOSIN 0.4 MG CAP PO SCH (11:51)
[2023-09-15] MEDS: MIRALAX *UNIT DOSE* 17GM PACKET PO SCH (20:24)
[2023-09-15] MEDS: IBUPROFEN 400MG TAB PO ONE (20:57)
[2023-09-15] MEDS: SENOKOT S TAB PO SCH (20:58)
[2023-09-16] VITALS (28 sets, daily range): BP systolic 136–155; BP diastolic 83–99; TEMP 96.7–98; O2SAT 93–100
[2023-09-16 06:40] LABS: BASO % 0.2 % (0.0-1.0); HEMATOCRIT 41.1 % (42.0-52.0); HEMOGLOBIN 13.5 g/dl (13.5-17.5); LYMPH # 0.7 10^3/uL (1.5-5.0); LYMPH % 5.6 % (24.0-44.0); MEAN CORPUSCULAR HGB CONC 32.8 g/dl (32.0-36.5); MEAN CORPUSCULAR VOLUME 85.3 fl (80.0-96.0); MONO # 0.8 10^3/uL (0.0-0.8); MONO % 6.2 % (2.0-8.0); NEUTROPHILS # 10.6 10^3/uL (1.5-8.5); NEUTROPHILS % 86.8 % (36.0-66.0); PLATELET COUNT, AUTOMATED 224 10^3/uL (150-450); RED BLOOD COUNT 4.82 10^6/uL (4.30-6.10); WHITE BLOOD COUNT 12.3 10^3/uL (4.0-10.0)
[2023-09-16 07:33] LABS: BLOOD UREA NITROGEN 27 MG/DL (9-23); CALCIUM LEVEL 8.9 MG/DL (8.3-10.6); CARBON DIOXIDE LEVEL 31 MMOL/L (20-31); CHLORIDE LEVEL 103 MMOL/L (98-107); CREATININE FOR GFR 0.55 MG/DL (0.70-1.30); GLOMERULAR FILTRATION RATE > 60.0 (>49); GLUCOSE, FASTING 160 MG/DL (74-106); POTASSIUM SERUM 5.1 MMOL/L (3.5-5.1); SODIUM LEVEL 136 MMOL/L (136-145)
[2023-09-16] MEDS: FUROSEMIDE 40MG/4ML VIAL IV ONE (09:33)
[2023-09-16] MEDS: BISACODYL 5MG TAB PO STA (12:37)
[2023-09-16] MEDS: KETOROLAC 30 MG/ML 1ML VIAL IV SCH (18:45)
[2023-09-16] MEDS: BISACODYL 10MG SUPP PR SCH (20:48)
[2023-09-17] VITALS (29 sets, daily range): BP systolic 132–147; BP diastolic 79–89; TEMP 97–98; O2SAT 91–100
[2023-09-17] MEDS: LEVALBUTEROL 1.25MG 0.5ML CONCENTRATE NEB NEB PRN (05:43)
[2023-09-17 07:24] LABS: BASO % 0.3 % (0.0-1.0); EOS % 0.3 % (0.0-3.0); HEMATOCRIT 40.4 % (42.0-52.0); HEMOGLOBIN 13.4 g/dl (13.5-17.5); LYMPH # 1.4 10^3/uL (1.5-5.0); LYMPH % 9.5 % (24.0-44.0); MEAN CORPUSCULAR HEMOGLOBIN 28.1 pg (27.0-33.0); MEAN CORPUSCULAR HGB CONC 33.2 g/dl (32.0-36.5); MEAN CORPUSCULAR VOLUME 84.7 fl (80.0-96.0); MONO # 1.3 10^3/uL (0.0-0.8); MONO % 8.9 % (2.0-8.0); NEUTROPHILS # 12.1 10^3/uL (1.5-8.5); PLATELET COUNT, AUTOMATED 192 10^3/uL (150-450); RED BLOOD COUNT 4.77 10^6/uL (4.30-6.10); WHITE BLOOD COUNT 15.1 10^3/uL (4.0-10.0)
[2023-09-17 07:45] LABS: BLOOD UREA NITROGEN 31 MG/DL (9-23); CALCIUM LEVEL 9.4 MG/DL (8.3-10.6); CARBON DIOXIDE LEVEL 35 MMOL/L (20-31); CHLORIDE LEVEL 101 MMOL/L (98-107); CREATININE FOR GFR 0.68 MG/DL (0.70-1.30); GLOMERULAR FILTRATION RATE > 60.0 (>49); GLUCOSE, FASTING 91 MG/DL (74-106); MAGNESIUM LEVEL 2.1 MG/DL (1.8-2.4); SODIUM LEVEL 138 MMOL/L (136-145)
[2023-09-17] MEDS: FUROSEMIDE 40MG/4ML VIAL IV ONE ×2 (08:29→10:54)
[2023-09-17] MEDS: predniSONE 20 MG TAB PO SCH (08:30)
[2023-09-17] MEDS: ENOXAPARIN 40MG/0.4ML SYRINGE (J1650 PER 10MG) SC SCH (20:38)
[2023-09-18] VITALS (36 sets, daily range): BP systolic 117–155; BP diastolic 72–91; TEMP 97.1–97.4; O2SAT 88–100
[2023-09-18 06:41] LABS: BASO % 0.2 % (0.0-1.0); EOS % 0.1 % (0.0-3.0); HEMATOCRIT 41.4 % (42.0-52.0); HEMOGLOBIN 13.3 g/dl (13.5-17.5); LYMPH # 1.4 10^3/uL (1.5-5.0); LYMPH % 7.3 % (24.0-44.0); MEAN CORPUSCULAR HEMOGLOBIN 27.7 pg (27.0-33.0); MEAN CORPUSCULAR HGB CONC 32.1 g/dl (32.0-36.5); MEAN CORPUSCULAR VOLUME 86.3 fl (80.0-96.0); MONO # 1.5 10^3/uL (0.0-0.8); MONO % 7.6 % (2.0-8.0); NEUTROPHILS # 16.2 10^3/uL (1.5-8.5); NEUTROPHILS % 83.8 % (36.0-66.0); PLATELET COUNT, AUTOMATED 190 10^3/uL (150-450); WHITE BLOOD COUNT 19.3 10^3/uL (4.0-10.0)
[2023-09-18 07:08] LABS: BLOOD UREA NITROGEN 42 MG/DL (9-23); CALCIUM LEVEL 9.2 MG/DL (8.3-10.6); CARBON DIOXIDE LEVEL 36 MMOL/L (20-31); CHLORIDE LEVEL 101 MMOL/L (98-107); CREATININE FOR GFR 0.82 MG/DL (0.70-1.30); GLOMERULAR FILTRATION RATE > 60.0 (>49); GLUCOSE, FASTING 85 MG/DL (74-106); MAGNESIUM LEVEL 2.5 MG/DL (1.8-2.4); POTASSIUM SERUM 5.3 MMOL/L (3.5-5.1); SODIUM LEVEL 137 MMOL/L (136-145)
[2023-09-18] MEDS: LevoFLOXacin IV 750 MG in IV 1 EA IV SCH (10:00)
[2023-09-18] MEDS: SOD POLYSTYRENE SULFONATE SUSP 15GM 60ML UD PO ONE (10:00)
[2023-09-18] MEDS ORDERED: TALC IPL ONE ×5 (10:30)
[2023-09-19] VITALS (27 sets, daily range): BP systolic 110–140; BP diastolic 79–91; TEMP 97.1–98.4; O2SAT 87–100
[2023-09-19] MEDS: LevoFLOXacin 750 MG TABLET PO SCH (05:08)
[2023-09-19 06:33] LABS: BASO # 0.1 10^3/uL (0.0-0.2); BASO % 0.2 % (0.0-1.0); HEMATOCRIT 42.6 % (42.0-52.0); LYMPH # 1.6 10^3/uL (1.5-5.0); LYMPH % 6.1 % (24.0-44.0); MEAN CORPUSCULAR HEMOGLOBIN 28.4 pg (27.0-33.0); MEAN CORPUSCULAR HGB CONC 32.9 g/dl (32.0-36.5); MEAN CORPUSCULAR VOLUME 86.4 fl (80.0-96.0); MONO # 1.5 10^3/uL (0.0-0.8); MONO % 5.8 % (2.0-8.0); NEUTROPHILS # 22.6 10^3/uL (1.5-8.5); NEUTROPHILS % 86.9 % (36.0-66.0); PLATELET COUNT, AUTOMATED 187 10^3/uL (150-450); RED BLOOD COUNT 4.93 10^6/uL (4.30-6.10)
[2023-09-19 06:54] LABS: BLOOD UREA NITROGEN 30 MG/DL (9-23); CALCIUM LEVEL 9.8 MG/DL (8.3-10.6); CARBON DIOXIDE LEVEL 35 MMOL/L (20-31); CHLORIDE LEVEL 103 MMOL/L (98-107); CREATININE FOR GFR 0.63 MG/DL (0.70-1.30); GLOMERULAR FILTRATION RATE > 60.0 (>49); GLUCOSE, FASTING 107 MG/DL (74-106); MAGNESIUM LEVEL 2.1 MG/DL (1.8-2.4); POTASSIUM SERUM 4.6 MMOL/L (3.5-5.1); SODIUM LEVEL 141 MMOL/L (136-145)
[2023-09-19] MEDS ORDERED: CEFEPIME HCL 2 GM in D5W MINI-BAG PLUS 50 ML IV SCH (07:55)
[2023-09-19 08:42] LABS: AMPHETAMINES LEVEL URINE NEGATIVE (NEGATIVE); BARBITURATES URINE NEGATIVE (NEGATIVE); BENZODIAZEPINES URINE NEGATIVE (NEGATIVE); COCAINE METABOLITE URINE NEGATIVE (NEGATIVE); METHADONE URINE NEGATIVE (NEGATIVE); OPIATES URINE NEGATIVE (NEGATIVE)
[2023-09-19 08:43] LABS: CANNABINOIDS URINE NEGATIVE (NEGATIVE); PHENCYCLIDINE URINE NEGATIVE (NEGATIVE)
[2023-09-19] MEDS: predniSONE 10MG TAB PO SCH (08:57)
[2023-09-19] MEDS: CEFEPIME HCL 2 GM in D5W MINI-BAG PLUS 50 ML IV SCH (10:18)
[2023-09-19 11:39] LABS: PROCALCITONIN 0.11 ng/ml
[2023-09-19] MEDS: DOXYCYCLINE HYCLATE 100 MG in D5W MINI-BAG PLUS 100 ML IV SCH (12:30)
[2023-09-19 12:59] LABS: ABG BASE EXCESS 6.4 (-2.0-2.0); ABG HCO3 30.9 MMOL/L (22.0-26.0); ABG O2 SATURATION 94.5 % (95.0-99.0); ABG PARTIAL PRESSURE CO2 44.1 mmHg (35.0-45.0); ABG PARTIAL PRESSURE O2 71.6 mmHg (75.0-100.0); ABG STANDARD HCO3 30.2 MMOL/L. (22.0-26.0); ABG TOTAL CO2 32.3 MMOL/L (23.0-31.0); ABG pH (ARTERIAL) 7.464 UNITS (7.350-7.450)
[2023-09-20] VITALS (19 sets, daily range): BP systolic 117–146; BP diastolic 76–91; TEMP 97.4–98.4; O2SAT 94–100
[2023-09-20 05:52] LABS: BASO # 0.1 10^3/uL (0.0-0.2); BASO % 0.2 % (0.0-1.0); HEMATOCRIT 39.9 % (42.0-52.0); HEMOGLOBIN 12.7 g/dl (13.5-17.5); LYMPH # 1.7 10^3/uL (1.5-5.0); LYMPH % 6.5 % (24.0-44.0); MEAN CORPUSCULAR HEMOGLOBIN 27.3 pg (27.0-33.0); MEAN CORPUSCULAR HGB CONC 31.8 g/dl (32.0-36.5); MEAN CORPUSCULAR VOLUME 85.8 fl (80.0-96.0); MONO # 1.4 10^3/uL (0.0-0.8); MONO % 5.5 % (2.0-8.0); NEUTROPHILS % 86.7 % (36.0-66.0); PLATELET COUNT, AUTOMATED 156 10^3/uL (150-450); RED BLOOD COUNT 4.65 10^6/uL (4.30-6.10); WHITE BLOOD COUNT 25.4 10^3/uL (4.0-10.0)
[2023-09-20 06:15] LABS: BLOOD UREA NITROGEN 33 MG/DL (9-23); CALCIUM LEVEL 10.2 MG/DL (8.3-10.6); CARBON DIOXIDE LEVEL 31 MMOL/L (20-31); CHLORIDE LEVEL 105 MMOL/L (98-107); CREATININE FOR GFR 0.62 MG/DL (0.70-1.30); GLOMERULAR FILTRATION RATE > 60.0 (>49); GLUCOSE, FASTING 105 MG/DL (74-106); MAGNESIUM LEVEL 1.8 MG/DL (1.8-2.4); POTASSIUM SERUM 4.5 MMOL/L (3.5-5.1); SODIUM LEVEL 141 MMOL/L (136-145)
[2023-09-21] VITALS (46 sets, daily range): BP systolic 115–156; BP diastolic 74–105; TEMP 97.3–98; O2SAT 94–100
[2023-09-21] MEDS: KETOROLAC 30 MG/ML 1ML VIAL IV STA (02:34)
[2023-09-21] MEDS: NYSTATIN 100,000 UNITS/GM TOPICAL PWD 15GM TOP SCH (03:49)
[2023-09-21 06:49] LABS: BASO # 0.1 10^3/uL (0.0-0.2); BASO % 0.3 % (0.0-1.0); HEMATOCRIT 37.5 % (42.0-52.0); HEMOGLOBIN 12.1 g/dl (13.5-17.5); LYMPH # 1.7 10^3/uL (1.5-5.0); LYMPH % 7.7 % (24.0-44.0); MEAN CORPUSCULAR HEMOGLOBIN 27.4 pg (27.0-33.0); MEAN CORPUSCULAR HGB CONC 32.3 g/dl (32.0-36.5); MONO # 1.3 10^3/uL (0.0-0.8); MONO % 5.8 % (2.0-8.0); NEUTROPHILS # 18.6 10^3/uL (1.5-8.5); NEUTROPHILS % 84.8 % (36.0-66.0); PLATELET COUNT, AUTOMATED 148 10^3/uL (150-450); RED BLOOD COUNT 4.41 10^6/uL (4.30-6.10); WHITE BLOOD COUNT 21.9 10^3/uL (4.0-10.0)
[2023-09-21 07:21] LABS: BLOOD UREA NITROGEN 31 MG/DL (9-23); CARBON DIOXIDE LEVEL 32 MMOL/L (20-31); CHLORIDE LEVEL 106 MMOL/L (98-107); CREATININE FOR GFR 0.62 MG/DL (0.70-1.30); GLOMERULAR FILTRATION RATE > 60.0 (>49); GLUCOSE, FASTING 94 MG/DL (74-106); MAGNESIUM LEVEL 1.7 MG/DL (1.8-2.4); POTASSIUM SERUM 4.2 MMOL/L (3.5-5.1); SODIUM LEVEL 139 MMOL/L (136-145)
[2023-09-21] MEDS: flumazeniL 0.5MG/5ML VIAL IV STA (09:51)
[2023-09-21 09:52] LABS: IONIZED CALCIUM 5.5 MG/DL (4.5-5.3)
[2023-09-21] MEDS ORDERED: [UNRECOGNIZED DRUG - REMARK] IPL ONE (10:00)
[2023-09-21] MEDS ORDERED: TALC IPL ONE (10:00)
[2023-09-21 10:12] LABS: ALBUMIN 2.3 G/DL (3.2-5.2)
[2023-09-21] MEDS: MIDAZOLAM INJ 2MG/2ML VIAL IV STA (10:52)
[2023-09-21] MEDS: TALC IPL ONE (11:19)
[2023-09-21] MEDS: NS 1,000 ML IV ONE (11:20)
[2023-09-21] MEDS: [UNRECOGNIZED DRUG - REMARK] IPL ONE (11:20)
[2023-09-21] MEDS: KETOROLAC 30 MG/ML 1ML VIAL IV ONE (11:25)
[2023-09-21] MEDS: IBUPROFEN 600MG TAB PO ONE (21:40)
[2023-09-22] VITALS (17 sets, daily range): BP systolic 111–132; BP diastolic 74–85; TEMP 97.2–99.5; O2SAT 91–99
[2023-09-22 06:49] LABS: BASO # 0.1 10^3/uL (0.0-0.2); BASO % 0.2 % (0.0-1.0); EOS # 0.1 10^3/uL (0.0-0.5); EOS % 0.2 % (0.0-3.0); HEMATOCRIT 37.1 % (42.0-52.0); HEMOGLOBIN 12.3 g/dl (13.5-17.5); LYMPH # 1.4 10^3/uL (1.5-5.0); LYMPH % 4.3 % (24.0-44.0); MEAN CORPUSCULAR HEMOGLOBIN 27.7 pg (27.0-33.0); MEAN CORPUSCULAR HGB CONC 33.2 g/dl (32.0-36.5); MEAN CORPUSCULAR VOLUME 83.6 fl (80.0-96.0); MONO # 1.3 10^3/uL (0.0-0.8); MONO % 3.8 % (2.0-8.0); NEUTROPHILS # 30.1 10^3/uL (1.5-8.5); NEUTROPHILS % 90.4 % (36.0-66.0); PLATELET COUNT, AUTOMATED 122 10^3/uL (150-450); RED BLOOD COUNT 4.44 10^6/uL (4.30-6.10)
[2023-09-22 06:52] LABS: WHITE BLOOD COUNT 33.3 10^3/uL (4.0-10.0)
[2023-09-22 07:21] LABS: BLOOD UREA NITROGEN 28 MG/DL (9-23); CALCIUM LEVEL 9.7 MG/DL (8.3-10.6); CARBON DIOXIDE LEVEL 30 MMOL/L (20-31); CHLORIDE LEVEL 108 MMOL/L (98-107); CREATININE FOR GFR 0.56 MG/DL (0.70-1.30); GLOMERULAR FILTRATION RATE > 60.0 (>49); GLUCOSE, FASTING 104 MG/DL (74-106); MAGNESIUM LEVEL 1.6 MG/DL (1.8-2.4); POTASSIUM SERUM 4.3 MMOL/L (3.5-5.1); SODIUM LEVEL 142 MMOL/L (136-145)
[2023-09-22 07:40] LABS: PROCALCITONIN 0.14 ng/ml
[2023-09-22] MEDS: KETOROLAC 30 MG/ML 1ML VIAL IV SCH (10:55)
[2023-09-22] MEDS: MAG SULF 1GM/100ML (MAG RUN) 1 GM in IV 1 EA IV SCH (10:57)
[2023-09-22] MEDS: D5W/0.9% SODIUM CHLORIDE 1,000 ML IV SCH (11:35)
[2023-09-22] MEDS ORDERED: MAG SULF 1GM/100ML (MAG RUN) 1 GM in IV 1 EA IV SCH (13:00)
[2023-09-23] VITALS (8 sets, daily range): BP systolic 102–124; BP diastolic 63–80; TEMP 97.3–100.6; O2SAT 92–100
[2023-09-23 01:39] LABS: ABG BASE EXCESS 3.2 (-2.0-2.0); ABG HCO3 27.5 MMOL/L (22.0-26.0); ABG O2 SATURATION 98.9 % (95.0-99.0); ABG PARTIAL PRESSURE O2 164.4 mmHg (75.0-100.0); ABG STANDARD HCO3 27.4 MMOL/L. (22.0-26.0); ABG TOTAL CO2 28.8 MMOL/L (23.0-31.0); ABG pH (ARTERIAL) 7.445 UNITS (7.350-7.450)
[2023-09-23 05:49] LABS: BASO # 0.1 10^3/uL (0.0-0.2); BASO % 0.3 % (0.0-1.0); EOS # 0.2 10^3/uL (0.0-0.5); HEMATOCRIT 32.3 % (42.0-52.0); LYMPH # 1.5 10^3/uL (1.5-5.0); LYMPH % 6.6 % (24.0-44.0); MEAN CORPUSCULAR HGB CONC 31.9 g/dl (32.0-36.5); MEAN CORPUSCULAR VOLUME 84.6 fl (80.0-96.0); MONO % 4.6 % (2.0-8.0); NEUTROPHILS # 19.5 10^3/uL (1.5-8.5); NEUTROPHILS % 86.7 % (36.0-66.0); RED BLOOD COUNT 3.82 10^6/uL (4.30-6.10); WHITE BLOOD COUNT 22.5 10^3/uL (4.0-10.0)
[2023-09-23 05:50] LABS: HEMOGLOBIN 10.3 g/dl (13.5-17.5); PLATELET COUNT, AUTOMATED 96 10^3/uL (150-450)
[2023-09-23 05:59] LABS: BLOOD UREA NITROGEN 28 MG/DL (9-23); CALCIUM LEVEL 9.4 MG/DL (8.3-10.6); CARBON DIOXIDE LEVEL 29 MMOL/L (20-31); CHLORIDE LEVEL 107 MMOL/L (98-107); GLOMERULAR FILTRATION RATE > 60.0 (>49); GLUCOSE, FASTING 111 MG/DL (74-106); MAGNESIUM LEVEL 2.2 MG/DL (1.8-2.4); POTASSIUM SERUM 4.2 MMOL/L (3.5-5.1); SODIUM LEVEL 138 MMOL/L (136-145)
[2023-09-23] MEDS: FUROSEMIDE 20MG/2ML VIAL IV ONE (17:00)
[2023-09-24 04:47] LABS: BASO # 0.1 10^3/uL (0.0-0.2); BASO % 0.2 % (0.0-1.0); EOS # 0.2 10^3/uL (0.0-0.5); EOS % 0.7 % (0.0-3.0); HEMATOCRIT 34.9 % (42.0-52.0); HEMOGLOBIN 11.6 g/dl (13.5-17.5); LYMPH # 1.2 10^3/uL (1.5-5.0); LYMPH % 3.6 % (24.0-44.0); MEAN CORPUSCULAR HEMOGLOBIN 27.7 pg (27.0-33.0); MEAN CORPUSCULAR HGB CONC 33.2 g/dl (32.0-36.5); MEAN CORPUSCULAR VOLUME 83.3 fl (80.0-96.0); MONO # 1.2 10^3/uL (0.0-0.8); MONO % 3.7 % (2.0-8.0); PLATELET COUNT, AUTOMATED 109 10^3/uL (150-450); RED BLOOD COUNT 4.19 10^6/uL (4.30-6.10)
[2023-09-24 05:09] LABS: BLOOD UREA NITROGEN 25 MG/DL (9-23); CALCIUM LEVEL 10.2 MG/DL (8.3-10.6); CARBON DIOXIDE LEVEL 28 MMOL/L (20-31); CHLORIDE LEVEL 110 MMOL/L (98-107); CREATININE FOR GFR 0.55 MG/DL (0.70-1.30); GLOMERULAR FILTRATION RATE > 60.0 (>49); GLUCOSE, FASTING 105 MG/DL (74-106); MAGNESIUM LEVEL 1.8 MG/DL (1.8-2.4); POTASSIUM SERUM 4.4 MMOL/L (3.5-5.1); SODIUM LEVEL 143 MMOL/L (136-145)
[2023-09-24 07:40] VITALS: BP 138/87; TEMP 98.1; O2SAT 92
[2023-09-24 11:38] VITALS: BP 101/70; TEMP 98.5; O2SAT 94
[2023-09-24 11:38] LABS: BASO # 0.1 10^3/uL (0.0-0.2); BASO % 0.3 % (0.0-1.0); HEMATOCRIT 36.4 % (42.0-52.0); LYMPH # 0.8 10^3/uL (1.5-5.0); LYMPH % 1.7 % (24.0-44.0); MEAN CORPUSCULAR HEMOGLOBIN 28.1 pg (27.0-33.0); MEAN CORPUSCULAR VOLUME 85.2 fl (80.0-96.0); MONO % 2.1 % (2.0-8.0); NEUTROPHILS # 42.2 10^3/uL (1.5-8.5); NEUTROPHILS % 94.3 % (36.0-66.0); RED BLOOD COUNT 4.27 10^6/uL (4.30-6.10)
[2023-09-24 11:58] LABS: PLATELET COUNT, AUTOMATED 82 10^3/uL (150-450); WHITE BLOOD COUNT 44.7 10^3/uL (4.0-10.0)
[2023-09-24] MEDS: LACTOBACILLUS ACIDOPHILUS CAP (BACID) PO SCH (13:21)
[2023-09-24] MEDS: MEROPENEM INJ 1 GM in IV 1 EA IV SCH (13:21)
[2023-09-24] MEDS: VANCOMYCIN HCL 1,000 MG, VIAL MATE ADAPTER 1 EACH in D5W 250 ML IV ONE (14:33)
[2023-09-24 15:37] VITALS: BP 114/73; TEMP 98.9; O2SAT 94
[2023-09-24 20:00] VITALS: BP 107/70; TEMP 98.8; O2SAT 97
[2023-09-24] MEDS: VANCOMYCIN HCL 1,000 MG, VIAL MATE ADAPTER 1 EACH in D5W 250 ML IV SCH (21:57)
[2023-09-25] VITALS (22 sets, daily range): BP systolic 94–131; BP diastolic 66–83; TEMP 97.4–98.8; O2SAT 90–99
[2023-09-25 08:01] LABS: BASO # 0.1 10^3/uL (0.0-0.2); BASO % 0.3 % (0.0-1.0); EOS # 0.2 10^3/uL (0.0-0.5); EOS % 0.4 % (0.0-3.0); HEMATOCRIT 34.6 % (42.0-52.0); HEMOGLOBIN 11.4 g/dl (13.5-17.5); LYMPH % 2.6 % (24.0-44.0); MEAN CORPUSCULAR HEMOGLOBIN 27.8 pg (27.0-33.0); MEAN CORPUSCULAR HGB CONC 32.9 g/dl (32.0-36.5); MEAN CORPUSCULAR VOLUME 84.4 fl (80.0-96.0); MONO # 1.2 10^3/uL (0.0-0.8); MONO % 3.1 % (2.0-8.0); NEUTROPHILS # 36.7 10^3/uL (1.5-8.5); NEUTROPHILS % 92.4 % (36.0-66.0); PLATELET COUNT, AUTOMATED 114 10^3/uL (150-450)
[2023-09-25 08:04] LABS: WHITE BLOOD COUNT 39.8 10^3/uL (4.0-10.0)
[2023-09-25 08:20] LABS: BLOOD UREA NITROGEN 28 MG/DL (9-23); CALCIUM LEVEL 11.1 MG/DL (8.3-10.6); CARBON DIOXIDE LEVEL 29 MMOL/L (20-31); CHLORIDE LEVEL 111 MMOL/L (98-107); CREATININE FOR GFR 0.54 MG/DL (0.70-1.30); GLOMERULAR FILTRATION RATE > 60.0 (>49); GLUCOSE, FASTING 133 MG/DL (74-106); MAGNESIUM LEVEL 1.8 MG/DL (1.8-2.4); POTASSIUM SERUM 4.4 MMOL/L (3.5-5.1); SODIUM LEVEL 143 MMOL/L (136-145)
[2023-09-26] VITALS (15 sets, daily range): BP systolic 105–143; BP diastolic 66–84; TEMP 97.4–97.7; O2SAT 90–93
[2023-09-26 08:09] LABS: BASO # 0.1 10^3/uL (0.0-0.2); BASO % 0.4 % (0.0-1.0); EOS # 0.3 10^3/uL (0.0-0.5); EOS % 0.9 % (0.0-3.0); HEMATOCRIT 35.4 % (42.0-52.0); HEMOGLOBIN 11.8 g/dl (13.5-17.5); LYMPH # 0.9 10^3/uL (1.5-5.0); LYMPH % 2.5 % (24.0-44.0); MEAN CORPUSCULAR HEMOGLOBIN 27.8 pg (27.0-33.0); MEAN CORPUSCULAR HGB CONC 33.3 g/dl (32.0-36.5); MEAN CORPUSCULAR VOLUME 83.5 fl (80.0-96.0); MONO # 1.3 10^3/uL (0.0-0.8); MONO % 3.4 % (2.0-8.0); NEUTROPHILS # 33.7 10^3/uL (1.5-8.5); NEUTROPHILS % 91.7 % (36.0-66.0); PLATELET COUNT, AUTOMATED 118 10^3/uL (150-450); RED BLOOD COUNT 4.24 10^6/uL (4.30-6.10)
[2023-09-26 08:11] LABS: WHITE BLOOD COUNT 36.8 10^3/uL (4.0-10.0)
[2023-09-26 08:34] LABS: ALBUMIN 2.1 G/DL (3.2-5.2); BLOOD UREA NITROGEN 23 MG/DL (9-23); CALCIUM LEVEL 11.3 MG/DL (8.3-10.6); CARBON DIOXIDE LEVEL 30 MMOL/L (20-31); CHLORIDE LEVEL 108 MMOL/L (98-107); CREATININE FOR GFR 0.54 MG/DL (0.70-1.30); GLOMERULAR FILTRATION RATE > 60.0 (>49); GLUCOSE, FASTING 137 MG/DL (74-106); MAGNESIUM LEVEL 1.7 MG/DL (1.8-2.4); POTASSIUM SERUM 4.2 MMOL/L (3.5-5.1); SODIUM LEVEL 143 MMOL/L (136-145)
[2023-09-26] MEDS: ZOLEDRONIC ACID 4 MG in IV 1 EA IV STA (16:37)
[2023-09-27] MEDS: LEVALBUTEROL HFA 45MCG/ACT 15GM INHALER INH SCH (02:00)
[2023-09-27 03:34] VITALS: BP 146/80; TEMP 97.4; O2SAT 91
[2023-09-27 07:54] VITALS: BP 100/68; TEMP 97.7; O2SAT 94
[2023-09-27 09:27] LABS: BASO # 0.1 10^3/uL (0.0-0.2); BASO % 0.4 % (0.0-1.0); EOS # 0.2 10^3/uL (0.0-0.5); EOS % 0.7 % (0.0-3.0); HEMATOCRIT 33.4 % (42.0-52.0); HEMOGLOBIN 11.3 g/dl (13.5-17.5); LYMPH # 0.8 10^3/uL (1.5-5.0); LYMPH % 2.3 % (24.0-44.0); MEAN CORPUSCULAR HEMOGLOBIN 28.3 pg (27.0-33.0); MEAN CORPUSCULAR HGB CONC 33.8 g/dl (32.0-36.5); MEAN CORPUSCULAR VOLUME 83.5 fl (80.0-96.0); MONO # 1.3 10^3/uL (0.0-0.8); MONO % 3.8 % (2.0-8.0); NEUTROPHILS # 30.9 10^3/uL (1.5-8.5); NEUTROPHILS % 91.8 % (36.0-66.0); PLATELET COUNT, AUTOMATED 120 10^3/uL (150-450)
[2023-09-27 09:31] LABS: WHITE BLOOD COUNT 33.7 10^3/uL (4.0-10.0)
[2023-09-27 09:40] LABS: BLOOD UREA NITROGEN 21 MG/DL (9-23); CALCIUM LEVEL 11.1 MG/DL (8.3-10.6); CARBON DIOXIDE LEVEL 32 MMOL/L (20-31); CHLORIDE LEVEL 108 MMOL/L (98-107); CREATININE FOR GFR 0.52 MG/DL (0.70-1.30); GLOMERULAR FILTRATION RATE > 60.0 (>49); GLUCOSE, FASTING 117 MG/DL (74-106); POTASSIUM SERUM 4.2 MMOL/L (3.5-5.1); SODIUM LEVEL 142 MMOL/L (136-145)
[2023-09-27 10:16] LABS: FREE T4 0.89 NG/DL (0.89-1.76)
[2023-09-27 10:17] LABS: THYROID STIMULATING HORMONE 2.199 uIU/ML (0.55-4.78)
[2023-09-27 11:55] VITALS: BP 120/72; TEMP 97.7; O2SAT 91
[2023-09-27 16:00] VITALS: BP 122/75; TEMP 97.8; O2SAT 93
[2023-09-27 19:50] VITALS: BP 100/72; TEMP 97.1; O2SAT 92
[2023-09-27 23:46] VITALS: BP 105/68; TEMP 97.1; O2SAT 91
[2023-09-28 04:00] VITALS: BP 130/80; TEMP 97.4; O2SAT 92
[2023-09-28 05:40] LABS: BASO # 0.1 10^3/uL (0.0-0.2); BASO % 0.4 % (0.0-1.0); EOS # 0.4 10^3/uL (0.0-0.5); EOS % 1.5 % (0.0-3.0); HEMATOCRIT 31.3 % (42.0-52.0); HEMOGLOBIN 10.3 g/dl (13.5-17.5); LYMPH % 3.7 % (24.0-44.0); MEAN CORPUSCULAR HEMOGLOBIN 28.4 pg (27.0-33.0); MEAN CORPUSCULAR HGB CONC 32.9 g/dl (32.0-36.5); MEAN CORPUSCULAR VOLUME 86.2 fl (80.0-96.0); MONO # 1.3 10^3/uL (0.0-0.8); MONO % 4.7 % (2.0-8.0); NEUTROPHILS # 24.4 10^3/uL (1.5-8.5); NEUTROPHILS % 88.8 % (36.0-66.0); PLATELET COUNT, AUTOMATED 106 10^3/uL (150-450); RED BLOOD COUNT 3.63 10^6/uL (4.30-6.10); WHITE BLOOD COUNT 27.4 10^3/uL (4.0-10.0)
[2023-09-28 05:58] LABS: BLOOD UREA NITROGEN 20 MG/DL (9-23); CALCIUM LEVEL 10.2 MG/DL (8.3-10.6); CARBON DIOXIDE LEVEL 30 MMOL/L (20-31); CHLORIDE LEVEL 106 MMOL/L (98-107); CREATININE FOR GFR 0.55 MG/DL (0.70-1.30); GLOMERULAR FILTRATION RATE > 60.0 (>49); GLUCOSE, FASTING 142 MG/DL (74-106); POTASSIUM SERUM 3.7 MMOL/L (3.5-5.1); SODIUM LEVEL 141 MMOL/L (136-145)
[2023-09-28 07:42] VITALS: BP 115/69; TEMP 97.2; O2SAT 87
[2023-09-28 12:00] VITALS: BP 112/81; TEMP 97.5; O2SAT 90
[2023-09-28] MEDS: BUDESONIDE 180MCG INHALER (PULMICORT FLEXHALER) INH SCH (13:30)
[2023-09-28 14:13] LABS: INR 2.31; PARTIAL THROMBOPLASTIN TIME 41.2 SECONDS (24.8-34.2); PROTHROMBIN TIME 24.6 SECONDS (12.5-14.5)
[2023-09-28 16:00] VITALS: BP 128/80; TEMP 97.4; O2SAT 92
[2023-09-28 19:30] VITALS: BP 120/76; TEMP 97.8; O2SAT 92
[2023-09-29] VITALS (8 sets, daily range): BP systolic 98–129; BP diastolic 58–81; TEMP 97.1–99; O2SAT 92–94
[2023-09-29 05:42] LABS: BASO # 0.1 10^3/uL (0.0-0.2); BASO % 0.4 % (0.0-1.0); EOS # 0.4 10^3/uL (0.0-0.5); EOS % 1.6 % (0.0-3.0); HEMATOCRIT 30.3 % (42.0-52.0); HEMOGLOBIN 10.1 g/dl (13.5-17.5); LYMPH # 1.2 10^3/uL (1.5-5.0); LYMPH % 5.4 % (24.0-44.0); MEAN CORPUSCULAR HEMOGLOBIN 28.2 pg (27.0-33.0); MEAN CORPUSCULAR HGB CONC 33.3 g/dl (32.0-36.5); MEAN CORPUSCULAR VOLUME 84.6 fl (80.0-96.0); MONO # 1.3 10^3/uL (0.0-0.8); MONO % 5.6 % (2.0-8.0); NEUTROPHILS # 19.1 10^3/uL (1.5-8.5); NEUTROPHILS % 86.1 % (36.0-66.0); PLATELET COUNT, AUTOMATED 108 10^3/uL (150-450); RED BLOOD COUNT 3.58 10^6/uL (4.30-6.10); WHITE BLOOD COUNT 22.2 10^3/uL (4.0-10.0)
[2023-09-29 05:55] LABS: BLOOD UREA NITROGEN 19 MG/DL (9-23); CALCIUM LEVEL 9.7 MG/DL (8.3-10.6); CARBON DIOXIDE LEVEL 29 MMOL/L (20-31); CHLORIDE LEVEL 106 MMOL/L (98-107); CREATININE FOR GFR 0.48 MG/DL (0.70-1.30); GLOMERULAR FILTRATION RATE > 60.0 (>49); GLUCOSE, FASTING 92 MG/DL (74-106); SODIUM LEVEL 140 MMOL/L (136-145)
[2023-09-30 04:37] VITALS: BP 138/80; TEMP 97.9; O2SAT 95
[2023-09-30 05:49] LABS: BASO # 0.1 10^3/uL (0.0-0.2); BASO % 0.2 % (0.0-1.0); HEMATOCRIT 34.4 % (42.0-52.0); HEMOGLOBIN 11.5 g/dl (13.5-17.5); LYMPH # 0.8 10^3/uL (1.5-5.0); MEAN CORPUSCULAR HEMOGLOBIN 28.5 pg (27.0-33.0); MEAN CORPUSCULAR HGB CONC 33.4 g/dl (32.0-36.5); MEAN CORPUSCULAR VOLUME 85.4 fl (80.0-96.0); MONO # 1.2 10^3/uL (0.0-0.8); MONO % 4.3 % (2.0-8.0); NEUTROPHILS # 25.1 10^3/uL (1.5-8.5); NEUTROPHILS % 91.8 % (36.0-66.0); PLATELET COUNT, AUTOMATED 112 10^3/uL (150-450); RED BLOOD COUNT 4.03 10^6/uL (4.30-6.10); WHITE BLOOD COUNT 27.4 10^3/uL (4.0-10.0)
[2023-09-30 05:59] LABS: BLOOD UREA NITROGEN 24 MG/DL (9-23); CALCIUM LEVEL 9.7 MG/DL (8.3-10.6); CARBON DIOXIDE LEVEL 25 MMOL/L (20-31); CHLORIDE LEVEL 107 MMOL/L (98-107); CREATININE FOR GFR 0.56 MG/DL (0.70-1.30); GLOMERULAR FILTRATION RATE > 60.0 (>49); GLUCOSE, FASTING 92 MG/DL (74-106); POTASSIUM SERUM 4.3 MMOL/L (3.5-5.1); SODIUM LEVEL 142 MMOL/L (136-145)
[2023-09-30 12:09] VITALS: BP 129/77; TEMP 98.8; O2SAT 91
[2023-09-30] MEDS ORDERED: HYOSCYAMINE SULFATE 0.125 MG SUBL TABLET PO PRN (15:30)
[2023-09-30] MEDS ORDERED: ATROPINE SULFATE 1% OPHTH SOLN 2ML BTL SL PRN (15:30)
[2023-09-30] MEDS ORDERED: FLEET ENEMA PR PRN (15:30)
[2023-09-30] MEDS ORDERED: BISACODYL 10MG SUPP PR PRN (15:30)
[2023-09-30] MEDS: LORazepam 1 MG TAB PO PRN (20:12)
[2023-10-01] MEDS: LORazepam 2 MG/ML 1ML VIAL IV PRN (01:34)
[2023-10-01] MEDS: SCOPOLAMINE 1MG TRANSDERMAL PATCH TOP PRN (01:43)
[2023-10-01] MEDS: MORPHINE 2 MG/ML 1ML VIAL IV PRN (09:16)
[2023-10-01] MEDS: MORPHINE 10MG/0.5ML ORAL CONCENTRATE SOLUTION U/D SL PRN (20:50)
[2023-10-03] MEDS: LEVALBUTEROL HFA 45MCG/ACT 15GM INHALER INH PRN (14:54)
[2023-10-05] MEDS: MORPHINE 10MG/0.5ML ORAL CONCENTRATE SOLUTION U/D SL PRN (13:50)
== END 2023-10-06 02:05 | disposition expired | DRG 180 ==
LOC: M ED 11:13 → EDBD 11:13 → M ED INP 13:39 → M ICU 14:41 → M PCU 09-14 12:01 → M MSPAV 10-01 01:20
PROVIDERS: ADMIT Internal Medicine; ATTEND Internal Medicine
PROC: 0W9930Z Drainage of Right Pleural Cavity with Drainage Device, Percutaneous Approach (ICD-10-PCS; 2023-09-13)
PROC: B246ZZZ Ultrasonography of Right and Left Heart (ICD-10-PCS; 2023-09-13)
PROC: 3E0L3GC Introduction of Other Therapeutic Substance into Pleural Cavity, Percutaneous Approach (ICD-10-PCS; principal; 2023-09-21)
DX: C34.11 Malignant neoplasm of upper lobe, right bronchus or lung (principal); U07.1 COVID-19; J12.82 Pneumonia due to coronavirus disease 2019; D61.810 Antineoplastic chemotherapy induced pancytopenia; J86.0 Pyothorax with fistula; J15.69 Pneumonia due to other Gram-negative bacteria; G93.41 Metabolic encephalopathy; J91.0 Malignant pleural effusion; J94.8 Other specified pleural conditions; J44.1 Chronic obstructive pulmonary disease with (acute) exacerbation; R47.01 Aphasia; J44.0 Chronic obstructive pulmonary disease with (acute) lower respiratory infection; N39.0 Urinary tract infection, site not specified; N13.2 Hydronephrosis with renal and ureteral calculous obstruction; J70.1 Chronic and other pulmonary manifestations due to radiation; Z66 Do not resuscitate; Z92.3 Personal history of irradiation; I10 Essential (primary) hypertension; E11.9 Type 2 diabetes mellitus without complications; N40.1 Benign prostatic hyperplasia with lower urinary tract symptoms; F25.0 Schizoaffective disorder, bipolar type; Z96.652 Presence of left artificial knee joint; Z87.891 Personal history of nicotine dependence; K76.89 Other specified diseases of liver; K59.00 Constipation, unspecified; Z79.52 Long term (current) use of systemic steroids; Z79.899 Other long term (current) drug therapy; Z88.0 Allergy status to penicillin; Z88.8 Allergy status to other drugs, medicaments and biological substances; E78.5 Hyperlipidemia, unspecified; M54.9 Dorsalgia, unspecified; G89.29 Other chronic pain; R55 Syncope and collapse; E83.42 Hypomagnesemia; R47.1 Dysarthria and anarthria; E87.5 Hyperkalemia; R13.10 Dysphagia, unspecified; E83.52 Hypercalcemia; T81.82XA Emphysema (subcutaneous) resulting from a procedure, initial encounter; R57.1 Hypovolemic shock